=== PATIENT | male | born 1945 | race Caucasian/White ===

== ENCOUNTER → 2021-12-07 | Outpatient (CLI) | payer SELFPAY, OTHER ==
--- NOTE | 2021-12-07 06:41 | MRI_ITS ---
STUDY: MRI LEFT SHOULDER REASON FOR EXAM: Left shoulder pain for 4 months, decreased range of motion, no specific injury. TECHNIQUE: Standardized fat and water weighted pulse sequences were obtained in all 3 orthogonal planes. COMPARISON: None. FINDINGS: There is mild supraspinatus/infraspinatus tendinosis (T2 coronal images 8-14) without discrete tendon tear. Normal subscapularis tendon. Normal teres minor tendon. Normal supraspinatus muscle. Normal infraspinatus muscle. Normal subscapularis muscle. Normal teres minor muscle. Normal glenohumeral articulation. Normal humeral head and visualized proximal humerus. Normal biceps labral complex. Normal intracapsular long biceps tendon. Normal labrum. Normal capsulo- ligamentous complex. There is acromioclavicular arthrosis without substantial undersurface osteophytes (T2 sagittal image 5). There is a Type II morphology (curved), with a neutral orientation. There is a small volume of subacromial-subdeltoid bursal fluid. Normal visualized coracohumeral and coracoacromial ligaments. Normal deltoid muscle. Normal trapezius muscle. MRI/Upper Ext Joint Only(Routine) IMPRESSION: Mild supraspinatus/infraspinatus tendinosis without demonstrated rotator cuff tear. Acromioclavicular arthrosis. Mild subacromial-subdeltoid bursitis. Electronically Signed: Ricardo Hernandez MD at 8:56 EDT ,
--- NOTE | 2021-12-07 06:41 | MRI_ITS ---
STUDY: MRI RIGHT SHOULDER REASON FOR EXAM: Right shoulder pain for 4 months, decreased range of motion, no specific injury. TECHNIQUE: Standardized fat and water weighted pulse sequences were obtained in all 3 orthogonal planes. COMPARISON: None. FINDINGS: There is supraspinatus tendinosis and a small intrasubstance partial-thickness tear of the distal supraspinatus tendon (T2 coronal image 11) measuring 0.7 cm in length. Normal infraspinatus tendon. Normal subscapularis tendon. Normal teres minor tendon. Normal supraspinatus muscle. Normal infraspinatus muscle. Normal subscapularis muscle. Normal teres minor muscle. Normal glenohumeral articulation. Normal humeral head and visualized proximal humerus. There is a suspected SLAP lesion (T2 coronal images 8-10). Normal intracapsular long biceps tendon. Normal capsulo- ligamentous complex. There is acromioclavicular arthrosis without substantial undersurface osteophytes (T2 sagittal image 13). There is a Type II morphology (curved), with a neutral orientation. There is a small volume of subacromial-subdeltoid bursal fluid. Normal visualized coracohumeral and coracoacromial ligaments. Normal deltoid muscle. Normal trapezius muscle. MRI/Upper Ext Joint Only(Routine) IMPRESSION: Small intrasubstance partial-thickness tear and tendinosis of the supraspinatus tendon. Suspected SLAP lesion. Acromioclavicular arthrosis. Mild subacromial-subdeltoid bursitis. Electronically Signed: Ricardo Hernandez MD at 8:55 EDT ,
== END | disposition home or self-care (01) ==
PROVIDERS: PCP Family Medicine
DX: M75.101 Unspecified rotator cuff tear or rupture of right shoulder, not specified as traumatic (principal); M75.102 Unspecified rotator cuff tear or rupture of left shoulder, not specified as traumatic
CPT/HCPCS: 73221

== ENCOUNTER → 2023-10-09 | Outpatient (CLI) | payer OTHER, SELFPAY ==
[2023-10-09 11:30] LABS: Hematocrit 39.2 % (40-54); Mean Corp Hgb Conc 33.2 g/dL (32-36); Mean Corpuscular Hgb 28.3 pg (27.0-32.0); Mean Corpuscular Volume 85.4 fL (80-94); Mean Platelet Vol. 9.7 fl (6.2-12.0); Platelet Count 215 K/mm3 (150-450); RBC Distribution Width CV 14.5 % (11.6-14.6); RBC Distribution Width SD 44.7 fl (35.1-43.9); Red Blood Count 4.59 M/mm3 (4.6-6.2); White Blood Count 8.2 K/mm3 (4.4-11.0)
[2023-10-09 11:55] LABS: ALB/GLOB Ratio 0.9 RATIO (0.9-2.4); AST(SGOT) 9 U/L (15-37); Alanine Aminotransfer ALT/SGPT 19 U/L (16-61); Albumin, Serum 3.5 g/dL (3.2-5.0); Alkaline Phosphatase 105 U/L (45-117); Anion Gap 5 (5-15); BUN 21 mg/dL (7-18); BUN/Creat Ratio 16.7 RATIO (10-20); Calcium,Total 9.6 mg/dL (8.5-10.1); Chloride 106 mmol/L (98-107); Cholesterol 105 mg/dL (200); Creatinine, Serum 1.26 mg/dL (0.70-1.30); EST Glomerular Filtration Rate 59 mL/min (>60); Est Glom Filt Rate - Afr Amer 71 mL/min (>60); Globulin 3.9 g/dL (2.2-4.2); Glucose 128 mg/dL (74-106); High Density Lipoprotein 46 mg/dL; Potassium 4.1 mmol/L (3.5-5.1); Protein, Total 7.4 g/dL (6.4-8.2); Sodium Level 139 mmol/L (136-145); Triglycerides 125 mg/dL; Very Low Density Lipoprotein 25 mg/dL (5-40)
== END | disposition home or self-care (01) ==
LOC: LAB 10:50
PROVIDERS: PCP Nurse Practitioner Family; Referring Provider Internal Medicine Cardiovascular Disease; Visit Provider Internal Medicine Cardiovascular Disease
DX: I11.0 Hypertensive heart disease with heart failure (principal); I48.0 Paroxysmal atrial fibrillation; R55 Syncope and collapse; E78.5 Hyperlipidemia, unspecified; I25.10 Atherosclerotic heart disease of native coronary artery without angina pectoris; R06.02 Shortness of breath
CPT/HCPCS: 36415; 80053; 80061; 85027

== ENCOUNTER → 2023-10-26 | Outpatient (CLI) | payer OTHER, SELFPAY | END | disposition home or self-care (01) | LOC: PSN 08:43 | PROVIDERS: PCP Nurse Practitioner Family; Referring Provider Internal Medicine Cardiovascular Disease; Visit Provider Internal Medicine Cardiovascular Disease | DX: R55 Syncope and collapse (principal); I48.0 Paroxysmal atrial fibrillation; I49.1 Atrial premature depolarization | CPT/HCPCS: 93225; 93226 ==

== ENCOUNTER → 2023-10-29 | Outpatient (CLI) | payer SELFPAY, OTHER ==
--- NOTE | 2023-10-29 08:35 | ECHOCS_ITS ---
Reason For Study: SOB/Dyspnea Procedure This was a 2D Doppler, Color Flow transthoracic echocardiogram. The study was technically difficult. Contrast injection was performed. Exam performed in department. Left Ventricle Normal size and thickness. The left ventricular ejection fraction is 60 %. Stage 1 diastolic dysfunction. Right Ventricle Normal right ventricle. Atria There is mild biatrial dilatation. Bubble contrast study positive for tiny PFO. Mitral Valve Mild mitral annular calcification. Trivial mitral valve insufficiency. Tricuspid Valve Trivial tricuspid valve insufficiency. Normal pulmonary artery pressure. Aortic Valve Aortic sclerosis, no stenosis. Mild (1+) aortic valve insufficiency. Pulmonic Valve The pulmonic valve is not well visualized. Great Vessels Moderately dilated aortic root. Pericardium/Pleural No pericardial effusion. Medication 22 gauge I.V. with prn adaptor inserted into right arm. Diluted definity 2ml given slow IV push to enhance endocardial definition. Performed a rapid injection of agitated mix of 9 cc saline and 1cc air to assess for atrial septal defect. MMode/2D Measurements & Calculations LVIDd: 4.6 cm IVSd: 1.00 cm Ao root diam: 4.2 cm LVIDs: 3.7 cm LVPWd: 0.87 cm LA dimension: 4.3 cm RVDd: 3.6 cm FS: 20.7 % LAV(MOD-bp): 52.3 ml LVAd ap4: 30.8 cm2 SV(MOD-sp4): 55.1 ml LAV(MOD-bp) Indexed: 25.8 ml/m2 LVLd ap4: 8.0 cm LAV(MOD-sp2): 65.7 ml EDV(MOD-sp4): 98.5 ml LAV(MOD-sp4): 41.4 ml EDV(sp4-el): 100.3 ml LVAs ap4: 19.0 cm2 LVLs ap4: 6.9 cm ESV(MOD-sp4): 43.4 ml ESV(sp4-el): 44.1 ml EF(MOD-sp4): 56.0 % EF(sp4-el): 56.0 % SV(sp4-el): 56.2 ml LA A4 area: 17.8 cm2 RA A4 area: 12.5 cm2 TAPSE: 1.6 cm Time Measurements MV dec time: 0.33 sec Doppler Measurements & Calculations MV E max ubaldo: 42.6 cm/sec Lat Peak E' Ubaldo: 9.7 cm/sec Med Peak E' Ubaldo: 6.6 cm/sec MV A max ubaldo: 76.3 cm/sec E/E' lat: 4.4 E/E' med: 6.4 MV E/A: 0.56 MV V2 max: 78.4 cm/sec MV P1/2t max ubaldo: 51.5 cm/sec Ao V2 max: 176.3 cm/sec MV max P.5 mmHg MV P1/2t: 108.0 msec Ao max P.4 mmHg MV V2 mean: 39.0 cm/sec Ao V2 mean: 116.7 cm/sec MV mean P.74 mmHg MV dec slope: 139.6 cm/sec2 Ao mean P.3 mmHg MV V2 VTI: 21.1 cm MVA(P1/2t): 2.0 cm2 Ao V2 VTI: 29.8 cm AV (velocity ratio): 0.60 AI max ubaldo: 431.2 cm/sec LV V1 max: 81.6 cm/sec PA V2 max: 135.6 cm/sec AI max P.4 mmHg LV V1 max P.7 mmHg PA max PG (full): 6.4 mmHg LV V1 mean P.4 mmHg PA V2 mean: 79.2 cm/sec AI dec slope: 208.2 cm/sec2 LV V1 mean: 54.9 cm/sec PA mean PG (full): 2.6 mmHg AI P1/2t: 606.6 msec LV V1 VTI: 17.9 cm TR max ubaldo: 240.3 cm/sec TR max P.1 mmHg ECHO/Echo Complete W/ Contrast Interpretation Summary The left ventricular ejection fraction is 60 %. Stage 1 diastolic dysfunction. Bubble contrast study positive for tiny PFO. Mild mitral annular calcification. Aortic sclerosis, no stenosis. Mild (1+) aortic valve insufficiency. Moderately dilated aortic root. Ordering Physician: Niranjan Vallecillo Referring Physician: Niranjan Vallecillo Performed By: Atul Zavala, DICK
== END | disposition home or self-care (01) ==
LOC: CVS 08:33
PROVIDERS: PCP Nurse Practitioner Family; Referring Provider Internal Medicine Cardiovascular Disease; Visit Provider Internal Medicine Cardiovascular Disease
DX: I25.10 Atherosclerotic heart disease of native coronary artery without angina pectoris (principal)
CPT/HCPCS: 93306; Q9957; A4216; C8929

== ENCOUNTER → 2024-02-27 | Outpatient (CLI) | payer OTHER, SELFPAY ==
[2024-02-27 11:08] LABS: AST(SGOT) 12 U/L (15-37); Alanine Aminotransfer ALT/SGPT 14 U/L (16-61); Albumin, Serum 3.3 g/dL (3.2-5.0); Alkaline Phosphatase 81 U/L (45-117); Anion Gap 5 (5-15); BUN 19 mg/dL (7-18); BUN/Creat Ratio 14.6 RATIO (10-20); Calcium,Total 9.3 mg/dL (8.5-10.1); Chloride 110 mmol/L (98-107); EST Glomerular Filtration Rate 57 mL/min (>60); Est Glom Filt Rate - Afr Amer 69 mL/min (>60); Globulin 3.4 g/dL (2.2-4.2); Glucose 120 mg/dL (74-106); Magnesium 1.9 mg/dL (1.6-2.6); Potassium 3.8 mmol/L (3.5-5.1); Protein, Total 6.7 g/dL (6.4-8.2); Sodium Level 141 mmol/L (136-145)
== END | disposition home or self-care (01) ==
LOC: LAB 09:47
PROVIDERS: PCP Nurse Practitioner Family; Referring Provider Internal Medicine Cardiovascular Disease; Visit Provider Internal Medicine Cardiovascular Disease
DX: I10 Essential (primary) hypertension (principal); I48.0 Paroxysmal atrial fibrillation
CPT/HCPCS: 80053; 83735

== ENCOUNTER → 2024-09-22 | Outpatient (CLI) | payer OTHER, SELFPAY ==
[2024-09-22 11:22] LABS: Absolute Lymphocyte Count 1.29 X10^3/uL (0.83-4.51); Absolute Neutrophil Count 5.3 X10^3/uL (2.0-7.7); Basophil# 0.03 X10^3/uL; Basophil% 0.4 % (0-1); Eosinophil# 0.21 X10^3/uL; Eosinophils% 2.7 % (0-5); Hematocrit 36.4 % (40-54); Hemoglobin 12.1 g/dL (13.0-16.5); Lymphocyte # 1.29 X10^3/ul (0.83-4.51); Lymphocyte % 16.8 % (19-41); Mean Corp Hgb Conc 33.2 g/dL (32-36); Mean Corpuscular Hgb 29.4 pg (27.0-32.0); Mean Corpuscular Volume 88.6 fL (80-94); Mean Platelet Vol. 9.9 fl (6.2-12.0); Monocyte# 0.78 X10^3/uL; Monocyte% 10.2 % (0-10); NRBC Flagged by Analyzer 0 % (0-5); Neutrophil # 5.34 X10^3/uL (2.7-7.7); Neutrophil % 69.5 % (47-70); Platelet Count 188 K/mm3 (150-450); RBC Distribution Width CV 13.5 % (11.6-14.6); RBC Distribution Width SD 43.5 fl (35.1-43.9); Red Blood Count 4.11 M/mm3 (4.6-6.2); White Blood Count 7.7 K/mm3 (4.4-11.0)
[2024-09-22 12:13] LABS: Anion Gap 10 (5-15); BUN 23 mg/dL (4-19); BUN/Creat Ratio 17.1 RATIO (10-20); Calcium,Total 9.5 mg/dL (7.6-11.0); Carbon Dioxide 24.8 mmol/L (21.0-32.0); Chloride 104 mmol/L (98-108); Creatinine, Serum 1.33 mg/dL (0.70-1.20); EST Glomerular Filtration Rate 55 (>60); Glucose 166 mg/dL (70-99); Potassium 4.4 mmol/L (3.3-5.1); Sodium Level 139 mmol/L (133-145)
--- OUTSIDE RECORDS SUMMARY | 2024-09-22 22:19 | XMS RPT_ITS | CCD ---
Author Organization [facility] Care Team Providers Care Software Configuration Engineer Name Role Phone ALPA BOWLES MD Primary Care Physician TY WEEMS MD Attending Unavailable FAUSTINA BENNETT, TY Admitting Unavailable ALPA BOWLES MD Consulting Unavailable ALPA BOWLES MD Primary Care Unavailable DAKSHA CLINTON-CCHARLA Unavailable ISRAEL GR MD Unavailable ALPA BOWLES MD Unavailable SHAHLA BOWLES MD Unavailable Nancy GR MD Unavailable NELDA NESBITT Unavailable Unavailable Devon RN, Mariana Unavailable Unavailable Unavailable Unavailable Kristina LUJAN, Natalie Unavailable Unavaila ble VONDA ADLER MD Attending UnavailVONDA Howell MD Admitting Unavailabl VONDA Butler MD Primary Care Unavailabl e BOWLES, SHAHLA T Consulting Unavailable PROVIDER, UNKNOWN Consulting Unavailable PROVIDER, UNKNOWN Consulting Unavailable PROVIDER, UNKNOWN Consulting Unavailable VONDA ADLER MD Admitting UnavailVONDA Howell MD Primary Care Unavailabl VONDA Butler MD Attending Unavailabl e BOWLES, SHAHLA T Consulting Unavailable PROVIDER, UNKNOWN Consulting Unavailable PROVIDER, UNKNOWN Consulting Unavailable PROVIDER, UNKNOWN Consulting Unavailable BOWLES, SHAHLA T Consulting Unavailable BOWLES, SHAHLA T Attending Unavailable BOWLES, SHAHLA T Admitting Unavailable BOWLES, SHAHLA T Primary Care Unavailable PROVIDER, UNKNOWN Consulting Unavailable PROVIDER, UNKNOWN Consulting Unavailable PROVIDER, UNKNOWN Consulting Unavailable VONDA ADLER MD Attending UnavailVONDA Howell MD Admitting Unavailabl VONDA Butler MD Primary Care Unavailabl e BOWLES, SHAHLA T Consulting Unavailable PROVIDER, UNKNOWN Consulting Unavailable PROVIDER, UNKNOWN Consulting Unavailable PROVIDER, UNKNOWN Consulting Unavailable VONDA ADLER MD Admitting Unavailabl e VONDA ADLER MD Primary Care Unavailabl e BOWLES, SHAHLA T Consulting Unavailable VONDA ADLER MD Attending Unavailabl e PROVIDER, UNKNOWN Consulting Unavailable PROVIDER, UNKNOWN Consulting Unavailable PROVIDER, UNKNOWN Consulting Unavailable VONDA ADLER MD Primary Care Unavailabl e BOWLES, SHAHLA T Consulting Unavailable VONDA ADLER MD Attending Unavailabl e VONDA ADLER MD Admitting Unavailabl e PROVIDER, UNKNOWN Consulting Unavailable PROVIDER, UNKNOWN Consulting Unavailable PROVIDER, UNKNOWN Consulting Unavailable BOWLES, SHAHLA T Primary Care Unavailable BOWLES, SHAHLA T Consulting Unavailable BOWLES, SHAHLA T Attending Unavailable BOWLES, SHAHLA T Admitting Unavailable PROVIDER, UNKNOWN Consulting Unavailable PROVIDER, UNKNOWN Consulting Unavailable PROVIDER, UNKNOWN Consulting Unavailable SARA ROCHE MD Primary Care Unavailable SARA ROCHE MD Attending Unavailable BOWLES, SHAHLA T Consulting Unavailable BOWLES, SHAHLA T Referring Unavailable SARA ROCHE MD Admitting Unavailable PROVIDER, UNKNOWN Consulting Unavailable PROVIDER, UNKNOWN Consulting Unavailable PROVIDER, UNKNOWN Consulting Unavailable Unavailable Unavailable GR DIALYSIS REGISTERED NURSE-BC, GEMA R Unavailable [place] ASSET PROTECTION AGENT, Gema Unavailable Unavailable DAKSHA DIALYSIS REGISTERED NURSE-C, CHARLA Pearl Unavailable Unav ailable TOMMY DIALYSIS REGISTERED NURSE-C, MARICEL Unavailable Oh RMA, Romina Unavailable Unavailable Gr, Gema Primary Care Unavailable Avel, Niranjan Attending Unavailable Gr, Gema Referring Unavailable Gr, Gema Primary Care Unavailable Avel, Niranjan Referring Unavailable Avel, Niranjan Attending Unavailable Marcia Taylor NP Attending Unavailable Gr, Gema Primary Care Unavailable Avel, Niranjan Attending Unavailable Gr, Gema Primary Care Unavailable Avel, Niranjan Attending Unavailable Gr, Gema Primary Care Unavailable Gr, Gema Referring Unavailable Avel, Niranjan Attending Unavailable Gr, Gema Primary Care Unavailable Gr, Gema Referring Unavailable Avel, Niranjan Attending Unavailable Avel, Niranjan Referring Unavailable Gr, Gema Primary Care Unavailable Avel, Niranjan Attending Unavailable Gr, Gema Primary Care Unavailable Avel, Niranjan Referring Unavailable Gr, Gema Primary Care Unavailable Vael, Niranjan Referring Unavailable Niranjan Vallecillo Attending Unavailable Niranjan Vallecillo Attending Unavailable Niranjan Vallecillo Referring Unavailable Gema Gr Primary Care Unavailable EMILEE PATTERSON Attending Unavailable EMILEE PATTERSON Referring Unavailable BRENNEN BOLIVAR Primary Care Unavailable Gema Darby Referring Provider Marcia Baum Attending Provider [phone] Brennen Bolivar MD Primary Care Provider Medications Current Medications Medication Drug Class(es) Dates Sig (Normalized) Sig (Original) apixaban 5 mg oral tablet (16 sources) Factor Xa Inhibitor Start: 08-03-2023 End: 06-16-2024 take 1 tablet by mouth twice daily Apixaban (Eliquis) 5 mg tablet Active 5 mg PO TWICE A DAY 180 June 16, 2024 1:18pm atorvastatin 20 mg oral tablet (20 sources) HMG-CoA Reductase Inhibitor Start: 02-27-2024 take 1 tablet by mouth once daily Atorvastatin 20 mg tablet Active 20 mg PO daily February 27, 2024 1:00am Start: 03-07-2023 End: 02-27-2024 take 1 tablet by mouth at bedtime Atorvastatin 40 mg tablet Discontinued 40 mg PO AT BEDTIME August 08, 2023 12:14pm February 27, 2024 2:27pm Comment on above: Cardio furosemide 20 mg oral tablet (20 sources) Loop Diuretic Start: 02-27-2024 take 1 tablet by mouth once daily Furosemide 20 mg tablet Active 20 mg PO daily February 27, 2024 1:00am On Hold: dizziness Start: 08-08-2023 End: 02-27-2024 take 1 tablet by mouth once daily Furosemide 40 mg tablet Discontinued 40 mg PO DAILY August 08, 2023 12:14pm February 27, 2024 2:26pm Start: 08-03-2023 End: 08-08-2023 Furosemide 40 mg tablet Disc ontinued 20 mg PO DAILY August 03, 2023 11:17am August 08, 2023 11:08am Start: 03-07-2023 End: 08-03-2023 take 1 tablet by mouth once daily Furosemide 40 mg tablet Discontinued 40 mg PO DAILY August 03, 2023 12:00am August 03, 2023 11:21am Comment on above: Cardio spironolactone 25 mg oral tablet (20 sources) Aldosterone Antagonist Start: 03-07-20 End: 08-02-19 take 1 tablet by mouth once daily Spironolactone 25 mg tablet Active 25 mg PO DAILY August 01, 2024 8:22am Comment on above: Cardio tamsulosin hydrochloride 0.4 mg oral capsule (20 sources) alpha-Adrenergic Leonid Start: 03-16-20 tamsulosin 0.4 mg capsule ; 1 capsule daily for 30 days Quantity: 30 {Capsule} Refills: 5 Ordered: 01-Apr-2024 MD SHAHLA BOWLES Start: 01-Apr-2024 Start: 03-06-2023 tamsulosin 0.4 mg oral capsule Dose : 0.4 mg = 1 cap(s), Oral, qDay, # 90 cap(s), 0 Refill(s) Start Date: 03/06/23 Status: Ordered Completed/Discontinued Medications Medication Drug Class(es) Dates Sig (Normalized) Sig (Original) dextromethorphan hydrobromide 2 mg/ml / guaiFENesin 20 mg/ml oral solution (20 sources) Uncompetitive T-yqilxo-B-aspartat e Receptor Antagonist, Sigma-1 Agonist Start: 04-20-2023 End: 10-02-2023 take 5 mL by mouth every four to six hours as needed dextromethorphan- guaifenesin 10 mg-100 mg/5 mL oral syrup ; 5 Milliliter every 4-6 hours as needed for cough for 0 days Quantity: 120 {Milliliter} Refills: 0 Ordered: 02-Oct-2023 MIGEL Shrestha Start: 20-Apr-2023 End: 02-Oct-2023 Status: Inactive Comments: Medication taken as needed. medication to be dispensed in office Comment on above: Medication taken as needed. medication to be dispensed in office losartan potassium 50 mg oral tablet (20 sources) Angiotensin 2 Receptor Leonid Start: 08-08-2023 End: 10-09-2023 take 1 tablet by mouth once daily Losartan 50 mg tablet Discontinued 50 mg PO DAILY August 08, 2023 12:00am October 09, 2023 9:18am Start: 08-03-2023 End: 08-03-2023 Losartan 25 mg tablet Discon tinued 12.5 mg PO DAILY August 03, 2023 12:00am August 03, 2023 11:18am Start: 03-07-2023 losartan 25 mg oral tablet Dose : 25 mg = 1 tab(s), Oral, qDay, # 30 tab(s), 3 Refill(s), Pharmacy: [facility], 170.2, cm, 03/06/23 14:03:00 EST, Height, kg, 03/06/23 14:03:00 EST, Dosing Weight Start Date: 03/07/23 Status: Ordered losartan 25 mg t ablet ; 1/2 daily (25 mg) Comments: Cardio Comment on above: Cardio 24 hr metoprolol succinate 25 mg extended release oral tablet (20 sources) beta-Adrenergic Leonid Start: 03-07-20 End: 11-05-19 take 1 tablet by mouth once daily Metoprolol Succinate 25 mg tablet extended release 24 hr Discontinued 25 mg PO DAILY August 03, 2023 12:00am November 05, 2023 4:42pm mexiletine hydrochloride 200 mg oral capsule (14 sources) Antiarrhythmic Start: 08-03-19 End: 02-27-20 take 1 capsule by mouth every twelve hours Mexiletine 200 mg capsule Discontinued 200 mg PO Q12H 60 August 08, 2023 12:14pm February 27, 2024 2:27pm mexiletine 200 m g capsule ; 1 two times daily (200 mg) Status: Inactive Comments: Cardio Comment on above: Cardio predniSONE 10 mg oral tablet (20 sources) Start: 04-20-2023 End: 04-25-2023 predniSONE 10 mg tablet ; 4 Tablet daily for 5 days Quantity: 30 {Tablet} Refills: 0 Ordered: 30-Apr-2023 MD SHAHLA BOWLES Start: 20-Apr-2023 End: 25-Apr-2023 Status: Inactive Comments: medication to be dispensed in office Comment on above: medication to be dis pensed in office sacubitril 24 mg / valsartan 26 mg oral tablet (1 source) Angiotensin 2 Receptor Leonid Start: 08-03-2023 End: 08-08-2023 Sacubitril-Valsartan (Entresto) 24-26 mg tablet Discontinued 1 {tbl} PO TWICE A DAY August 03, 2023 12:00am August 08, 2023 12:04pm Problems Active Problems Problem Classification Problem Date Documented Da te Episodic/Chronic Abdominal pain (20 sources) Left lower quadrant pain; Translations: [Left lower quadrant pain] 02-24-2021 Episodic Cardiac dysrhythmias (10 sources) Atrial premature complex ; Translations: [Atrial premature depolarization] Onset: 01-23-2024 Chronic Conditions associated with dizziness or vertigo (2 sources) Dizziness; Translations: [Dizziness and giddiness] 09-22-2024 Episodic Congestive heart failure; nonhypertensive (20 sources) Heart failure; Translations: [Heart failure, unspecified] Onset: 03-07-2023 Chronic Comment on above: 40-45% Coronary atherosclerosis and other heart disease (3 sources) Atherosclerotic heart disease of [place] coronary artery without angina pectoris; Translations: [Coronary arteriosclerosis] Onset: 02-27-2024 10-02-2023 Chronic Disorders of lipid metabolism (4 sources) Hyperlipidemia; Translations: [Hyperlipidemia, unspecified] Onset: 03-07-2023 Chronic Essential hypertension (20 sources) Essential hypertension; Translations: [Essential (primary) hypertension] Onset: 03-07-2023 Chronic Comment on above: Soft pressures with fatigue since starting quadruple therapy. Possible heart block in office. Recommend discontinuing metoprolol and follow up cardiology. Will get EKG at their office tomorrow morning. Soft pressures with fatigue since starting quadruple therapy. Possible heart block in office. Recommend discontinuing metoprolol and follow up cardiology. Will get EKG at their office tomorrow morning.Syncopal episode likely due to orthostatic hypotension. Saw his single stroke preformer for this already and being managed. Fluid and electrolyte disorders (2 sources) Hypokalemia; Translations: [Hypokalemia] Onset: 03-07-2023 Episodic Gout and other crystal arthropathies (1 source) Other chondrocalcinosis, right knee; Translations: [Other chondrocalcinosis, right knee] Onset: 04-11-2023 Chronic Heart valve disorders (12 sources) Aortic valve regurgitation; Translations: [Nonrheumatic aortic (valve) insufficiency] 10-30-2023 Chronic Comment on above: Per echo 10/2023 Hyperplasia of prostate (20 sources) Nocturia due to benign prostatic hypertrophy; Translations: [Benign prostatic hyperplasia with lower urinary tract symptoms] 03-16-2023 Chronic Hypertension with complications and secondary hypertension (2 sources) Hypertensive heart failure; Translations: [Hypertensive heart disease with heart failure] Onset: 10-17-2023 Chronic Immunizations and screening for infectious disease (20 sources) Requires diphtheria, tetanus and pertussis vaccination; Translations: [Encounter for immunization] 02-11-2020 Episodic Malaise and fatigue (3 sources) Other fatigue; Translations: [Fatigue] Onset: 02-27-2024 08-03-2023 Episodic Other aftercare (20 sources) Post-discharge follow-up; Translations: [Encounter for follow-up examination after completed treatment for conditions other than malignant neoplasm] 03-15-2023 Episodic Other gastrointestinal disorders (20 sources) Fecal incontinence with fecal urgency; Translations: [Full incontinence of feces] 10-02-2023 Episodic Other lower respiratory disease (2 sources) Dyspnea; Translations: [Shortness of breath] Onset: 03-07-2023 Episodic Other non-traumatic joint disorders (20 sources) Pain in right knee; Translations: [Pain in joint, lower leg] Onset: 04-11-2023 04-05-2023 Episodic Other non-traumatic joint disorders (20 sources) Ankle pain; Translations: [Pain in right ankle and joints of right foot] 04-05-2023 Episodic Other non-traumatic joint disorders (2 sources) Pain in right ankle and joints of right foot; Translations: [Pain in right ankle and joints of right foot] Onset: 04-11-2023 Episodic Other non-traumatic joint disorders (1 source) Effusion, right ankle; Translations: [Effusion, right ankle] Onset: 04-11-2023 Episodic Other non-traumatic joint disorders (1 source) Pain in left knee; Translations: [Pain in left knee] Onset: 04-11-2023 Episodic Other non-traumatic joint disorders (1 source) Effusion, left knee; Translations: [Effusion, left knee] Onset: 04-11-2023 Episodic Other non-traumatic joint disorders (20 sources) Multiple stiff joints; Translations: [Stiffness of unspecified joint, not elsewhere classified] 10-02-2023 Episodic Other nutritional; endocrine; and metabolic disorders (2 sources) Hypomagnesemia; Translations: [Hypomagnesemia] Onset: 03-07-2023 Chronic Other screening for suspected conditions (not mental disorders or infectious disease) (20 sources) Screening status; Translations: [Encounter for screening for malignant neoplasm of colon] 02-11-2020 Episodic Other upper respiratory disease (20 sources) Breath smells unpleasant; Translations: [Halitosis] 02-11-2020 Episodic Jennifer-; endo-; and myocarditis; cardiomyopathy (except that caused by tuberculosis or sexually transmitted disease) (4 sources) Other cardiomyopathies; Translations: [Cardiomyopathy] Onset: 02-27-2024 10-02-2023 Chronic Residual codes; unclassified (1 source) Localized edema; Translations: [Localized edema] Onset: 03-07-2023 Episodic Residual codes; unclassified (20 sources) Bilateral lower limb edema; Translations: [Localized edema] 04-20-2023 Episodic Syncope (20 sources) Syncope and collapse; Translations: [Syncope and collapse] Onset: 02-27-2024 10-02-2023 Episodic Unclassified (20 sources) Knee pain - The onset of the knee pain has been acute and has been occurring in a persistent pattern for weeks. The knee pain involves both knees. The knee pain is described as being located in the anterior knee. Note for Knee pain: also pain in right ankle. Pt was seen 03-15-23 with ankle swelling. Edema improved. Saw Dr Adler yesterday and she restarted Toprol and decreased losartan to 1/2 tab. Ordered pt to wear heart event monitor for 1 week and got labs done yesterday. Follow up with cardio in 1 mo. 04-05-2023 Unclassified (20 sources) LAB DRAW - The labs drawn today include: other: Lyme. The lab was drawn from the left antecubital vein. The lab was ordered by Dr. Ju Bowles. 04-13-2023 Unclassified (15 sources) Fatigue - Symptoms include fatigue, weakness and poor sleep, while symptoms do not include impaired memory, impaired concentration, irritability or anxiety. Onset was 4 week(s) ago (getting worse). 04-20-2023 Unclassified (15 sources) [ADDITIONAL REASON] Edema - Symptoms include edema, while symptoms do not include weight gain. The edema involves both lower extremities. Onset was 2 month(s) ago (Getting worse since heart cath in February. Heart rate fluctuates). Note for Edema: NO chest pain or SOB. Coughing for week or so now. Heart skips a beat 04-20-2023 Unclassified (9 sources) Edema - Symptoms include edema, while symptoms do not include weight gain. The edema involves both lower extremities. Onset was 2 month(s) ago (Getting worse since heart cath in February. Heart rate fluctuates). Note for Edema: NO chest pain or SOB. Coughing for week or so now. Heart skips a beat 04-20-2023 Unclassified (9 sources) [ADDITIONAL REASON] Fatigue - Symptoms include fatigue, weakness and poor sleep, while symptoms do not include impaired memory, impaired concentration, irritability or anxiety. Onset was 4 week(s) ago (getting worse). 04-20-2023 Unclassified (12 sources) HYPERTENSION - The symptoms have been associated with syncope (Patient was out weedeating for about 20 minutes and wanted to go to bathroom. Pretty much passed out. Patient states he was just not clear, dizzy Patients son is concerned about this.), while the symptoms have not been associated with chest pain, diaphoresis, dyspnea, edema, headache, palpitations, visual disturbances or weakness. Note for HYPERTENSION: Patient was at [facility] 08/08/23. Patient does get dizzy upon standing up too quick. 10-02-2023 Unclassified (1 source) Other ventricular tachycardia; Translations: [Other ventricular tachycardia] Onset: 02-27-2024 Past or Other Problems Problem Classification Problem Date Documented Date Episodic/Chronic Other lower respiratory disease (1 source) Shortness of breath; Translations: [Shortness of breath] Onset: 09-11-2023 Episodic Unclassified (16 sources) Follow-up after Hospitalization - The diagnosis of CHF. New medicaitons include: Lipitor, Lasix, Spironolactone, Losartan, Toprol, and Tamsulosin. Note for Follow-up after Hospitalization: Pt was at [facility] on 03/05/23. He went to [facility] 03/06/23 and was discharged 03/07/23. He had a heart cath done. Follow up appt with Dr. Adler in Apr 2023. Pt is very fatigued and still has swelling in his legs that get painful at times. BP at home run low at times (systolic in the 90s). 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 03-15-2023 Unclassified (16 sources) [ADDITIONAL REASON] Transition into care - The patient is transitioning into care from a hospital and a summary of care was reviewed. 03-15-2023 Unclassified (20 sources) Abdominal Pain, Male - Note for Abdominal pain: would like referral for colonoscopy. 02-24-2021 Unclassified (20 sources) [ADDITIONAL REASON] Blood pressure check - Note for Blood pressure check-up: not on any BP meds. 02-24-2021 Unclassified (20 sources) Abdominal Pain, Male - Symptoms include abdominal pain (Left of umbilicus. Has had Hernia surgery in the past and is concerned that he has another hernia. No bulge of abdomen like previuosly. Denies vomiting, diarrhea, urinary burning or nausea.). 02-11-2020 Unclassified (20 sources) !Patient notification of lab results 1 - Gr. Note for !Patient notification of lab results 1: Ricco, your cholesterol and other labs look good. 02-03-2015 Unclassified (20 sources) Complete Physical - Male - Note for Complete physical exam: Last phy 2008. Also think he might have hernia. [place] Gr has done past surgeries. 02-02-2015 Unclassified (1 source) !Patient notification of lab results - Dr. Bowles. The test(s) that you had done were/was x-rays (There is some arthritis present in your knees, but nothing severe. We will wait on the results of your Lyme testing.). You should call our office if you have any questions. 04-13-2023 Unclassified (10 sources) Blood pressure check - Note for Blood pressure check-up: not on any BP meds. 02-24-2021 Unclassified (10 sources) [ADDITIONAL REASON] Abdominal Pain, Male - Note for Abdominal pain: would like referral for colonoscopy. 02-24-2021 Unclassified (20 sources) !Patient notification of lab results - Dr. Bowles. The test(s) that you had done were/was x-rays (There is some arthritis present in your knees, but nothing severe. The Lyme test came back normal.). You should call our office if you have any questions. 04-16-2023 Unclassified (14 sources) Transition into care - The patient is transitioning into care from a hospital and a summary of care was reviewed. 03-15-2023 Unclassified (14 sources) [ADDITIONAL REASON] Follow-up after Hospitalization - The diagnosis of CHF. New medicaitons include: Lipitor, Lasix, Spironolactone, Losartan, Toprol, and Tamsulosin. Note for Follow-up after Hospitalization: Pt was at [facility] ER on 03/05/23. He went to [facility] 03/06/23 and was discharged 03/07/23. He had a heart cath done. Follow up appt with Dr. Adler in Apr 2023. Pt is very fatigued and still has swelling in his legs that get painful at times. BP at home run low at times (systolic in the 90s). 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 03-15-2023 Unclassified (2 sources) Edema - Symptoms do not include edema. 04-28-2024 Unclassified (2 sources) [ADDITIONAL REASON] HYPERTENSION - There has been no associated chest pain, dyspnea or edema. 04-28-2024 Results Test Name Value Interpretation Reference Range Facility [facility] 05-15-2024 [facility] (CARMOB) RICCO ZARATE ([id number]) 1945 M DEF Date Time Provider Department 05/15/24 STIVEN ALICIA During your visit today, we recorded the following information about you: Benoit Cotton 05/15/2024 10:09 AM Signed Erin is calling to reschedule pt apt, apt has been rescheduled Benoit Cotton 05/15/2024 11:03 AM Signed Erin is calling back states pt is also being [facility] they want to cancel apt. Apt has been cancelled Allergies As of Date: 05/15/2024 (No Known Allergies) Date Reviewed: 01/23/2024 Reviewed by: Soo Macias MA - Fully Assessed Reason for Visit: Appointment [[id number]] Prescriptions as of 05/15/2024 - apixaban (ELIQUIS) 5 mg tab(s) Take 5 mg by mouth two times a day. - atorvastatin (LIPITOR) 40 mg tablet Take 40 mg by mouth daily at bedtime. - furosemide (LASIX) 40 mg tablet Take 1 tablet by mouth every afternoon. - metoprolol succinate ER (TOPROL XL) 25 mg 24 hr tablet Take 1 tablet by mouth every afternoon. - mexiletine (MEXITIL) 200 mg capsule Take 1 capsule by mouth every 12 hours. - spironolactone (ALDACTONE) 25 mg tablet Take 1 tablet by mouth every afternoon. - tamsulosin (FLOMAX) 0.4 mg Take 1 capsule by mouth every afternoon. Problem List As Of Date: 05/15/2024 (None) Encounter Status:Closed by BENOIT COTTON on 05/15/24 [facility]FFN Telephone (DIANAMOB) RICCO ZARATE ([id number]) 1945 M DEF Date Time Provider Department 05/15/24 EMILEE PATTERSON During your visit today, we recorded the following information about you: Benoit Cotton 05/15/2024 10:15 AM Signed Erin is calling states pt single stroke preformer Dr Vallecillo at the [facility] wants pt to have an ablation, pt is in afib. Benoit Cotton 05/15/2024 11:04 AM Signed Erin is calling back pt is being seen [facility] Allergies As of Date: 05/15/2024 (No Known Allergies) Date Reviewed: 01/23/2024 Reviewed by: Soo Macias MA - Fully Assessed Reason for Visit: Patient Question [1477] Prescriptions as of 05/15/2024 - apixaban (ELIQUIS) 5 mg tab(s) Take 5 mg by mouth two times a day. - atorvastatin (LIPITOR) 40 mg tablet Take 40 mg by mouth daily at bedtime. - furosemide (LASIX) 40 mg tablet Take 1 tablet by mouth every afternoon. - metoprolol succinate ER (TOPROL XL) 25 mg 24 hr tablet Take 1 tablet by mouth every afternoon. - mexiletine (MEXITIL) 200 mg capsule Take 1 capsule by mouth every 12 hours. - spironolactone (ALDACTONE) 25 mg tablet Take 1 tablet by mouth every afternoon. - tamsulosin (FLOMAX) 0.4 mg Take 1 capsule by mouth every afternoon. Problem List As Of Date: 05/15/2024 (None) Encounter Status:Closed by BENOIT COTTON on 05/15/24 [facility] 12 Lead EKG performed by [facility] on 02-27-2024 12 Lead EKG performed by [address] [id number] 12 Lead E[facility] performed by [facility] [place] 02/27/24 0910 MR#: [id number] Acct: [id number] Name: RICCO ZARATE Rep #: [id number] : 1945 79 From: Niranjan Vallecillo MD Attending Dr: Dr. Niranjan Vallecillo MD Status: DEP AMB Ordering Dr: Niranjan Vallecillo MD Date: 02/27/24 [place] [facility] [place] M C Admitted: [facility] [place]/12 Lead EKG performed by [facility] ECG Report Interpretation -----Sinus Rhythm - occasional ectopic ventricular beat - Nonspecific T-abnormality. ABNORMAL Electronically signed on 05/05/2024 at 11:[address] Niranajn Vallecillo [employer] Version [id number] 05/05/24 112 Date Niranjan Vallecillo MD CC: Gema Gr Date Dictated: 02/27/24909 Date Transcribed: 02/27/24909 Manager Fine Dining: IGNACIA Signed Normal [facility] Cardiology Visit Reporton Cardiology Visit Report [facility] [address] [place] [address] OFFICE VISIT Date of Service: 02/27/24 MR#: [id number] Acct: [id number] Name: RICCO ZARATE Rep #: [id number] : 1945 Provider: Dr. Niranjan Vallecillo MD Age/Sex: 79/M Location: [facility] [place] Status: Signed HPI HPI History of Present Illness Details: This gentleman with history of nonischemic cardiomyopathy, mild CAD diagnosed on coronary angiography, PVCs, paroxysmal atrial fibrillation and NSVT is here for follow-up visit. Denies any chest pains. No shortness of breath. No orthopnea PND. No ankle edema. Denies any palpitations. Occasionally feels lightheaded. No syncope or presyncope. Patient saw electrophysiology at [facility]. According to the patient's , it was advised that he stop taking his mexiletine. However he has not done that yet. He wanted to see us here before. Intake Vital Signs 10/09/23 09:12 02/27/24 08:23 Height 5 ft 7 in 5 ft 7 in Weight: 207 lb BMI 32.4 BP 100/68 Blood Pressure Location Lt brachial Position Sitting Respiration 18 Pulse 70 Pulse Source NIBP Intake Visit Reasons: 3 M French Tutor Required: No Accompanied by: Is patient in pain?: Yes Allergies No Known Allergies Allergy (Verified 02/27/24 09:02) Medications ???Medication ???Instructions ???Recorded ???Confirmed ???Type apixaban 5 mg tablet (Eliquis) 5 mg PO BID 08/03/23 02/27/24 History tamsulosin 0.4 mg capsule 0.4 mg PO QHS 08/03/23 02/27/24 History atorvastatin 40 mg tablet 40 mg PO QHS #30 tabs 08/08/23 02/27/24 Rx furosemide 40 mg tablet 40 mg PO DAILY #60 tabs 08/08/23 02/27/24 Rx mexiletine 200 mg capsule 200 mg PO Q12H #60 caps 08/08/23 02/27/24 Rx spironolactone 25 mg tablet 25 mg PO DAILY #30 tabs 08/08/23 02/27/24 Rx metoprolol succinate 25 mg 25 mg PO DAILY #90 tabs 11/05/23 02/27/24 Rx tablet,extended release 24 hr Ejection fraction %: 60 Have you fallen in the past year?: Yes (singular; dizzy episode; no major injuries) PFSH Medical History Bilateral edema of lower extremity Cardiomyopathy CHF (congestive heart failure) Chronic systolic (congestive) heart failure Coronary artery disease Dyslipidemia Fatigue Hypertension Insomnia Nonischemic cardiomyopathy NSVT (nonsustained ventricular tachycardia) PAC (premature atrial contraction) Pain in both knees Paroxysmal atrial fibrillation PVC (premature ventricular contraction) SOB (shortness of breath) Weakness Surgical History Hx of arthroscopy of right knee Hx of cardiac catheterization ( 03/07/23) Hx of inguinal hernia repair Hx of lithotripsy Family History Father , 82 No problems noted. Mother Cancer Brother CHF (congestive heart failure) Social History Smoking Status: Never smoker alcohol intake: never substance use type: does not use caffeine: Yes Type: carbonated beverages and coffee ROS Const Const: Negative for fatigue, weakness, headache(s) or weight gain ENT ENT: Positive for dizziness (episodic); Negative for headache(s), Nosebleed/epistaxis or balance problems Cardio Chest Pain: No Palpitations: No Edema: None Muscle aches with walking: None Resp Respiratory: Negative for SOB with activity, SOB at rest or SOB orthopnea SOB lying down GI GI: Negative nausea, vomiting or heartburn Musc Musc: Negative for muscle aches/ myalgia, muscle weakness, joint pain or balance problems Neuro Neuro: Positive for dizziness (episodic), lightheadedness (singular episode. resulted in fall with no injury) and near syncope; Negative for syncope, headache(s) or weakness Endo Endo: Negative for fatigue Cardiology Exam Const Appearance: comfortable and no acute distress Nutritional Appearance: well nourished Neck Neck: no JVD Carotids: Negative bruit Chest Auscultation: Bilateral: Clear to Auscultation Cardio Rate: regular rate Rhythm: regular rhythm Heart sounds: S1 normal and S2 normal 2/6 systolic murmur at base. Neuro General: patient alert, patient awake and patient oriented x3 Extremities Lower Extremity Edema: None: Bilateral Supplemental Info Supplemental Information Echocardiogram 10/29/2023: Interpretation Summary The left ventricular ejection fraction is 60 %. Stage 1 diastolic dysfunction. Bubble contrast study positive for tiny PFO. Mild mitral annular calcification. Aortic sclerosis, no stenosis. Mild (1+) aortic valve insufficiency. Moderately dilated aortic root. ECHOCARDIOGRAM 03/05/23: CONCLUSION 1. There is mild concentric left ventr (more content not included)... Normal [facility] Comprehensive Metabolic Prof ilon 02-27-2024 Albumin [Mass/Vol] 3.3 g/dL Normal 3.2-5.0 [facility] Comment on above: Performed By: #### L 501.5200, L500.4050 ####[facility] [address] [place], [address] Albumin/Globulin [Mass ratio] 1.0 {ratio} Normal 0.9-2.4 [facility] Comment on above: Performed By: #### L 501.5200, L500.4050 ####[facility] [address] [place], [address] ALK P 81 U/L Normal 45-117 [facility] Comment on above: Performed By: #### L 501.5200, L500.4050 ####[facility] [address] [place], [address] ALT [Catalytic activity/Vol] 14 U/L Low 16-61 [facility] Comment on above: Performed By: #### L 501.5200, L500.4050 ####[facility] [address] [place], [address] AST [Catalytic activity/Vol] 12 U/L Low 15-37 [facility] Comment on above: Performed By: #### L 501.5200, L500.4050 ####[facility] [address] [place], [address] Bilirubin [Mass/Vol] 0.40 mg/dL Normal 0.20-1.[address] [facility] Comment on above: Result Comment: For patients on eltrombopag therapy, use of Dimension [place] TBIL is not recommended. Performed By: #### L 501.5200, L500.4050 ####[facility] [address] [place], [address] BUN/CRE 14.6 RATIO Normal 10-20 [facility] Comment on above: Performed By: #### L 501.5200, L500.4050 ####[facility] [address] [place], [address] CA,Total 9.3 mg/dL Normal 8.5-10.1 [facility] Comment on above: Performed By: #### L 501.5200, L500.4050 ####[facility] [address] [place], [address] Chloride [Moles/Vol] 110 mmol/L High 98-[address] [facility] Comment on above: Performed By: #### L 501.5200, L500.4050 ####[facility] [address] [place], [address] CO2 [Moles/Vol] 27.0 mmol/L Normal 21.0-32.0 [facility] Comment on above: Performed By: #### L 501.5200, L500.4050 ####[facility] [address] [place], [address] Creatinine [Mass/Vol] 1.30 mg/dL Normal 0.70-1.30 [facility] Comment on above: Result Comment: The validity of the calculated GFR GFRAA in patients over 70 years has not been determined. Clinical correlation is essential. Performed By: #### L 501.5200, L500.4050 ####[facility] [address] [place], [address] EST GFR - AA 69 mL/min Normal >60 [facility] Comment on above: Result Comment: Afri can Swazi GFR Calc Performed By: #### L 501.5200, L500.4050 ####[facility] [address] [place], [address] GAP 5 Normal 5-15 [facility] Comment on above: Performed By: #### L 501.5200, L500.4050 ####[facility] [address] [place], [address] GFR/1.73 sq M.predicted among non-blacks MDRD (S/P/Bld) [Vol rate/Area] 57 mL/min/{1.73_m2} Low >60 [facility] Comment on above: Result Comment: Non- GFR Calc Performed By: #### L 501.5200, L500.4050 ####[facility] [address] [place], [address] Globulin (S) [Mass/Vol] 3.4 g/dL Normal 2.2-4.2 [facility] Comment on above: Performed By: #### L 501.5200, L500.4050 ####[facility] [address] [place], [address] Glucose [Mass/Vol] 120 mg/dL High 74-106 [facility] Comment on above: Result Comment: Fast ing Glucose result from 100 to 125 mg/dL suggests IMPAIRED HOMEOSTASIS per A.D.A. criteria. Performed By: #### L 501.5200, L500.4050 ####[facility] [address] [place], [address] Potassium [Moles/Vol] 3.8 mmol/L Normal 3.5-5.1 [facility] Comment on above: Performed By: #### L 501.5200, L500.4050 ####[facility] [address] [place], [address] Sodium [Moles/Vol] 141 mmol/L Normal 136-145 [facility] Comment on above: Performed By: #### L 501.5200, L500.4050 ####[facility] [address] [place], [address] T PROT 6.7 g/dL Normal 6.4-8.2 [facility] Comment on above: Performed By: #### L 501.5200, L500.4050 ####[facility] [address] [place], [address] Urea nitrogen [Mass/Vol] 19 mg/dL High 7-18 [facility] Comment on above: Performed By: #### L 501.5200, L500.4050 ####[facility] [address] [place], [address] Magnesiumon 02-27-2024 Magnesium [Mass/Vol] 1.9 mg/dL Normal 1.6-2.[address] [facility] Comment on above: Performed By: #### L 501.5200, L500.4050 ####[facility] [address] [place], [address] CNOVon 01-23-2024 CNOV Office Visit (DIANAMOB ) RICCO ZARATE ([id number]) 1945 M DEF Date Time Provider Department 01/23/24 1:00 PM EMILEE PATTERSON During your visit today, we recorded the following information about you: Pulse Blood pressure Weight Height 104/minute 103/71 92.1 kg 1.702 m Emilee Patterson MD 02/21/2024 4:26 PM Signed [facility] Department of Cardiovascular Medicine SECTION OF CARDIAC PACING and ELECTROPHYSIOLOGY OUTPATIENT VISIT DATE January 23, 2024 OUTPATIENT VISIT TYPE NEW PRIMARY CARE PHYSICIAN: Gema Gr [address] [place] [address] REFERRING PHYSICIAN: Niranjan Vallecillo MD [facility] [address] [place] [address] CHIEF COMPLAINT: Consultation requested by Emilee Patterson for an opinion regarding Ricco Zarate. My final recommendations will be communicated back to the requesting physician by way of shared Medical record or letter to requesting physician via US mail. HISTORY OF PRESENT ILLNESS: Mr. Zarate is a 79 year old male referred by Dr Vallecillo with past medical history of chronic systolic CHF, fatigue, HLD, HN, insomnia, NICM, NSVT, PAC/PVCs, paroxysmal atrial fibrillation, and SOB. He is on Toprol XL therapy however is not anticoagulated due to cost of Eliquis. He is referred for atrial ablation or watchman evaluation. Ricco presents for his office visit appointment this afternoon accompanied by his and son. He understands that he has been referred for consideration of treatment options for his AF. He admits that he cannot feel his AF. He denies any episodes of chest pain. His family reports that he has chronic dizziness since starting medication. Ricco admits to feeling a little bit dizzy at this time. Reviewed a BP/HR log. They report his Losartan was discontinued. He denies any cardiac-related physical restriction. They report that he has had more fatigue. He denies any palpitations. He was diagnosed with AF in February,. He has worn three monitors in the past. He was admitted to the hospital at the time of his diagnosis. He reports his dizziness is the same all the time. He was not dizzy prior to starting medication. Reviewed the nature, anatomy and physiology of AF with diagram. PAST CARDIAC HISTORY: PAST MEDICAL HISTORY Diagnosis Date Bilateral edema of lower extremity Chronic systolic CHF (congestive heart failure) (HCC) Fatigue HLD (hyperlipidemia) HTN (untreated) Insomnia NICM (nonischemic cardiomyopathy) (HCC) NSVT (nonsustained ventricular tachycardia) (HCC) Other ventricular tachycardia (HCC) PAC (premature atrial contraction) Pain in knee Paroxysmal atrial fibrillation (HCC) PVC (premature ventricular contraction) SOB (shortness of breath) Weakness PAST SURGICAL HISTORY Procedure Laterality Date CYSTOSCOPY,URETEROSCO PY,LITHOTRIPSY 12/08/2011 HEART CATHETERIZATION 03/07/2023 no signifiacant CAD identified KNEE ARTHROSCOPY/SURGERY Right REPAIR INGUINAL HERNIA SOCIAL HISTORY FAMILY HISTORY Problem Relation Age of Onset Cancer Mother No Known Problems Father Heart Failure Brother ALLERGIES: ALLERGIES No Known Allergies MEDICATIONS: atorvastatin (LIPITOR) 40 mg tablet Take 40 mg by mouth daily at bedtime. furosemide (LASIX) 40 mg tablet Take 1 tablet by mouth every afternoon. metoprolol succinate ER (TOPROL XL) 25 mg 24 hr tablet Take 1 tablet by mouth every afternoon. mexiletine (MEXITIL) 200 mg capsule Take 1 capsule by mouth every 12 hours. spironolactone (ALDACTONE) 25 mg tablet Take 1 tablet by mouth every afternoon. tamsulosin (FLOMAX) 0.4 mg Take 1 capsule by mouth every afternoon. REVIEW OF SYSTEMS: 10 system ROS was performed and is negative except except that which is listed in the HPI PHYSICAL EXAMINATION: BP 103/71 (BP Site: Left Arm, BP Position: Sitting, BP Cuff Size: Regular Adult) Pulse 104 Ht 170.2 cm (5' 7) Wt 92.1 kg (203 lb) SpO2 94% BMI 31.79 kg/m? General: Well appearing, in no acute distress. Skin: No clubbing, no cyanosis. Eyes: Extra ocular movements intact Oropharynx: Teeth in good repair. Neck: No jugular venous distention, no carotid bruits, carotids have a normal upstroke, no palpable thyromegaly. Lungs: Clear to auscultation bilaterally, no wheezing or rhonchi. Heart: Regular rhythm, PMI not displaced, S1, S2 normal, no S3, no S4, no heaves, no rub and no murmur. Abdomen: Soft, nontender, bowel sounds normal, no palpable organomegaly, no bruits. Extremities: No peripheral edema . Grade 2/4 distal pulses bilaterally. Neuro: Oriented to person, place and time, alert, cooperative, gait coordinated. CARDIOVASCULAR MEDICINE TESTING: Echocardiogram Report [facility] DOS: (more content not included)... Normal [facility] Echo Complete W/ Contraston 10-29-2023 Echo Complete W/ Contrast [facility] [address] [place] [address] Echo Complete W/ Contrast 10/29/23 0852 MR#: [id number] Acct: [id number] Name: RICCO ZARATE Rep #: [id number] : 1945 78 From: Niranjan Vallecillo MD Attending Dr: Dr. Niranjan Vallecillo MD Status: REG CLI Ordering Dr: Niranjan Vallecillo MD Date: 10/29/23 Location: [facility] Sex: M C Admitted: Reason For Study: SOB/Dyspnea Procedure This was a 2D Doppler, Color Flow transthoracic echocardiogram. The study was technically difficult. Contrast injection was performed. Exam performed in department. Left Ventricle Normal size and thickness. The left ventricular ejection fraction is 60 %. Stage 1 diastolic dysfunction. Right Ventricle Normal right ventricle. Atria There is mild biatrial dilatation. Bubble contrast study positive for tiny PFO. Mitral Valve Mild mitral annular calcification. Trivial mitral valve insufficiency. Tricuspid Valve Trivial tricuspid valve insufficiency. Normal pulmonary artery pressure. Aortic Valve Aortic sclerosis, no stenosis. Mild (1+) aortic valve insufficiency. Pulmonic Valve The pulmonic valve is not well visualized. Great Vessels Moderately dilated aortic root. Pericardium/Pleural No pericardial effusion. Medication 22 gauge I.V. with prn adaptor inserted into right arm. Diluted definity 2ml given slow IV push to enhance endocardial definition. Performed a rapid injection of agitated mix of 9 cc saline and 1cc air to assess for atrial septal defect. MMode/2D Measurements Calculations LVIDd: 4.6 cm IVSd: 1.00 cm Ao root diam: 4.2 cm LVIDs: 3.7 cm LVPWd: 0.87 cm LA dimension: 4.3 cm RVDd: 3.6 cm FS: 20.7 % LAV(MOD-bp): 52.3 ml LVAd ap4: 30.8 cm2 SV(MOD-sp4): 55.1 ml LAV(MOD-bp) Indexed: 25.8 ml/m2 LVLd ap4: 8.0 cm LAV(MOD-sp2): 65.7 ml EDV(MOD-sp4): 98.5 ml LAV(MOD-sp4): 41.4 ml EDV(sp4-el): 100.3 ml LVAs ap4: 19.0 cm2 LVLs ap4: 6.9 cm ESV(MOD-sp4): 43.4 ml ESV(sp4-el): 44.1 ml EF(MOD-sp4): 56.0 % EF(sp4-el): 56.0 % SV(sp4-el): 56.2 ml LA A4 area: 17.8 cm2 RA A4 area: 12.5 cm2 TAPSE: 1.6 cm Time Measurements MV dec time: 0.33 sec Doppler Measurements Calculations MV E max gricelda: 42.6 cm/sec Lat Peak E' Gricelda: 9.7 cm/sec Med Peak E' Gricelda: 6.6 cm/sec MV A max gricelda: 76.3 cm/sec E/E' lat: 4.4 E/E' med: 6.4 MV E/A: 0.56 MV V2 max: 78.4 cm/sec MV P1/2t max gricelda: 51.5 cm/sec Ao V2 max: 176.3 cm/sec MV max P.5 mmHg MV P1/2t: 108.0 msec Ao max P.4 mmHg MV V2 mean: 39.0 cm/sec Ao V2 mean: 116.7 cm/sec MV mean P.74 mmHg MV dec slope: 139.6 cm/sec2 Ao mean P.3 mmHg MV V2 VTI: 21.1 cm MVA(P1/2t): 2.0 cm2 Ao V2 VTI: 29.8 cm AV (velocity ratio): 0.60 AI max gricelda: 431.2 cm/sec LV V1 max: 81.6 cm/sec PA V2 max: 135.6 cm/sec AI max P.4 mmHg LV V1 max P.7 mmHg PA max PG (full): 6.4 mmHg LV V1 mean P.4 mmHg PA V2 mean: 79.2 cm/sec AI dec slope: 208.2 cm/sec2 LV V1 mean: 54.9 cm/sec PA mean PG (full): 2.6 mmHg AI P1/2t: 606.6 msec LV V1 VTI: 17.9 cm TR max gricelda: 240.3 cm/sec TR max P.1 mmHg ECHO/Echo Complete W/ Contrast Interpretation Summary The left ventricular ejection fraction is 60 %. Stage 1 diastolic dysfunction. Bubble contrast study positive for tiny PFO. Mild mitral annular calcification. Aortic sclerosis, no stenosis. Mild (1+) aortic valve insufficiency. Moderately dilated aortic root. Ordering Physician: Niranjan Vallecillo Referring Physician: Niranjan Vallecillo Performed By: Atul Zavala [facility] 10/30/23904 Date Niranjan Vallecillo MD CC: Gema Gr; Dr. Niranjan Vallecillo MD Date Dictated: 10/29/23851 Date Transcribed: 10/30/23904 Manager Fine Dining: Signed Normal [facility] 12 Lead EKG performed by [facility] on 10-09-2023 12 Lead EKG performed by [facility] [address] [place] [address] 12 Lead EKG performed by [facility] [place] 10/09/23 0937 MR#: [id number] Acct: [id number] Name: RICCO ZARATE Rep #: [id number] : 1945 78 From: Niranjan Vallecillo MD Attending Dr: Dr. Niranjan Vallecillo MD Status: DEP AMB Ordering Dr: Niranjan Vallecillo MD Date: 10/09/23 [place] [facility] Sex: M C Admitted: [facility] [place]/12 Lead EKG performed by [facility] [place] ECG Report Interpretation -----Sinus Rhythm -consider old anterior infarct. - Nonspecific T-abnormality. ABNORMAL Electronically signed on 05/05/2024 at 10:[address] Niranjan Fitzpatrick Software Version [id number] 05/05/24 1019 Date Niranjan Vallecillo MD CC: Gema Gr Date Dictated: 10/09/23936 Date Transcribed: 10/09/23936 Manager Fine Dining: IGNACIA Signed Normal [facility] CBC-Complete Blood Cnt No Di ffon 10-09-2023 Erythrocyte distribution width (RBC) [Ratio] 14.5 % Normal 11.6-14.6 [facility] Comment on above: Performed By: #### L 500.4100, L100.0500, L500.4050 #### [facility] [address] [place], [address] Hematocrit (Bld) [Volume fraction] 39.2 % Low 40-54 [facility] Comment on above: Performed By: #### L 500.4100, L100.0500, L500.4050 #### [facility] [address] [place], [address] Hemoglobin (Bld) [Mass/Vol] 13.0 g/dL Normal 13.0-16.5 [facility] Comment on above: Performed By: #### L 500.4100, L100.0500, L500.4050 #### [facility] [address] [place], [address] MCH (RBC) [Entitic mass] 28.3 pg Normal 27.0-32.0 [facility] Comment on above: Performed By: #### L 500.4100, L100.0500, L500.4050 #### [facility] [address] [place], [address] MCHC (RBC) [Mass/Vol] 33.2 g/dL Normal 32-36 [facility] Comment on above: Performed By: #### L 500.4100, L100.0500, L500.4050 #### [facility] [address] [place], [address] MCV (RBC) [Entitic vol] 85.4 fL Normal 80-94 [facility] Comment on above: Performed By: #### L 500.4100, L100.0500, L500.4050 #### [facility] [address] [place], [address] Platelet mean volume (Bld) [Entitic vol] 9.7 fL Normal 6.2-12.0 [facility] Comment on above: Performed By: #### L 500.4100, L100.0500, L500.4050 #### [facility] [address] [place], [address] Platelets (Bld) [#/Vol] 215 10*3/uL Normal 150-450 [facility] Comment on above: Performed By: #### L 500.4100, L100.0500, L500.4050 #### [facility] [address] [place], [address] RBC (Bld) [#/Vol] 4.59 10*6/uL Low 4.6-6.2 [facility] Comment on above: Performed By: #### L 500.4100, L100.0500, L500.4050 #### [facility] [address] [place], [address] RDW SD 44.7 fl High 35.1-43.9 [facility] Comment on above: Performed By: #### L 500.4100, L100.0500, L500.4050 #### [facility] [address] [place], [address] WBC (Bld) [#/Vol] 8.2 10*3/uL Normal 4.4-11.0 [facility] Comment on above: Performed By: #### L 500.4100, L100.0500, L500.4050 #### [facility] [address] [place], [address] Cardiology Visit Reporton Cardiology Visit Report [facility] [address] [place] [address] OFFICE VISIT Date of Service: 10/09/23 MR#: [id number] Acct: [id number] Name: RICCO ZARATE Rep #: [id number] : 1945 Provider: Dr. Niranjan Vallecillo MD Age/Sex: 78/M Location: [facility] Status: Signed HPI HPI History of Present Illness Details: This very pleasant gentleman with past medical history significant for nonischemic cardiomyopathy, paroxysmal atrial fibrillation, hypertension, dyslipidemia and frequent PVCs is here for follow-up visit. Per patient, about a week ago he has had an episode where and he felt very lightheaded. Per him, he was out in his yard. After that, he sat down after standing up again, he felt very lightheaded and dizzy. No syncope but he eased himself to the ground. No recurrence since then. He has had no palpitations or shortness of breath or diaphoresis at the time. Denies any chest pains. No palpitations. No orthopnea. No PND. No ankle edema. Intake Vital Signs 08/08/23 11:19 10/09/23 09:12 Height 5 ft 7 in 5 ft 7 in Weight: 203 lb 202 lb BMI 31.8 31.6 BP 132/79 H 120/80 Blood Pressure Location Lt brachial Lt brachial Position Sitting Sitting Respiration 16 16 Pulse 73 82 Pulse Source Auscultation Monitor Intake Visit Reasons: Syncope and Collapse (PCP Gema Gr) French Tutor Required: No Accompanied by: Is patient in pain?: No Allergies No Known Allergies Allergy (Verified 10/09/23 09:17) Medications ???Medication ???Instructions ???Recorded ???Confirmed ???Type apixaban 5 mg tablet (Eliquis) 5 mg PO BID 08/03/23 10/09/23 History metoprolol succinate 25 mg 25 mg PO DAILY 08/03/23 10/09/23 History tablet,extended release 24 hr tamsulosin 0.4 mg capsule 0.4 mg PO QHS 08/03/23 10/09/23 History atorvastatin 40 mg tablet 40 mg PO QHS #30 tabs 08/08/23 10/09/23 Rx furosemide 40 mg tablet 40 mg PO DAILY #60 tabs 08/08/23 10/09/23 Rx mexiletine 200 mg capsule 200 mg PO Q12H #60 caps 08/08/23 10/09/23 Rx spironolactone 25 mg tablet 25 mg PO DAILY #30 tabs 08/08/23 10/09/23 Rx Ejection fraction %: 40 Have you fallen in the past year?: Yes PFSH Medical History Nonischemic cardiomyopathy Chronic systolic (congestive) heart failure Hypertension Dyslipidemia Coronary artery disease PAC (premature atrial contraction) Paroxysmal atrial fibrillation SOB (shortness of breath) PVC (premature ventricular contraction) NSVT (nonsustained ventricular tachycardia) Cardiomyopathy CHF (congestive heart failure) Insomnia Weakness Fatigue Pain in both knees Bilateral edema of lower extremity Surgical History Hx of cardiac catheterization ( 03/07/23) Hx of lithotripsy Hx of inguinal hernia repair Hx of arthroscopy of right knee Family History Father , 82 No problems noted. Mother Cancer Brother CHF (congestive heart failure) Social History Smoking Status: Never smoker alcohol intake: never substance use type: does not use caffeine: Yes Type: carbonated beverages and coffee ROS Const Const: Positive for weakness and daytime sleepiness (sometimes); Negative for fatigue, headache(s), frequent falls, difficulty sleeping or excessive sweating Eyes Eyes: Positive for change in vision; Negative for loss of peripheral vision, transient loss of vision, blurry vision, double vision or tunnel vision ENT ENT: Positive for dizziness and balance problems; Negative for headache(s) or Nosebleed/epistaxis Cardio Chest Pain: No Palpitations: No Edema: None Muscle aches with walking: None Resp Respiratory: Negative for SOB with activity, SOB at rest, SOB orthopnea SOB lying down, Cough or paroxysmal nocturnal dyspnea GI GI: Negative nausea, vomiting, heartburn or black,tarry stools : Negative for hematuria Musc Musc: Positive for muscle weakness, joint pain (right leg) and balance problems; Negative for muscle aches/ myalgia Skin Skin: Negative non-healing lesions, rash or unusual bruising Neuro Neuro: Positive for dizziness, lightheadedness, near syncope and weakness; Negative for syncope, frequent falls, headache(s), blurry vision, double vision or lack of coordination Carlyle Hematologic/Lymphatic : Negative for easy bleeding or easy bruising Endo Endo: Negative for fatigue, excessive sweating or increased thirst/drinking Psych Psych: Negative for anxiety or depression Allergy Allergy/Immunology: Negative for hives and Negative for rash Cardiology Exam Const Appearance: comfortable and no acute distress Nutritional Appearance: well nour (more content not included)... Normal [facility] Comprehensive Metabolic Prof ilon 10-09-2023 Albumin [Mass/Vol] 3.5 g/dL Normal 3.2-5.0 [facility] Comment on above: Performed By: #### L 500.4100, L100.0500, L500.4050 #### [facility] [address] [place], [address] Albumin/Globulin [Mass ratio] 0.9 {ratio} Normal 0.9-2.4 [facility] Comment on above: Performed By: #### L 500.4100, L100.0500, L500.4050 #### [facility] [address] [place], [address] ALK P 105 U/L Normal 45-117 [facility] Comment on above: Performed By: #### L 500.4100, L100.0500, L500.4050 #### [facility] [address] [place], [address] ALT [Catalytic activity/Vol] 19 U/L Normal 16-61 [facility] Comment on above: Performed By: #### L 500.4100, L100.0500, L500.4050 #### [facility] [address] [place], [address] AST [Catalytic activity/Vol] 9 U/L Low 15-37 [facility] Comment on above: Performed By: #### L 500.4100, L100.0500, L500.4050 #### [facility] [address] [place], [address] Bilirubin [Mass/Vol] 0.50 mg/dL Normal 0.20-1.[address] [facility] Comment on above: Result Comment: For patients on eltrombopag therapy, use of Dimension [place] TBIL is not recommended. Performed By: #### L 500.4100, L100.0500, L500.4050 #### [facility] [address] [place], [address] BUN/CRE 16.7 RATIO Normal 10-20 [facility] Comment on above: Performed By: #### L 500.4100, L100.0500, L500.4050 #### [facility] [address] [place], [address] CA,Total 9.6 mg/dL Normal 8.5-10.1 [facility] Comment on above: Performed By: #### L 500.4100, L100.0500, L500.4050 #### [facility] [address] [place], [address] Chloride [Moles/Vol] 106 mmol/L Normal 98-[address] [facility] Comment on above: Performed By: #### L 500.4100, L100.0500, L500.4050 #### [facility] [address] [place], [address] CO2 [Moles/Vol] 28.0 mmol/L Normal 21.0-32.0 [facility] Comment on above: Performed By: #### L 500.4100, L100.0500, L500.4050 #### [facility] [address] [place], [address] Creatinine [Mass/Vol] 1.26 mg/dL Normal 0.70-1.30 [facility] Comment on above: Result Comment: The validity of the calculated GFR GFRAA in patients over 70 years has not been determined. Clinical correlation is essential. Performed By: #### L 500.4100, L100.0500, L500.4050 #### [facility] [address] [place], [address] EST GFR - AA 71 mL/min Normal >60 [facility] Comment on above: Result Comment: Afri can Swazi GFR Calc Performed By: #### L 500.4100, L100.0500, L500.4050 #### [facility] [address] [place], [address] GAP 5 Normal 5-15 [facility] Comment on above: Performed By: #### L 500.4100, L100.0500, L500.4050 #### [facility] [address] [place], [address] GFR/1.73 sq M.predicted among non-blacks MDRD (S/P/Bld) [Vol rate/Area] 59 mL/min/{1.73_m2} Low >60 [facility] Comment on above: Result Comment: Non- GFR Calc Performed By: #### L 500.4100, L100.0500, L500.4050 #### [facility] [address] [place], [address] Globulin (S) [Mass/Vol] 3.9 g/dL Normal 2.2-4.2 [facility] Comment on above: Performed By: #### L 500.4100, L100.0500, L500.4050 #### [facility] [address] [place], [address] Glucose [Mass/Vol] 128 mg/dL High 74-106 [facility] Comment on above: Result Comment: Fast ing Glucose result greater than or equal to 126 mg/dL suggests DIABETES MELLITUS per A.D.A. criteria. Performed By: #### L 500.4100, L100.0500, L500.4050 #### [facility] [address] [place], [address] Potassium [Moles/Vol] 4.1 mmol/L Normal 3.5-5.1 [facility] Comment on above: Performed By: #### L 500.4100, L100.0500, L500.4050 #### [facility] [address] [place], [address] Sodium [Moles/Vol] 139 mmol/L Normal 136-145 [facility] Comment on above: Performed By: #### L 500.4100, L100.0500, L500.4050 #### [facility] [address] [place], [address] T PROT 7.4 g/dL Normal 6.4-8.2 [facility] Comment on above: Performed By: #### L 500.4100, L100.0500, L500.4050 #### [facility] [address] [place], [address] Urea nitrogen [Mass/Vol] 21 mg/dL High 7-18 [facility] Comment on above: Performed By: #### L 500.4100, L100.0500, L500.4050 #### [facility] [address] [place], [address] Lipid Profileon 10-09-2023 Cholesterol [Mass/Vol] 105 mg/dL Normal 200 [facility] Comment on above: Result Comment: <200 mg/dL Desirable 200-240 mg/dL Borderline >240 mg/dL High Risk Performed By: #### L 500.4100, L100.0500, L500.4050 #### [facility] [address] [place], [address] Cholesterol in HDL [Mass/Vol] 46 mg/dL Normal [facility] Comment on above: Result Comment: The drugs N-Acetylcysteine and Metamizole may falsely depress this assay. Reference Range HDL <40 mg/dL Low HDL Cholesterol HDL >or= 60 mg/dL High HDL Cholesterol Performed By: #### L 500.4100, L100.0500, L500.4050 #### [facility] [address] [place], [address] Cholesterol in LDL [Mass/Vol] 34 mg/dL Normal 0-130 [facility] Comment on above: Performed By: #### L 500.4100, L100.0500, L500.4050 #### [facility] [address] [place], [address] Cholesterol in VLDL [Mass/Vol] 25 mg/dL Normal 5-40 [facility] Comment on above: Performed By: #### L 500.4100, L100.0500, L500.4050 #### [facility] [address] [place], [address] Triglyceride [Mass/Vol] 125 mg/dL Normal [facility] Comment on above: Result Comment: The drugs N-Acetylcysteine and Metamizole may falsely depress this assay. Serum Triglycerides Reference Interval Normal <150 mg/dL Borderline high 150 - 199 mg/dL High 200 - 499 mg/dL Very High > or = 500 mg/dL Performed By: #### L 500.4100, L100.0500, L500.4050 #### [facility] [address] [place], [address] CNPKathy 10-03-2023 CNPN Telephone (CARMOB) RICCO ZARATE ([id number]) 1945 M DEF Date Time Provider Department 10/03/23 EMILEE PATTERSON During your visit today, we recorded the following information about you: Akosua Barnett 10/03/2023 10:03 AM Signed Received a referral from [facility] the office of Dr. Vallecillo. Patient is referred for Paroxysmal Afib, other ventricular tachycardia, and SOB. Akosua Barnett 10/08/2023 1:16 PM Signed New Patient Referral Requesting- Dr. Criselda zarate : 1945 Reason- Afib ablation d/t unable to afford medications Records Scanned In Servando Melton RN 10/08/2023 2:57 PM Signed Reviewed with provider. Would you please offer Mr. Zarate an appointment with Dr. Patterson on Sunday01/23/2024 at 1:30 pm? Thank you! Servando Melton RN October 08, 2023 2:57 PM Myra Abarca 10/08/2023 4:03 PM Signed Waiting on referral. Myra Moseley 10/17/2023 9:56 AM Signed Scheduled and confirmed with patients Myra Abarca Allergies As of Date: 10/03/2023 (Not on File) Date Reviewed: Never Reviewed Reason for Visit: Appointment [186] Problem List As Of Date: 10/03/2023 (None) Encounter Status:Closed by MYRA ABARCA on 10/08/23 [facility] Katerin 09-05-2023 FangxinmeiN Telephone (CARMOB) RICCO ZARATE ([id number]) 1945 Date Time Provider Department 09/05/23 MARCIA QUINTERO During your visit today, we recorded the following information about you: Allergies As of Date: 09/05/2023 (Not on File) Date Reviewed: Never Reviewed Problem List As Of Date: 09/05/2023 (None) Encounter Status:Closed by MARCIA QUINTERO on 09/05/23 [facility] 12 Lead EKG performed by [facility] on 08-08-2023 12 Lead EKG performed by [address] [address] 12 Lead EKG performed by [facility] 08/08/23 1128 MR#: [id number] Acct: [id number] Name: RICCO ZARATE Rep #: [id number] : 1945 From: Niranjan Vallecillo MD Attending Dr: Dr. Niranjan Vallecillo MD Status: DEP AMB Ordering Dr: Niranjan Vallecillo MD Date: 08/08/23 [place] [facility] Sex: M C Admitted: BMS/12 Lead EKG performed by [facility] ECG Report Interpretation -----Sinus Rhythm - Diffuse nonspecific T-abnormality. ABNORMAL Electronically signed on 08/09/2023 at 12:[address] Niranjan Vallecillo [employer] Version 8610 08/09/23 1237 Date Niranjan Vallecillo MD CC: Gema Gr Date Dictated: 08/08/231127 Date Transcribed: 08/08/231127 Manager [employer]: IGNACIA Signed Normal [facility] Cardiology Visit Reporton Cardiology Visit Report [facility] [address] [place] [address] OFFICE VISIT Date of Service: 08/08/23 MR#: [id number] Acct: [id number] Name: RICCO ZARATE Rep #: [id number] : 1945 Provider: Dr. Niranjan Vallecillo MD Age/Sex: 78/M Location: [facility] Status: Signed HPI HPI History of Present Illness Details: This gentleman with past medical history significant for untreated hypertension was diagnosed with nonischemic cardiomyopathy last February. He was subsequently started on medications. They do not have any prescription coverage and have been having a problem paying for his medications. They are here to establish cardiac care. The predominant concern is possibly switching him to medications that they could afford. Patient denies any chest pains or shortness of breath either at rest or with exertion. Denies any palpitations. No lightheadedness or dizziness. No syncope or presyncope. Denies any ankle edema. He has been on apixaban and tolerating it well without any abnormal bleeding issues. Intake Vital Signs 08/08/23 11:19 Height 5 ft 7 in Weight: 203 lb BMI 31.8 BP 132/79 H Blood Pressure Location Lt brachial Position Sitting Respiration 16 Pulse 73 Pulse Source Auscultation Intake Visit Reasons: EST/2ND OPINION (SELF) French Tutor Required: No Accompanied by: and son Is patient in pain?: No Allergies No Known Allergies Allergy (Unverified 08/08/23 11:05) Medications apixaban 5 mg tablet (Eliquis) 5 mg PO BID 08/03/23 [History Confirmed 08/08/23] atorvastatin 40 mg tablet 40 mg PO QHS 08/03/23 [History Confirmed 08/08/23] metoprolol succinate 25 mg tablet,extended release 24 hr 25 mg PO DAILY 08/03/23 [History Confirmed 08/08/23] mexiletine 200 mg capsule 200 mg PO Q12H 08/03/23 [History Confirmed 08/08/23] sacubitril 24 mg-valsartan 26 mg tablet (Entresto) 1 tab PO BID 08/03/23 [History Confirmed 08/08/23] spironolactone 25 mg tablet 25 mg PO DAILY 08/03/23 [History Confirmed 08/08/23] tamsulosin 0.4 mg capsule 0.4 mg PO QHS 08/03/23 [History Confirmed 08/08/23] furosemide 40 mg tablet 40 mg PO DAILY 08/08/23 [History Confirmed 08/08/23] Ejection fraction %: 40 [facility] Medical History (Updated 08/08/23 @ 12:[address] Niranjan Vallecillo MD) Bilateral edema of lower extremity Cardiomyopathy CHF (congestive heart failure) Fatigue Insomnia NSVT (nonsustained ventricular tachycardia) PAC (premature atrial contraction) Pain in both knees Paroxysmal atrial fibrillation PVC (premature ventricular contraction) SOB (shortness of breath) Weakness Surgical History Hx of arthroscopy of right knee Hx of cardiac catheterization ( 03/07/23) Hx of inguinal hernia repair Hx of lithotripsy Family History (Updated 08/08/23 @ 11:09 by Marcia Greene) Father , 82 No problems noted. Mother Cancer Brother CHF (congestive heart failure) Social History (Updated 08/08/23 @ 11:08 by Marcia Greene) Smoking Status: Never smoker alcohol intake: never substance use type: does not use caffeine: Yes Type: carbonated beverages and coffee ROS Const Const: Positive for daytime sleepiness; Negative for fatigue, weakness, headache(s), frequent falls, difficulty sleeping or excessive sweating Eyes Eyes: Negative for loss of peripheral vision, transient loss of vision, blurry vision, double vision or tunnel vision ENT ENT: Negative for headache(s), dizziness, Nosebleed/epistaxis or balance problems Cardio Chest Pain: No Palpitations: No Edema: Bilateral Muscle aches with walking: None Resp Respiratory: Positive for SOB with activity; Negative for SOB at rest, SOB orthopnea SOB lying down, Cough or paroxysmal nocturnal dyspnea GI GI: Positive for heartburn (occ); Negative nausea, vomiting or black,tarry stools : Negative for hematuria Musc Musc: Positive for joint pain; Negative for muscle aches/ myalgia, muscle weakness or balance problems Skin Skin: Negative non-healing lesions, rash or unusual bruising Neuro Neuro: Positive for lightheadedness; Negative for dizziness, near syncope, syncope, frequent falls, headache(s), weakness, blurry vision, double vision or lack of coordination Carlyle Hematologic/Lymphatic : Negative for easy bleeding or easy bruising Endo Endo: Negative for fatigue, excessive sweating or increased thirst/drinking Psych Psych: Negative for anxiety or depression Allergy Allergy/Immunology: Negative for hives and Negative for rash Cardiology Exam Const Appearance: comfortable and no acute distress Nutritional Appearance: well nourished Neck Neck: no JVD Carotids: Negative bruit Chest Auscultation: Bilateral: Clear to Auscultation Cardio Rate: regular rate Rhythm: re (more content not included)... Normal [facility] BMP with eGFRon 05-07-2023 AGE 78 years Normal [facility] Comment on above: Performed By: #### 2 [id number] #### [facility],[address] [place] [address] Anion gap [Moles/Vol] 9 mmol/L Abnormal 10 - 2 0 mmol/L [facility] Comment on above: Performed By: #### 2 64897 #### [facility],[address] [place] [address] BMP with eGFR Normal [facility] Comment on above: Result Comment: BASI C METABOLIC PANEL Performed By: #### 2 53559 #### [facility],[address] [place] [address] Calcium [Mass/Vol] 9.3 mg/dL Normal 8.5 - 10. 1 mg/dL [facility] Comment on above: Performed By: #### 2 51524 #### [facility],[address] [place] [address] Chloride [Moles/Vol] 102 mmol/L Normal 98 - 10 7 mmol/L [facility] Comment on above: Performed By: #### 2 12350 #### [facility],[address] [place] [address] CO2 [Moles/Vol] 33.2 mmol/L Abnormal 21.0 - 32.0 mmol/L [facility] Comment on above: Performed By: #### 2 19096 #### [facility],[address] [place], [place] [address] Creatinine [Mass/Vol] 1.08 mg/dL Normal 0.70 - 1.30 mg/dL [facility] Comment on above: Performed By: #### 2 69364 #### [facility],[address] [place] [address] GFR/1.73 sq M.predicted among non-blacks MDRD (S/P/Bld) [Vol rate/Area] mL/min/{1.73_m2} Normal 60 - 999 [facility] Comment on above: Performed By: #### 2 61481 #### [facility],[address] [place] [address] Result Comment: ACCO RDING TO THE NATIONAL KIDNEY DISEASE EDUCATION PROGRAM(NKDE), A NORMAL eGFR IS A VALUE GREATER THAN OR EQUAL TO 60 ML/MIN/1.73 SQ METERS. CHRONIC KIDNEY DISEASE: <60mL/MIN/1.73 SQ METERS KIDNEY FAILURE: <15mL/MIN/1.73 SQ METERS THIS TEST SHOULD ONLY BE USED FOR PATIENTS 18 YEARS OF AGE AND OLDER. Glucose [Mass/Vol] 139 mg/dL Abnormal 74 - 106 mg/dL [facility] Comment on above: Performed By: #### 2 66107 #### [facility],[address] [place], [place] [id number] Potassium [Moles/Vol] 4.1 mmol/L Normal 3.5 - 5.1 mmol/L [facility] Comment on above: Performed By: #### 2 44438 #### [facility],[address] [place] [address] Sodium [Moles/Vol] 140 mmol/L Normal 136 - 145 mmol/L [facility] Comment on above: Performed By: #### 2 15332 #### [facility],[address] [place] [address] Urea nitrogen [Mass/Vol] 13 mg/dL Normal 7 - 18 mg/dL [facility] Comment on above: Performed By: #### 2 73965 #### [facility],[address] [place], [place] [id number] Laboratory - Chemistry and C hemistry - challengeon 05-07-2023 GFR/1.73 sq M.predicted among blacks MDRD (S/P/Bld) [Vol rate/Area] mL/min/{1.73_m2} Normal 60 - 999 {ML/MINUTE} [employer]. Work Phone: GFR/1.73 sq M.predicted MDRD (S/P/Bld) [Vol rate/Area] mL/min/{1.73_m2} Normal 60 - 999 {ML/MINUTE} [employer]. Work Phone: No Panel Informationon 05-07 AGE 78 {years} Normal [employer] [facility] [address] [employer]. Work Phone: BMP with eGFR Normal [employer]. Work Phone: LYME EARLY (SIGNS/SYMP <=30 DAYS) [CCL]on 04-16-2023 RESULT CRITICAL? NO Normal [facility] Comment on above: Performed By: #### 2 99259 #### [place] [id number] Lyme IgG IgM Ab Negative Normal Negative [facility] Comment on above: Result Comment: Rece nt infection with B. burgdorferi sensu lato cannot be excluded if the specimen collected within four weeks after the onset of signs and symptoms or within six weeks after a known tick exposure. Clinical and epidemiological correlation is required. [facility] [employer] [address] [place] [address] Luke Khoury III, M.D. [id number] Performed By: #### 2 91586 #### [place] [id number] No Panel Informationon 04-13 Lyme IgG IgM Ab Negative Normal [facility], [facility], [facility] RESULT CRITICAL? NO Normal [facility], [facility]. ANKLE COMPLETE RTon 04-11-19 24 ANKLE COMPLETE RT [address] [address] Patient: RICCO ZARATE Phone#: : 1945 Age: 78 Gender: M Pt. Type: Out Account: [id number] Location: 010 Ordering: SHAHLA BOWLES Exam Date: 04/11/2023/10:48 Family Phys: Charge Code: [id number] Physician: Christian Order #: [id number] Dose#: PROCEDURE: X-RAY ANKLE COMPLETE RT MIN 3 VIEWS COMPARISON: None. INDICATIONS: Chronic pain FINDINGS: BONES: Small calcaneal spur measuring 0.6 cm. Enthesopathy at the Achilles attachment. Degenerative spurring of the distal talus. Talar dome is intact. Joint space is maintained. No acute fracture or dislocation. SOFT TISSUES: Soft tissue swelling at the level of the ankle. EFFUSION: None visible. OTHER: Negative. CONCLUSION: 1. Soft tissue swelling 2. No acute osseous abnormality Dictated by: Urmila Mazariegos MD on 04/11/2023 at 12:47 Approved by: Urmila Mazariegos MD on 04/11/2023 at 12:51 Normal [facility] KNEE COMPLETE LT MIN 4 VIEWS on 04-11-2023 KNEE COMPLETE LT MIN [address] [address] Patient: RICCO ZARATE Phone#: : 1945 Age: 78 Gender: M Pt. Type: Out Account: [id number] Location: 010 Ordering: SHAHLA BOWLES Exam Date: 04/11/2023/10:37 Family Phys: Charge Code: [id number] Physician: Christian Order #: [id number] Dose#: PROCEDURE: X-RAY KNEE LT COMPLETE 4 VIEWS COMPARISON: None. INDICATIONS: Bilateral knee pain FINDINGS: BONES: Mild medial compartment joint space loss. Mild spurring of the undersurface of the patella. SOFT TISSUES: Negative. No visible soft tissue swelling. EFFUSION: Small suprapatellar joint effusion. OTHER: Negative. CONCLUSION: 1. Mild medial compartment joint space loss 2. Small suprapatellar joint effusion Dictated by: Urmila Mazariegos MD on 04/11/2023 at 12:59 Approved by: Urmila Mazariegos MD on 04/11/2023 at 13:00 Normal [facility] KNEE COMPLETE RT MIN 4 VIEWS on 04-11-2023 KNEE COMPLETE RT MIN [address] [address] Patient: RICCO ZARATE Phone#: : 1945 Age: 78 Gender: M Pt. Type: Out Account: [id number] Location: [facility] Ordering: SHAHLA BOWLES Exam Date: 04/11/2023/10:28 Family Phys: Charge Code: [id number] Physician: Christian Order #: [id number] Dose#: PROCEDURE: X-RAY KNEE RT COMPLETE 4 VIEWS COMPARISON: None. INDICATIONS: Bilateral knee pain FINDINGS: BONES: There is moderate medial compartment joint space loss. Mild spurring of the tibial plateau and undersurface of the patella. SOFT TISSUES: Calcifications in the lateral compartment, most consistent with chondrocalcinosis. Serpiginous opacities in the medial soft tissues most consistent varicosities. EFFUSION: None visible. OTHER: Negative. CONCLUSION: 1. Medial compartment joint space loss 2. Chondrocalcinosis Dictated by: Urmila Mazariegos MD on 04/11/2023 at 12:51 Approved by: Urmila Mazariegos MD on 04/11/2023 at 12:59 Normal [facility] BMP with eGFRon 04-04-2023 AGE 78 years Normal [facility] Comment on above: Performed By: #### 2 [id number] #### [facility],[address] [place] [address] Anion gap [Moles/Vol] 14 mmol/L Normal 10 - 2 0 mmol/L [facility] Comment on above: Performed By: #### 2 53742 #### [facility],[address] [place] [address]9620 BMP with eGFR Normal [facility] Comment on above: Result Comment: BASI C METABOLIC PANEL Performed By: #### 2 74911 #### [facility],[address] [place] [address]99 Calcium [Mass/Vol] 9.8 mg/dL Normal 8.5 - 10. 1 mg/dL [facility] Comment on above: Performed By: #### 2 07838 #### [facility],[address] [place] [address] 62159 Chloride [Moles/Vol] 103 mmol/L Normal 98 - 10 7 mmol/L [facility] Comment on above: Performed By: #### 2 32850 #### [facility],[address] [place] [address]694 CO2 [Moles/Vol] 28.7 mmol/L Normal 21.0 - 32.0 mmol/L [facility] Comment on above: Performed By: #### 2 17497 #### [facility],[address] [place] [address] 97778 Creatinine [Mass/Vol] 1.29 mg/dL Normal 0.70 - 1.30 mg/dL [facility] Comment on above: Performed By: #### 2 27173 #### [facility],[address] [place] [address] 23948 eGFR 54 ML/MINUTE Low 60 - 999 [facility] Comment on above: Performed By: #### 2 51426 #### [facility],[address] [place] [address] 09076 GFR/1.73 sq M.predicted among non-blacks MDRD (S/P/Bld) [Vol rate/Area] mL/min/{1.73_m2} Normal 60 - 999 [facility] Comment on above: Result Comment: ACCO RDING TO THE NATIONAL KIDNEY DISEASE EDUCATION PROGRAM(NKDE), A NORMAL eGFR IS A VALUE GREATER THAN OR EQUAL TO 60 ML/MIN/1.73 SQ METERS. CHRONIC KIDNEY DISEASE: <60mL/MIN/1.73 SQ METERS KIDNEY FAILURE: <15mL/MIN/1.73 SQ METERS THIS TEST SHOULD ONLY BE USED FOR PATIENTS 18 YEARS OF AGE AND OLDER. Performed By: #### 2 [id number] #### [facility],[address] [place] [address] 34470 Glucose [Mass/Vol] 125 mg/dL Abnormal 74 - 106 mg/dL [facility] Comment on above: Performed By: #### 2 87196 #### [facility],[address] [place] [address] 29700 Potassium [Moles/Vol] 4.3 mmol/L Normal 3.5 - 5.1 mmol/L [facility] Comment on above: Performed By: #### 2 40906 #### [facility],[address] [place] [address] 54402 Sodium [Moles/Vol] 141 mmol/L Normal 136 - 145 mmol/L [facility] Comment on above: Performed By: #### 2 75317 #### [facility],[address] [place] [address] 98797 Urea nitrogen [Mass/Vol] 20 mg/dL Abnormal 7 - 18 mg/dL [facility] Comment on above: Performed By: #### 2 45707 #### [facility],[address] [place] [address]952 Laboratory - Chemistry and C hemistry - challengeon 04-04-2023 GFR/1.73 sq M.predicted among blacks MDRD (S/P/Bld) [Vol rate/Area] mL/min/{1.73_m2} Normal 60 - 999 {ML/MINUTE} [facility] Center[facility]. Work Phone: GFR/1.73 sq M.predicted MDRD (S/P/Bld) [Vol rate/Area] 54 {ML/MINUTE} Abnormal 60 - 999 {ML/MINUTE} [facility]; [place] [employer] [facility] [employer] [facility]. Work Phone: No Panel Informationon 04-04 AGE 78 {years} Normal [facility] [employer] [facility]. Work Phone: BMP with eGFR Normal [facility]; [facility] [employer] [facility] Work Phone: BMP with eGFRon 03-16-2023 AGE 78 years Normal [facility] Comment on above: Performed By: #### 2 04490 #### [facility],[address] [place] [address] Anion gap [Moles/Vol] 12 mmol/L Normal 10 - 2 0 mmol/L [facility] Comment on above: Performed By: #### 2 99250 #### [facility],[address] [place] [address] BMP with eGFR Normal [facility] Comment on above: Result Comment: BASI C METABOLIC PANEL Performed By: #### 2 64444 #### [facility],[address] [place] [address] 05816 Calcium [Mass/Vol] 9.4 mg/dL Normal 8.5 - 10. 1 mg/dL [facility] Comment on above: Performed By: #### 2 64367 #### [facility],[address] [place] [address] 80259 Chloride [Moles/Vol] 101 mmol/L Normal 98 - 10 7 mmol/L [facility] Comment on above: Performed By: #### 2 34947 #### [facility],[address] [place] [address] CO2 [Moles/Vol] 28.7 mmol/L Normal 21.0 - 32.0 mmol/L [facility] Comment on above: Performed By: #### 2 73735 #### [facility],[address] [place] [address] Creatinine [Mass/Vol] 1.39 mg/dL Abnormal 0.70 - 1.30 mg/dL [facility] Comment on above: Performed By: #### 2 05317 #### [facility],[address] [place] [address] eGFR 50 ML/MINUTE Low 60 - 999 [facility] Comment on above: Performed By: #### 2 49580 #### [facility],[address] [place] [address] eGFR(AA) 60 ML/MINUTE Normal 60 - 999 [facility] Comment on above: Result Comment: ACCO RDING TO THE NATIONAL KIDNEY DISEASE EDUCATION PROGRAM(NKDE), A NORMAL eGFR IS A VALUE GREATER THAN OR EQUAL TO 60 ML/MIN/1.73 SQ METERS. CHRONIC KIDNEY DISEASE: <60mL/MIN/1.73 SQ METERS KIDNEY FAILURE: <15mL/MIN/1.73 SQ METERS THIS TEST SHOULD ONLY BE USED FOR PATIENTS 18 YEARS OF AGE AND OLDER. Performed By: #### 2 83593 #### [facility],[address] [place] [address] Glucose [Mass/Vol] 126 mg/dL Abnormal 74 - 106 mg/dL [facility] Comment on above: Performed By: #### 2 25510 #### [facility],[address] [place] [address] Potassium [Moles/Vol] 3.9 mmol/L Normal 3.5 - 5.1 mmol/L [facility] Comment on above: Performed By: #### 2 45525 #### [facility],[address] [place] [address] Sodium [Moles/Vol] 138 mmol/L Normal 136 - 145 mmol/L [facility] Comment on above: Performed By: #### 2 09359 #### [facility],[address] [place] [address] 17681 Urea nitrogen [Mass/Vol] 21 mg/dL Abnormal 7 - 18 mg/dL [facility] Comment on above: Performed By: #### 2 24324 #### [facility],[address] [place] [address] 77130 Laboratory - Chemistry and C hemistry - challengeon 03-16-2023 GFR/1.73 sq M.predicted among blacks MDRD (S/P/Bld) [Vol rate/Area] 60 {ML/MINUTE} Normal 60 - 999 {ML/MINUTE} [employer] [facility]; [employer] [facility] [employer] [facility]. Work Phone: GFR/1.73 sq M.predicted MDRD (S/P/Bld) [Vol rate/Area] 50 {ML/MINUTE} Abnormal 60 - 999 {ML/MINUTE} [employer] Work Phone: No Panel Informationon 03-16 AGE 78 {years} Normal [employer]; [employer]. Work Phone: BMP with eGFR Normal [employer] [facility]; [employer] Work Phone: .Auto Diffon 03-07-2023 Basophil, Absolute 0.0 10 3/mcL Normal 0.0-0.3 [facility] ([place]) Comment on above: Performed By: #### G FR, ANEU, MG, ADIFF, CBC, BMP #### [address] [address] Basophils/100 WBC (Bld) 0.4 % Normal 0.0-2.5 [facility] ([place]) Comment on above: Performed By: #### G FR, ANEU, MG, ADIFF, CBC, BMP #### [address] [address] Eosinophil, Absolute 0.3 10 3/mcL Normal 0.0-0.7 [facility] ([place] Comment on above: Performed By: #### G FR, ANEU, MG, ADIFF, CBC, BMP #### [address] [address] Eosinophils/100 WBC (Bld) 4.1 % Normal 0.0-6.0 [facility] ([place] Comment on above: Performed By: #### G FR, ANEU, MG, ADIFF, CBC, BMP #### [address] [address] Lymphocyte, Absolute 1.1 10 3/mcL Normal 0.9-4.3 [facility] ([place] Comment on above: Performed By: #### G FR, ANEU, MG, ADIFF, CBC, BMP #### [address] [address] Lymphocytes/100 WBC (Bld) 15.3 % Low 20.0-40.0 [facility] ([place] Comment on above: Performed By: #### G FR, ANEU, MG, ADIFF, CBC, BMP #### [address] [address] Monocyte, Absolute 0.9 10 3/mcL Normal 0.1-1.4 [facility] ([place] Comment on above: Performed By: #### G FR, ANEU, MG, ADIFF, CBC, BMP #### [address] [address] Monocytes/100 WBC (Bld) 12.6 % Normal 2.0-13.0 [facility] ([place] Comment on above: Performed By: #### G FR, ANEU, MG, ADIFF, CBC, BMP #### [address] [address] Neutrophils/100 WBC (Bld) 67.6 % Normal 50.0-75.0 [facility] ([place] Comment on above: Performed By: #### G FR, ANEU, MG, ADIFF, CBC, BMP #### [address] [address] .GFRon 03-07-2023 GFR >60 Normal [facility] ([place]) Comment on above: Result Comment: GFR Population mean for , Non- Americans Ages 20-29 = 116 mL/min/1.73 sq.m. Ages 30-39 = 107 mL/min/1.73 sq.m. Ages 40-49 = 99 mL/min/1.73 sq.m. Ages 50-59 = 93 mL/min/1.73 sq.m. Ages 60-69 = 85 mL/min/1.73 sq.m. Ages 70+ = 75 mL/min/1.73 sq.m. Chronic Kidney Disease: Less than 60 mL/min/1.73 square meters End Stage Renal Disease: Less than 15 mL/min/1.73 square meters Performed By: #### G FR, ANEU, MG, ADIFF, CBC, BMP #### [address] [address] GFR Non- >60 Normal [facility] ([place] Comment on above: Result Comment: GFR Population mean for , Non- Americans Ages 20-29 = 116 mL/min/1.73 sq.m. Ages 30-39 = 107 mL/min/1.73 sq.m. Ages 40-49 = 99 mL/min/1.73 sq.m. Ages 50-59 = 93 mL/min/1.73 sq.m. Ages 60-69 = 85 mL/min/1.73 sq.m. Ages 70+ = 75 mL/min/1.73 sq.m. Chronic Kidney Disease: Less than 60 mL/min/1.73 square meters End Stage Renal Disease: Less than 15 mL/min/1.73 square meters Performed By: #### G FR, ANEU, MG, ADIFF, CBC, BMP #### [address] [address] .NEUABSon 03-07-2023 Neutrophil, Absolute 4.8 10 3/mcL Normal 2.3-8.1 [facility] ([place] Comment on above: Performed By: #### G FR, ANEU, MG, ADIFF, CBC, BMP #### [address] [address] [facility] 03-07-2023 BUN/Creatinine Ratio 23.7 ratio High 10.0-22.0 [facility] ([place] Comment on above: Performed By: #### G FR, ANEU, MG, ADIFF, CBC, BMP #### [address] [address] Calcium [Mass/Vol] 9.2 mg/dL Normal 8.7-10.4 [facility], [facility] ([place] Comment on above: Performed By: #### G FR, ANEU, MG, ADIFF, CBC, BMP #### [address] [address] Chloride [Moles/Vol] 104 mmol/L Normal 98-110 [facility] ([place] Comment on above: Performed By: #### G FR, ANEU, MG, ADIFF, CBC, BMP #### [address] [address] CO2 [Moles/Vol] 32 mmol/L Normal 22-32 [facility] ([place] Comment on above: Performed By: #### G FR, ANEU, MG, ADIFF, CBC, BMP #### [address] [address] Creatinine [Mass/Vol] 0.93 mg/dL Normal 0.60-1.40 [facility] ([place]) Comment on above: Performed By: #### G FR, ANEU, MG, ADIFF, CBC, BMP #### [address] [address] Electrolyte Balance 6.0 mEq/L Normal 4.0-15.0 [facility] ([place]) Comment on above: Performed By: #### G FR, ANEU, MG, ADIFF, CBC, BMP #### [address] [address] Glucose [Mass/Vol] 126 mg/dL High 82-115 [facility], [facility] ([place] Comment on above: Performed By: #### G FR, ANEU, MG, ADIFF, CBC, BMP #### [address] [address] Potassium [Moles/Vol] 4.0 mmol/L Normal 3.5-5.0 [facility] ([place]) Comment on above: Performed By: #### G FR, ANEU, MG, ADIFF, CBC, BMP #### [place] [address] Sodium [Moles/Vol] 142 mmol/L Normal 136-145 [facility], [facility] ([place] Comment on above: Performed By: #### G FR, ANEU, MG, ADIFF, CBC, BMP #### [place] [address] Urea nitrogen [Mass/Vol] 22.0 mg/dL Normal 8.0-22.0 [facility] ([place] Comment on above: Performed By: #### G FR, ANEU, MG, ADIFF, CBC, BMP #### [place] [address] CBCon 03-07-2023 Erythrocyte distribution width (RBC) [Ratio] 14.8 % Normal 11.5-15.5 [facility] ([place] Comment on above: Performed By: #### G FR, ANEU, MG, ADIFF, CBC, BMP #### [place] [address] Hematocrit (Bld) [Volume fraction] 40.2 % Normal 40.0-52.0 [facility] ([place] Comment on above: Performed By: #### G FR, ANEU, MG, ADIFF, CBC, BMP #### [place] [address] Hgb 13.3 G/dL Normal 13.0-17.5 [facility] ([place] Comment on above: Performed By: #### G FR, ANEU, MG, ADIFF, CBC, BMP #### [place] [address] MCH (RBC) [Entitic mass] 28.9 pg Normal 27.0-33.0 [facility] ([place] Comment on above: Performed By: #### G FR, ANEU, MG, ADIFF, CBC, BMP #### [place] [address] MCHC 33.1 G/dL Normal 32.0-36.0 [facility] ([place] Comment on above: Performed By: #### G FR, ANEU, MG, ADIFF, CBC, BMP #### [place] [address] MCV (RBC) [Entitic vol] 87.4 fL Normal 81.0-100.0 [facility] ([place] Comment on above: Performed By: #### G FR, ANEU, MG, ADIFF, CBC, BMP #### [place] [address] Platelet 226 10 3/mcL Normal 150-450 [facility] ([place] Comment on above: Performed By: #### G FR, ANEU, MG, ADIFF, CBC, BMP #### [place] [address] Platelet mean volume (Bld) [Entitic vol] 7.4 fL Normal 6.4-10.5 [facility] ([place] Comment on above: Performed By: #### G FR, ANEU, MG, ADIFF, CBC, BMP #### [place] [address] RBC 4.61 10 6/mcL Normal 4.50-6.00 [facility] ([place] Comment on above: Performed By: #### G FR, ANEU, MG, ADIFF, CBC, BMP #### [place] [address] WBC 7.1 10 3/mcL Normal 4.5-10.8 [facility] ([place] Comment on above: Performed By: #### G FR, ANEU, MG, ADIFF, CBC, BMP #### [place] [address] LABORATORYOrdered By: SYSTEM SYSTEM on 03-07-2023 Basophils (Bld) [#/Vol] 0.0 103/mcL Normal 0.0 - 0.3 10^3/mcL AH Workflow SS Basophils/100 WBC (Bld) 0.4 % Normal 0.0 - 2.5 % AH Workflow SS Calcium [Mass/Vol] 9.2 mg/dL Normal 8.7 - 10. 4 mg/dL AH ADM SS Chloride [Moles/Vol] 104 mmol/L Normal 98 - 11 0 mEq/L ADM SS CO2 [Moles/Vol] 32 mmol/L Normal 22 - 32 mEq/L ADM SS Creatinine [Mass/Vol] 0.93 mg/dL Normal 0.60 - 1.40 mg/dL ADM SS Electrolyte Balance 6.0 mEq/L Normal 4.0 - 15 .0 mEq/L ADM SS Eosinophils (Bld) [#/Vol] 0.3 103/mcL Normal 0.0 - 0.7 10^3/mcL Workflow SS Eosinophils/100 WBC (Bld) 4.1 % Normal 0.0 - 6.0 % Workflow SS Erythrocyte distribution width (RBC) [Ratio] 14.8 % Normal 11.5 - 15.5 % Workflow SS GFR/1.73 sq M.predicted among blacks MDRD (S/P/Bld) [Vol rate/Area] ml/min/1.73sqm Invalid Interpretation Code ADM SS Comment on above: Interpretive Data: GFR Population mean for , Non- Americans Ages 20-29 = 116 mL/min/1.73 sq.m. Ages 30-39 = 107 mL/min/1.73 sq.m. Ages 40-49 = 99 mL/min/1.73 sq.m. Ages 50-59 = 93 mL/min/1.73 sq.m. Ages 60-69 = 85 mL/min/1.73 sq.m. Ages 70+ = 75 mL/min/1.73 sq.m. Chronic Kidney Disease: Less than 60 mL/min/1.73 square meters End Stage Renal Disease: Less than 15 mL/min/1.73 square meters GFR/1.73 sq M.predicted among non-blacks MDRD (S/P/Bld) [Vol rate/Area] ml/min/1.73sqm Invalid Interpretation Code ADM SS Comment on above: Interpretive Data: GFR Population mean for , Non- Americans Ages 20-29 = 116 mL/min/1.73 sq.m. Ages 30-39 = 107 mL/min/1.73 sq.m. Ages 40-49 = 99 mL/min/1.73 sq.m. Ages 50-59 = 93 mL/min/1.73 sq.m. Ages 60-69 = 85 mL/min/1.73 sq.m. Ages 70+ = 75 mL/min/1.73 sq.m. Chronic Kidney Disease: Less than 60 mL/min/1.73 square meters End Stage Renal Disease: Less than 15 mL/min/1.73 square meters Glucose [Mass/Vol] 126 mg/dL High 82 - 115 mg/dL ADM SS Hematocrit (Bld) [Volume fraction] 40.2 % Normal 40.0 - 52.0 % AH Workflow SS Hemoglobin (Bld) [Mass/Vol] 13.3 G/dL Normal 13.0 - 17.5 G/dL AH Workflow SS Lymphocytes (Bld) [#/Vol] 1.1 103/mcL Normal 0.9 - 4.3 10^3/mcL AH Workflow SS Lymphocytes/100 WBC (Bld) 15.3 % Low 20.0 - 40.0 % AH Workflow SS Magnesium [Mass/Vol] 2.0 mg/dL Normal 1.6 - 2 .4 mg/dL ADM SS MCH (RBC) [Entitic mass] 28.9 pg Normal 27.0 - 33.0 pg AH Workflow SS MCHC 33.1 G/dL Normal 32.0 - 36.0 G/dL AH Workflow SS MCV (RBC) [Entitic vol] 87.4 fL Normal 81.0 - 100.0 fL AH Workflow SS Monocytes (Bld) [#/Vol] 0.9 103/mcL Normal 0.1 - 1.4 10^3/mcL AH Workflow SS Monocytes/100 WBC (Bld) 12.6 % Normal 2.0 - 13.0 % AH Workflow SS Neutrophils (Bld) [#/Vol] 4.8 103/mcL Normal 2.3 - 8.1 10^3/mcL AH Workflow SS Neutrophils/100 WBC (Bld) 67.6 % Normal 50.0 - 75.0 % AH Workflow SS Platelet mean volume (Bld) [Entitic vol] 7.4 fL Normal 6.4 - 10.5 fL AH Workflow SS Platelets (Bld) [#/Vol] 226 103/mcL Normal 150 - 450 10^3/mcL AH Workflow SS Potassium [Moles/Vol] 4.0 mmol/L Normal 3.5 - 5.0 mEq/L ADM SS RBC (Bld) [#/Vol] 4.61 106/mcL Normal 4.50 - 6.0 0 10^6/mcL AH Workflow SS Sodium [Moles/Vol] 142 mmol/L Normal 136 - 145 mEq/L AH ADM SS Urea nitrogen [Mass/Vol] 22.0 mg/dL Normal 8.0 - 22.0 mg/dL AH ADM SS Urea nitrogen/Creatinine [Mass ratio] 23.7 ratio High 10.0 - 22.0 ratio AH ADM SS WBC (Bld) [#/Vol] 7.1 103/mcL Normal 4.5 - 10.8 10^3/mcL AH Workflow SS MGon 03-07-2023 Magnesium [Mass/Vol] 2.0 mg/dL Normal 1.6-2.4 [facility] ([place]) Comment on above: Performed By: #### G FR, ANEU, MG, ADIFF, CBC, BMP #### [address] [address] .Auto Diffon 03-06-2023 Basophil, Absolute 0.0 10 3/mcL Normal 0.0-0.3 [facility] ([place]) Comment on above: Performed By: #### G FR, ADIFF, TSH, ANEU, CMP, LIPID, PRO, T4, CBC, A1C #### [address] [address] Basophils/100 WBC (Bld) 0.4 % Normal 0.0-2.5 [facility] ([place]) Comment on above: Performed By: #### G FR, ADIFF, TSH, ANEU, CMP, LIPID, PRO, T4, CBC, A1C #### [address] [address] Eosinophil, Absolute 0.2 10 3/mcL Normal 0.0-0.7 [facility] ([place]) Comment on above: Performed By: #### G FR, ADIFF, TSH, ANEU, CMP, LIPID, PRO, T4, CBC, A1C #### [address] [address] Eosinophils/100 WBC (Bld) 3.0 % Normal 0.0-6.0 [facility] ([place] Comment on above: Performed By: #### G FR, ADIFF, TSH, ANEU, CMP, LIPID, PRO, T4, CBC, A1C #### [address] [address] Lymphocyte, Absolute 1.1 10 3/mcL Normal 0.9-4.3 [facility] ([place] Comment on above: Performed By: #### G FR, ADIFF, TSH, ANEU, CMP, LIPID, PRO, T4, CBC, A1C #### [address] [address] Lymphocytes/100 WBC (Bld) 16.1 % Low 20.0-40.0 [facility] ([place] Comment on above: Performed By: #### G FR, ADIFF, TSH, ANEU, CMP, LIPID, PRO, T4, CBC, A1C #### [address] [address] Monocyte, Absolute 0.6 10 3/mcL Normal 0.1-1.4 [facility] ([place]) Comment on above: Performed By: #### G FR, ADIFF, TSH, ANEU, CMP, LIPID, PRO, T4, CBC, A1C #### [address] [address] Monocytes/100 WBC (Bld) 9.3 % Normal 2.0-13.0 [facility] ([place] Comment on above: Performed By: #### G FR, ADIFF, TSH, ANEU, CMP, LIPID, PRO, T4, CBC, A1C #### [address] [address] Neutrophils/100 WBC (Bld) 71.2 % Normal 50.0-75.0 [facility] ([place] Comment on above: Performed By: #### G FR, ADIFF, TSH, ANEU, CMP, LIPID, PRO, T4, CBC, A1C #### [address] [address] .GFRon 03-06-2023 GFR Non- >60 Normal [facility] ([place] Comment on above: Result Comment: GFR Population mean for , Non- Americans Ages 20-29 = 116 mL/min/1.73 sq.m. Ages 30-39 = 107 mL/min/1.73 sq.m. Ages 40-49 = 99 mL/min/1.73 sq.m. Ages 50-59 = 93 mL/min/1.73 sq.m. Ages 60-69 = 85 mL/min/1.73 sq.m. Ages 70+ = 75 mL/min/1.73 sq.m. Chronic Kidney Disease: Less than 60 mL/min/1.73 square meters End Stage Renal Disease: Less than 15 mL/min/1.73 square meters Performed By: #### G FR, ANEU, MG, ADIFF, CBC, BMP #### [address] [address] GFR >60 Normal [facility] ([place]) Comment on above: Result Comment: GFR Population mean for , Non- Americans Ages 20-29 = 116 mL/min/1.73 sq.m. Ages 30-39 = 107 mL/min/1.73 sq.m. Ages 40-49 = 99 mL/min/1.73 sq.m. Ages 50-59 = 93 mL/min/1.73 sq.m. Ages 60-69 = 85 mL/min/1.73 sq.m. Ages 70+ = 75 mL/min/1.73 sq.m. Chronic Kidney Disease: Less than 60 mL/min/1.73 square meters End Stage Renal Disease: Less than 15 mL/min/1.73 square meters Performed By: #### G FR, ANEU, MG, ADIFF, CBC, BMP #### [address] [address] .NEUABSon 03-06-2023 Neutrophil, Absolute 4.8 10 3/mcL Normal 2.3-8.1 [facility] ([place] Comment on above: Performed By: #### G FR, ANEU, MG, ADIFF, CBC, BMP #### [address] [address] A1Con 03-06-2023 HbA1c (Bld) [Mass fraction] 6.3 % High 4.0-6.0 [facility] ([place]) Comment on above: Performed By: #### G FR, ANEU, MG, ADIFF, CBC, BMP #### [address] [address] BMP with eGFRon 03-06-2023 AGE 78 years Normal [facility] Comment on above: Performed By: #### 2 94160 #### [facility],[address] [place] [address] Anion gap [Moles/Vol] 12 mmol/L Normal 10 - 2 0 mmol/L [facility] Comment on above: Performed By: #### 2 20320 #### [facility],[address] [place] [address] BMP with eGFR Normal [facility] Comment on above: Result Comment: BASI C METABOLIC PANEL Performed By: #### 2 54584 #### [facility],[address] [place] [address] Calcium [Mass/Vol] 9.1 mg/dL Normal 8.5 - 10. 1 mg/dL [facility] Comment on above: Performed By: #### 2 68914 #### [facility],[address] [place] [address] Chloride [Moles/Vol] 104 mmol/L Normal 98 - 10 7 mmol/L [facility] Comment on above: Performed By: #### 2 69934 #### [facility],[address] [place] [address] CO2 [Moles/Vol] 28.9 mmol/L Normal 21.0 - 32.0 mmol/L [facility] Comment on above: Performed By: #### 2 56653 #### [facility],[address] [place] [address] Creatinine [Mass/Vol] 1.01 mg/dL Normal 0.70 - 1.30 mg/dL [facility] Comment on above: Performed By: #### 2 85791 #### [facility],[address] [place] [address] GFR/1.73 sq M.predicted among non-blacks MDRD (S/P/Bld) [Vol rate/Area] mL/min/{1.73_m2} Normal 60 - 999 [facility] Comment on above: Performed By: #### 2 51046 #### [facility],[address] [place] [address] Result Comment: ACCO RDING TO THE NATIONAL KIDNEY DISEASE EDUCATION PROGRAM(NKDE), A NORMAL eGFR IS A VALUE GREATER THAN OR EQUAL TO 60 ML/MIN/1.73 SQ METERS. CHRONIC KIDNEY DISEASE: <60mL/MIN/1.73 SQ METERS KIDNEY FAILURE: <15mL/MIN/1.73 SQ METERS THIS TEST SHOULD ONLY BE USED FOR PATIENTS 18 YEARS OF AGE AND OLDER. Glucose [Mass/Vol] 120 mg/dL Abnormal 74 - 106 mg/dL [facility] Comment on above: Performed By: #### 2 [address]1203 #### [place] [address] Potassium [Moles/Vol] 3.7 mmol/L Normal 3.5 - 5.1 mmol/L [facility] Comment on above: Performed By: #### 2 80348 #### [facility],[address] [place], [place] [address] Sodium [Moles/Vol] 141 mmol/L Normal 136 - 145 mmol/L [facility] Comment on above: Performed By: #### 2 29139 #### [facility],[address] [place], [place] [address] Urea nitrogen [Mass/Vol] 17 mg/dL Normal 7 - 18 mg/dL [facility] Comment on above: Performed By: #### 2 [id number] #### [facility],[address] [place] [address] CBCon 03-06-2023 Erythrocyte distribution width (RBC) [Ratio] 14.8 % Normal 11.5-15.5 [facility] ([place]) Comment on above: Performed By: #### G FR, ADIFF, TSH, ANEU, CMP, LIPID, PRO, T4, CBC, A1C #### [address] [address] Hematocrit (Bld) [Volume fraction] 40.0 % Normal 40.0-52.0 [facility] ([place] Comment on above: Performed By: #### G FR, ADIFF, TSH, ANEU, CMP, LIPID, PRO, T4, CBC, A1C #### [place] [address] Hgb 13.3 G/dL Normal 13.0-17.5 [facility] ([place] Comment on above: Performed By: #### G FR, ADIFF, TSH, ANEU, CMP, LIPID, PRO, T4, CBC, A1C #### [place] [address] MCH (RBC) [Entitic mass] 29.1 pg Normal 27.0-33.0 [facility] ([place] Comment on above: Performed By: #### G FR, ADIFF, TSH, ANEU, CMP, LIPID, PRO, T4, CBC, A1C #### [place] [address] MCHC 33.2 G/dL Normal 32.0-36.0 [facility] ([place] Comment on above: Performed By: #### G FR, ADIFF, TSH, ANEU, CMP, LIPID, PRO, T4, CBC, A1C #### [place] [address] MCV (RBC) [Entitic vol] 87.5 fL Normal 81.0-100.0 [facility] ([place] Comment on above: Performed By: #### G FR, ADIFF, TSH, ANEU, CMP, LIPID, PRO, T4, CBC, A1C #### [place] [address] Platelet 232 10 3/mcL Normal 150-450 [facility] ([place] Comment on above: Performed By: #### G FR, ADIFF, TSH, ANEU, CMP, LIPID, PRO, T4, CBC, A1C #### [place] [address] Platelet mean volume (Bld) [Entitic vol] 7.6 fL Normal 6.4-10.5 [facility] ([place] Comment on above: Performed By: #### G FR, ADIFF, TSH, ANEU, CMP, LIPID, PRO, T4, CBC, A1C #### [address] [address] RBC 4.57 10 6/mcL Normal 4.50-6.00 [facility] ([place] Comment on above: Performed By: #### G FR, ADIFF, TSH, ANEU, CMP, LIPID, PRO, T4, CBC, A1C #### [address] [address] WBC 6.8 10 3/mcL Normal 4.5-10.8 [facility] ([place] Comment on above: Performed By: #### G FR, ADIFF, TSH, ANEU, CMP, LIPID, PRO, T4, CBC, A1C #### [address] [address] CBC + DIFFon 03-06-2023 Baso # 0.00 x10EE3/UL Normal 0.00 - 0.10 [facility] Comment on above: Performed By: #### 2 06050 #### [facility],[address] [place] [address] Basophils/100 WBC (Bld) 0.3 % Normal 0.0 - 2.0 % [facility] Comment on above: Performed By: #### 2 90997 #### [facility],[address] [place] [address] CBC + DIFF Normal [facility] Comment on above: Result Comment: CBC- COMPLETE BLOOD COUNT Performed By: #### 2 22944 #### [facility],[address] [place] [address] EO # 0.30 x10EE3/UL Normal 0.00 - 0.50 [facility] Comment on above: Performed By: #### 2 16857 #### [facility],[address] [place] [address] Eosinophils/100 WBC (Bld) 3.7 % Normal 0.0 - 7.0 % [facility] Comment on above: Performed By: #### 2 34449 #### [facility],[address] [place] [address] Erythrocyte distribution width (RBC) [Ratio] 14.9 % Normal 12.0 - 15.6 % [facility] Comment on above: Performed By: #### 2 05664 #### [facility],[address] [place] [address] Hematocrit (Bld) [Volume fraction] 38.1 % Abnormal 40.0 - 52.0 % [facility] Comment on above: Performed By: #### 2 76131 #### [facility],[address] [place] [address] Hemoglobin (Bld) [Mass/Vol] 12.7 g/dL Abnormal 13.0 - 17.5 g/dL [facility] Comment on above: Performed By: #### 2 50290 #### [facility],[address] [place] [address] Lymph # 1.10 x10EE3/UL Normal 0.80 - 2.80 [facility] Comment on above: Performed By: #### 2 44061 #### [facility],[address] [place] [address] Lymphocytes/100 WBC (Bld) 15.5 % Abnormal 20.0 - 45.0 % [facility] Comment on above: Performed By: #### 2 47838 #### [facility],[address] [place] [address] MANUAL DIFF N/A Normal [facility] Comment on above: Performed By: #### 2 24978 #### [facility],[address] [place] [address] MCH (RBC) [Entitic mass] 29 pg Normal 27 - 33 pg [facility] Comment on above: Performed By: #### 2 40761 #### [facility],[address] [place] [address] MCHC 33 X10 3 Normal 32 - 36 [facility] Comment on above: Performed By: #### 2 09038 #### [facility],[address] [place], [place] [address] MCV (RBC) [Entitic vol] 87 fL Normal 81 - 98 fL [facility] Comment on above: Performed By: #### 2 19632 #### [facility],[address] [place] [address] [place] # 0.70 x10EE3/UL Normal 0.20 - 1.00 [facility] Comment on above: Performed By: #### 2 12253 #### [facility],[address] [place] [address] MONOS % 10.1 % High 0.0 - 10.0 [facility] Comment on above: Performed By: #### 2 38115 #### [facility],[address] [place] [address] Morphology Luis Carlos (Bld) [Interp] N/A Normal [facility] Comment on above: Result Comment: {CD] Performed By: #### 2 08932 #### [facility],[address] [place] [address] Neut # 5.10 x10EE3/UL Normal 1.50 - 7.10 [facility] Comment on above: Performed By: #### 2 33686 #### [facility],[address] [place] [address] Neutrophils/100 WBC (Bld) 70.4 % Normal 46.0 - 76.0 % [facility] Comment on above: Performed By: #### 2 24676 #### [facility],[address] [place] [address] PLATELET 229 x10EE3/UL Normal 150 - 450 [facility] Comment on above: Performed By: #### 2 34228 #### [facility],[address] [place] [address] Platelet mean volume (Bld) [Entitic vol] 7.6 fL Normal 6.4 - 10.5 fL [facility] Comment on above: Result Comment: AUTO MATED DIFFERENTIAL Performed By: #### 2 24462 #### [facility],[address] [place] [address] RBC 4.38 x 10EE6/UL Low 4.50 - 6.00 [facility] Comment on above: Performed By: #### 2 30092 #### [facility],[address] [place] [address] WBC 7.3 x 10EE3/UL Normal 4.5 - 10.8 [facility] Comment on above: Performed By: #### 2 35918 #### [facility],[address] [place] [address] CMPon 03-06-2023 Albumin Level 3.5 G/dL Normal 3.2-4.8 [facility] ([place]) Comment on above: Performed By: #### G FR, ANEU, MG, ADIFF, CBC, BMP #### [address] [address] Albumin/Globulin [Mass ratio] 1.1 {ratio} Normal 0.9-1.6 [facility] ([place] Comment on above: Performed By: #### G FR, ANEU, MG, ADIFF, CBC, BMP #### [address] [address] ALP [Catalytic activity/Vol] 66 U/L Normal 38-126 [facility] ([place] Comment on above: Performed By: #### G FR, ANEU, MG, ADIFF, CBC, BMP #### [address] [address] ALT/SGPT <7 Low 12-55 [facility] ([place] Comment on above: Performed By: #### G FR, ANEU, MG, ADIFF, CBC, BMP #### [address] [address] AST [Catalytic activity/Vol] 11 U/L Normal 8-34 [facility] ([place] Comment on above: Performed By: #### G FR, ANEU, MG, ADIFF, CBC, BMP #### [address] [address] Bili Total 0.40 mg/dL Normal 0.20-1.20 [facility] ([place] Comment on above: Result Comment: Use of this assay is not recommended for patients undergoing treatment with eltrombopag due to the potential for falsely elevated results. Performed By: #### G FR, ANEU, MG, ADIFF, CBC, BMP #### [place] [address] BUN/Creatinine Ratio 19.1 ratio Normal 10.0-22.0 [facility] ([place]) Comment on above: Performed By: #### G FR, ANEU, MG, ADIFF, CBC, BMP #### [place] [address] Calcium [Mass/Vol] 9.7 mg/dL Normal 8.7-10.4 [facility] ([place] Comment on above: Performed By: #### G FR, ANEU, MG, ADIFF, CBC, BMP #### [place] [address] Chloride [Moles/Vol] 105 mmol/L Normal 98-110 [facility] ([place]) Comment on above: Performed By: #### G FR, ANEU, MG, ADIFF, CBC, BMP #### [place] [address] CO2 [Moles/Vol] 24 mmol/L Normal 22-32 [facility] ([place] Comment on above: Performed By: #### G FR, ANEU, MG, ADIFF, CBC, BMP #### [place] [id number] Creatinine [Mass/Vol] 0.89 mg/dL Normal 0.60-1.40 [facility] ([place]) Comment on above: Performed By: #### G FR, ANEU, MG, ADIFF, CBC, BMP #### [place] [address] Electrolyte Balance 11.0 mEq/L Normal 4.0-15.0 [facility] ([place] Comment on above: Performed By: #### G FR, ANEU, MG, ADIFF, CBC, BMP #### [address] [address] Globulin 3.3 G/dL Normal 1.5-3.8 [facility] ([place] Comment on above: Performed By: #### G FR, ANEU, MG, ADIFF, CBC, BMP #### [address] [address] Glucose [Mass/Vol] 169 mg/dL High 82-115 [facility], [facility] ([place] Comment on above: Performed By: #### G FR, ANEU, MG, ADIFF, CBC, BMP #### [address] [address] Potassium [Moles/Vol] 3.9 mmol/L Normal 3.5-5.0 [facility] ([place] Comment on above: Performed By: #### G FR, ANEU, MG, ADIFF, CBC, BMP #### [address] [address] Sodium [Moles/Vol] 140 mmol/L Normal 136-145 [facility], [facility] ([place] Comment on above: Performed By: #### G FR, ANEU, MG, ADIFF, CBC, BMP #### [address] [address] Total Protein 6.8 G/dL Normal 5.7-8.2 [facility] ([place] Comment on above: Result Comment: No te - New Reference Range in effect 19 Performed By: #### G FR, ANEU, MG, ADIFF, CBC, BMP #### [place] [id number] Urea nitrogen [Mass/Vol] 17.0 mg/dL Normal 8.0-22.0 [facility] ([place] Comment on above: Performed By: #### G FR, ANEU, MG, ADIFF, CBC, BMP #### [address] [address] LABORATORYOrdered By: Margarette Ann on 03-06-2023 Blood Glucose Testing Reason Routine (03/06/23 9:19 PM) [facility] Glucose [Mass/Vol] 135 mg/dL High 82 - 115 mg/dL [facility] LABORATORYOrdered By: SYSTEM SYSTEM on 03-06-2023 Magnesium [Mass/Vol] 2.1 mg/dL Normal 1.6 - 2 .4 mg/dL ADM SS Albumin BCP dye [Mass/Vol] 3.5 G/dL Normal 3.2 - 4.8 G/dL ADM SS Albumin/Globulin [Mass ratio] 1.1 {ratio} Normal 0.9 - 1.6 ratio AH ADM SS ALP [Catalytic activity/Vol] 66 U/L Normal 38 - 126 U/L ADM SS ALT No additional P-5'-P [Catalytic activity/Vol] U/L 1 Low 12 - 55 U/L AH ADM SS AST [Catalytic activity/Vol] 11 U/L Normal 8 - 34 U/L ADM SS Basophils (Bld) [#/Vol] 0.0 103/mcL Normal 0.0 - 0.3 10^3/mcL Workflow SS Basophils/100 WBC (Bld) 0.4 % Normal 0.0 - 2.5 % Workflow SS Bilirubin [Mass/Vol] 0.40 mg/dL Normal 0.20 - 1.20 mg/dL ADM SS Comment on above: Interpretive Data: U se of this assay is not recommended for patients undergoing treatment with eltrombopag due to the potential for falsely elevated results. Calcium [Mass/Vol] 9.7 mg/dL Normal 8.7 - 10. 4 mg/dL ADM SS Chloride [Moles/Vol] 105 mmol/L Normal 98 - 11 0 mEq/L ADM SS CO2 [Moles/Vol] 24 mmol/L Normal 22 - 32 mEq/L ADM SS Creatinine [Mass/Vol] 0.89 mg/dL Normal 0.60 - 1.40 mg/dL ADM SS Electrolyte Balance 11.0 mEq/L Normal 4.0 - 15 .0 mEq/L AH ADM SS Eosinophils (Bld) [#/Vol] 0.2 103/mcL Normal 0.0 - 0.7 10^3/mcL Workflow SS Eosinophils/100 WBC (Bld) 3.0 % Normal 0.0 - 6.0 % Workflow SS Erythrocyte distribution width (RBC) [Ratio] 14.8 % Normal 11.5 - 15.5 % AH Workflow SS GFR/1.73 sq M.predicted among blacks MDRD (S/P/Bld) [Vol rate/Area] ml/min/1.73sqm Invalid Interpretation Code [facility] Comment on above: Interpretive Data: GFR Population mean for , Non- Americans Ages 20-29 = 116 mL/min/1.73 sq.m. Ages 30-39 = 107 mL/min/1.73 sq.m. Ages 40-49 = 99 mL/min/1.73 sq.m. Ages 50-59 = 93 mL/min/1.73 sq.m. Ages 60-69 = 85 mL/min/1.73 sq.m. Ages 70+ = 75 mL/min/1.73 sq.m. Chronic Kidney Disease: Less than 60 mL/min/1.73 square meters End Stage Renal Disease: Less than 15 mL/min/1.73 square meters GFR/1.73 sq M.predicted among non-blacks MDRD (S/P/Bld) [Vol rate/Area] ml/min/1.73sqm Invalid Interpretation Code [facility] Comment on above: Interpretive Data: GFR Population mean for , Non- Americans Ages 20-29 = 116 mL/min/1.73 sq.m. Ages 30-39 = 107 mL/min/1.73 sq.m. Ages 40-49 = 99 mL/min/1.73 sq.m. Ages 50-59 = 93 mL/min/1.73 sq.m. Ages 60-69 = 85 mL/min/1.73 sq.m. Ages 70+ = 75 mL/min/1.73 sq.m. Chronic Kidney Disease: Less than 60 mL/min/1.73 square meters End Stage Renal Disease: Less than 15 mL/min/1.73 square meters Globulin 3.3 G/dL Normal 1.5 - 3.8 G/dL ADM SS Glucose [Mass/Vol] 169 mg/dL High 82 - 115 mg/dL ADM SS HbA1c (Bld) [Mass fraction] 6.3 % High 4.0 - 6.0 % Auto Chem SS Hematocrit (Bld) [Volume fraction] 40.0 % Normal 40.0 - 52.0 % Workflow SS Hemoglobin (Bld) [Mass/Vol] 13.3 G/dL Normal 13.0 - 17.5 G/dL AH Workflow SS Lymphocytes (Bld) [#/Vol] 1.1 103/mcL Normal 0.9 - 4.3 10^3/mcL AH Workflow SS Lymphocytes/100 WBC (Bld) 16.1 % Low 20.0 - 40.0 % AH Workflow SS MCH (RBC) [Entitic mass] 29.1 pg Normal 27.0 - 33.0 pg AH Workflow SS MCHC 33.2 G/dL Normal 32.0 - 36.0 G/dL AH Workflow SS MCV (RBC) [Entitic vol] 87.5 fL Normal 81.0 - 100.0 fL AH Workflow SS Monocytes (Bld) [#/Vol] 0.6 103/mcL Normal 0.1 - 1.4 10^3/mcL AH Workflow SS Monocytes/100 WBC (Bld) 9.3 % Normal 2.0 - 13.0 % AH Workflow SS Neutrophils (Bld) [#/Vol] 4.8 103/mcL Normal 2.3 - 8.1 10^3/mcL AH Workflow SS Neutrophils/100 WBC (Bld) 71.2 % Normal 50.0 - 75.0 % AH Workflow SS Platelet mean volume (Bld) [Entitic vol] 7.6 fL Normal 6.4 - 10.5 fL AH Workflow SS Platelets (Bld) [#/Vol] 232 103/mcL Normal 150 - 450 10^3/mcL AH Workflow SS Potassium [Moles/Vol] 3.9 mmol/L Normal 3.5 - 5.0 mEq/L ADM SS Protein [Mass/Vol] 6.8 G/dL Normal 5.7 - 8.2 G/dL ADM SS Comment on above: Interpretive Data: * *Note - New Reference Range in effect 19 RBC (Bld) [#/Vol] 4.57 106/mcL Normal 4.50 - 6.0 0 10^6/mcL AH Workflow SS Sodium [Moles/Vol] 140 mmol/L Normal 136 - 145 mEq/L ADM SS T4 [Mass/Vol] 6.2 ug/dL Normal 4.5 - 10.9 mcg/dL AH ADM SS Comment on above: Interpretive Data: * *Note - New Reference Range in effect 19 TSH Qn 3.877 mIU/mL Normal 0.550 - 4.780 mIU/mL ADM SS Comment on above: Interpretive Data: * *Note - New Reference Range in effect 19 Urea nitrogen [Mass/Vol] 17.0 mg/dL Normal 8.0 - 22.0 mg/dL ADM SS Urea nitrogen/Creatinine [Mass ratio] 19.1 ratio Normal 10.0 - 22.0 ratio ADM SS WBC (Bld) [#/Vol] 6.8 103/mcL Normal 4.5 - 10.8 10^3/mcL Workflow SS LABORATORYOrdered By: Azar Carvajal on 03-06-2023 Cholesterol [Mass/Vol] 175 mg/dL Normal 50 - 199 mg/dL ADM SS Comment on above: Interpretive Data: C holesterol Reference Interval: Less than 200 Desirable 200-239 Borderline high risk 240 and above High risk Cholesterol in HDL [Mass/Vol] 46 mg/dL Normal 40 - 59 mg/dL ADM SS Cholesterol in LDL [Mass/Vol] 111 mg/dL Normal 0 - 129 mg/dL ADM SS Triglyceride [Mass/Vol] 90 mg/dL Normal 3 - 149 mg/dL ADM SS LABORATORYOrdered By: Nicole Gutierrez on 03-06-2023 Natriuretic peptide.B prohormone N-Terminal [Mass/Vol] 798 pg/mL Normal 0 - 1800 pg/mL Auto Chem SS Comment on above: Interpretive Data: N T-proBNP results of less than 300 pg/mL effectively rules out acute congestive heart failure with 99% negative predictive value. LABORATORYOrdered By: Ena Olea on 03-06-2023 PT Coag (PPP) [Time] 12.6 s Normal 9.0 - 1 4.2 seconds [facility] SS Comment on above: Interpretive Data: E ffective 10/22/07, Protime results may be affected by some antibiotics (i.e. Ciprofloxacin, Azithromycin, Bactrim) which may potentiate the action of oral anticoagulants, with further increases in Protime/INR. PT International Ratio 1.1 ratio Invalid Interpretation Code [facility] SS Comment on above: Interpretive Data: T lashaun [employer] [employer] (CHEST, 1992, 102:312S-25S) recommended therapeutic range for oral anticoagulant therapy is: LOW RISK: Prophylaxis of venous thrombosis INR: 2.0-3.0 Treatment of pulmonary embolism 2.0-3.0 Prevention of systemic embolism 2.0-3.0 HIGH RISK: Mechanical prosthetic valves 2.5-3.5 LIPIDon 03-06-2023 Cholesterol [Mass/Vol] 175 mg/dL Normal 50-199 [facility] ([place]) Comment on above: Result Comment: Chol esterol Reference Interval: Less than 200 Desirable 200-239 Borderline high risk 240 and above High risk Performed By: #### G FR, ANEU, MG, ADIFF, CBC, BMP #### [address] [address] Cholesterol in HDL [Mass/Vol] 46 mg/dL Normal 40-59 [facility] ([place]) Comment on above: Performed By: #### G FR, ANEU, MG, ADIFF, CBC, BMP #### [address] [address] Cholesterol in LDL [Mass/Vol] 111 mg/dL Normal 0-129 [facility] ([place]) Comment on above: Performed By: #### G FR, ANEU, MG, ADIFF, CBC, BMP #### [address] [address] Triglyceride [Mass/Vol] 90 mg/dL Normal 3-149 [facility] ([place]) Comment on above: Performed By: #### G FR, ANEU, MG, ADIFF, CBC, BMP #### [address] [address] Laboratory - Chemistry and C hemistry - challengeon 03-06-2023 GFR/1.73 sq M.predicted among blacks MDRD (S/P/Bld) [Vol rate/Area] mL/min/{1.73_m2} Normal 60 - 999 {ML/MINUTE} [employer] [facility] [employer] [facility] [employer] [facility] Work Phone: GFR/1.73 sq M.predicted MDRD (S/P/Bld) [Vol rate/Area] mL/min/{1.73_m2} Normal 60 - 999 {ML/MINUTE} [employer] [facility] [employer] [facility] [employer] [facility] Work Phone: [phone] Laboratory - Hematology and Cell countson 03-06-2023 Basophils (Bld) [#/Vol] 0.00 {x10EE3/UL} Normal 0.00 - 0.10 {x10EE3/UL} [facility]; [facility] Work Phone: Eosinophils (Bld) [#/Vol] 0.30 {x10EE3/UL} Normal 0.00 - 0.50 {x10EE3/UL} [facility]; [facility] Work Phone: Lymphocytes (Bld) [#/Vol] 1.10 {x10EE3/UL} Normal 0.80 - 2.80 {x10EE3/UL} [facility]; [facility] Work Phone: MCHC (RBC) [Mass/Vol] 33 {X10_3} Normal 32 - 3 6 {X10_3} [facility]; [facility] Work Phone: Monocytes (Bld) [#/Vol] 0.70 {x10EE3/UL} Normal 0.20 - 1.00 {x10EE3/UL} [facility]; [facility] Work Phone: Monocytes/100 WBC (Bld) 10.1 % Abnormal 0.0 - 10.0 % [facility]; [facility] Work Phone: Neutrophils (Bld) [#/Vol] 5.10 {x10EE3/UL} Normal 1.50 - 7.10 {x10EE3/UL} [facility]; [facility] Work Phone: Platelets (Bld) [#/Vol] 229 {x10EE3/UL} Normal 150 - 450 {x10EE3/UL} [employer] [facility] [employer] [facility] [employer] [facility], [employer]. Work Phone: RBC (Bld) [#/Vol] 4.38 {x_10EE6/UL} Abnormal 4.50 - 6.00 {x_10EE6/UL} [employer] [facility] Inc[employer] [facility] [employer], [employer]. Work Phone: WBC (Bld) [#/Vol] 7.3 {x_10EE3/UL} Normal 4.5 - 10.8 {x_10EE3/UL} [employer] [facility] [employer] [facility] [employer] [facility], [employer]. Work Phone: MAGNESIUMon 03-06-2023 Magnesium [Mass/Vol] 1.6 mg/dL Abnormal 1.8 - 2 .4 mg/dL [facility] Comment on above: Performed By: #### 2 [id number] #### [facility],[address] [place] [address] MGon 03-06-2023 Magnesium [Mass/Vol] 2.1 mg/dL Normal 1.6-2.4 [facility] ([place]) Comment on above: Performed By: #### M G #### [place] [address] No Panel Informationon 03-06 AGE 78 {years} Normal [employer] Work Phone: BMP with eGFR Normal [employer] [facility] [employer]. Work Phone: CBC + DIFF Normal [employer] [facility] [employer], [employer]. Work Phone: PBNPon 03-06-2023 Natriuretic peptide B (Bld) [Mass/Vol] 798 pg/mL Normal 0-1800 [facility] ([place]) Comment on above: Result Comment: NT-p roBNP results of less than 300 pg/mL effectively rules out acute congestive heart failure with 99% negative predictive value. Performed By: #### P BNP #### [facility] [address] [place] [address] PROon 03-06-2023 INR Coag (PPP) [Relative time] 1.1 {INR} Normal [facility] ([place]) Comment on above: Result Comment: [employer] [employer] (CHEST, 1991, 102:312S-25S) recommended therapeutic range for oral anticoagulant therapy is: LOW RISK: Prophylaxis of venous thrombosis INR: 2.0-3.0 Treatment of pulmonary embolism 2.0-3.0 Prevention of systemic embolism 2.0-3.0 HIGH RISK: Mechanical prosthetic valves 2.5-3.5 Performed By: #### G FR, ANEU, MG, ADIFF, CBC, BMP #### [place] [id number] [address] [place] [address] PT Coag (PPP) [Time] 12.6 s Normal 9.0-14.2 [facility] ([place]) Comment on above: Result Comment: Effe ctive 10/22/07, Protime results may be affected by some antibiotics (i.e. Ciprofloxacin, Azithromycin, Bactrim) which may potentiate the action of oral anticoagulants, with further increases in Protime/INR. Performed By: #### G FR, ANEU, MG, ADIFF, CBC, BMP #### [place] [id number] [address] [place] [address] T4on 03-06-2023 T4 [Mass/Vol] 6.2 ug/dL Normal 4.5-10.9 [facility] ([place]) Comment on above: Result Comment: No te - New Reference Range in effect 19 Performed By: #### G FR, ANEU, MG, ADIFF, CBC, BMP #### [facility] [address] [place] [address] TROPONIN I, HIGH SENSITIVITY on 03-06-2023 HS TROPONIN 40.3 pg/mL Normal 0.0 - 76.2 [facility] Comment on above: Performed By: #### 2 25905 #### [facility],[address] [place] [address] TSHon 03-06-2023 TSH 3.877 mIU/mL Normal 0.550-4.780 [facility] ([place]) Comment on above: Result Comment: No te - New Reference Range in effect 19 Performed By: #### G FR, ANEU, MG, ADIFF, CBC, BMP #### [place] [address] XR CHEST 1 VIEWon 03-06-2023 XR CHEST 1 VIEW ORIGINAL EXAMINATION: ONE XRAY VIEW OF THE CHEST 03/06/2023 3:12 pm COMPARISON: None. HISTORY: ORDERING SYSTEM PROVIDED HISTORY: Reason for Exam: SOB FINDINGS: The cardiomediastinal silhouette is enlarged. There is central vascular and interstitial prominence. Subtle left basilar airspace opacity. No pneumothorax. No acute osseous abnormality. IMPRESSION: Findings suggestive of CHF with mild congestion and edema. Left basilar opacity could represent more focal edema, layering pleural effusion versus a superimposed infectious or inflammatory process. I have personally reviewed the images of this examination and agree with the resident's findings and interpretation. Interpreted by: Chaz Leyva Preliminary Report By: Vanessa Whalen Electronically signed By Chaz Leyva Dictated Date: 03/06/2023 4:23:13 PM Prelim Date: 03/06/2023 4:24:48 PM Sign Date: 03/06/2023 4:31:38 PM Ordering Provider: AGUS Don [facility] ([place]) CBC + DIFFon 03-05-2023 Baso # 0.00 x10EE3/UL Normal 0.00 - 0.10 [facility] Comment on above: Performed By: #### 2 [id number] #### [facility],[address] [place] [address] Basophils/100 WBC (Bld) 0.2 % Normal 0.0 - 2.0 % [facility] Comment on above: Performed By: #### 2 51952 #### [facility] [facility],[address] [place] [address] CBC + DIFF Normal [facility] Comment on above: Result Comment: CBC- COMPLETE BLOOD COUNT Performed By: #### 2 10451 #### [place] [address] EO # 0.10 x10EE3/UL Normal 0.00 - 0.50 [facility] Comment on above: Performed By: #### 2 21853 #### [place] [address] Eosinophils/100 WBC (Bld) 1.5 % Normal 0.0 - 7.0 % [facility] Comment on above: Performed By: #### 2 03264 #### [facility],[address] [place] [address] Erythrocyte distribution width (RBC) [Ratio] 14.8 % Normal 12.0 - 15.6 % [facility] Comment on above: Performed By: #### 2 54157 #### [facility],[address] [place] [address] Hematocrit (Bld) [Volume fraction] 39.7 % Abnormal 40.0 - 52.0 % [facility] Comment on above: Performed By: #### 2 17965 #### [place] [address] Hemoglobin (Bld) [Mass/Vol] 13.3 g/dL Normal 13.0 - 17.5 g/dL [facility] Comment on above: Performed By: #### 2 54365 #### [facility],[address] [place] [address] Lymph # 1.10 x10EE3/UL Normal 0.80 - 2.80 [facility] Comment on above: Performed By: #### 2 89938 #### [place] [address] Lymphocytes/100 WBC (Bld) 15.1 % Abnormal 20.0 - 45.0 % [facility] Comment on above: Performed By: #### 2 54429 #### [facility],[address] [place] [address] MANUAL DIFF N/A Normal [facility] Comment on above: Performed By: #### 2 22600 #### [facility],[address] [place] [address] MCH (RBC) [Entitic mass] 29 pg Normal 27 - 33 pg [facility] Comment on above: Performed By: #### 2 36509 #### [facility],[address] [place] [address] MCHC 34 X10 3 Normal 32 - 36 [facility] Comment on above: Performed By: #### 2 71088 #### [facility],[address] [place] [address] MCV (RBC) [Entitic vol] 86 fL Normal 81 - 98 fL [facility] Comment on above: Performed By: #### 2 40691 #### [facility],[address] [place] [address] [place] # 0.70 x10EE3/UL Normal 0.20 - 1.00 [facility] Comment on above: Performed By: #### 2 90165 #### [facility],[address] [place] [address] MONOS % 9.9 % Normal 0.0 - 10.0 [facility] Comment on above: Performed By: #### 2 55168 #### [facility],[address] [place] [address] Morphology Luis Carlos (Bld) [Interp] N/A Normal [facility] Comment on above: Result Comment: {CD] Performed By: #### 2 15078 #### [facility],[address] [place] [address] Neut # 5.40 x10EE3/UL Normal 1.50 - 7.10 [facility] Comment on above: Performed By: #### 2 19211 #### [facility],[address] [place] [address]209 Neutrophils/100 WBC (Bld) 73.3 % Normal 46.0 - 76.0 % [facility] Comment on above: Performed By: #### 2 49814 #### [facility],[address] [place] [address]92 PLATELET 251 x10EE3/UL Normal 150 - 450 [facility] Comment on above: Performed By: #### 2 00388 #### [facility],[address] [place] [address] Platelet mean volume (Bld) [Entitic vol] 7.2 fL Normal 6.4 - 10.5 fL [facility] Comment on above: Result Comment: AUTO MATED DIFFERENTIAL Performed By: #### 2 93855 #### [facility],[address] [place] [address] 65145 RBC 4.60 x 10EE6/UL Normal 4.50 - 6.00 [facility] Comment on above: Performed By: #### 2 88200 #### [facility],[address] [place] [address] WBC 7.3 x 10EE3/UL Normal 4.5 - 10.8 [facility] Comment on above: Performed By: #### 2 25645 #### [facility],[address] [place], [place] [id number] CHEST 1 VIEWon 03-05-2023 CHEST 1 VIEW [place] [address] Patient: RICCO ZARATE Phone#: : 1945 Age: 78 Gender: M Pt. Type: ER Account: [id number] Location: [facility] Ordering: ELIZABETH RODRÍGUEZ Exam Date: 03/05/2023/10:53 Family Phys: SHAHLA BOWLES Charge Code: [id number] Physician: Christian Order #: [id number] Dose#: PROCEDURE: X-RAY CHEST 1 VIEW COMPARISON: None. INDICATIONS: Cough. FINDINGS: LUNGS: Chronic interstitial changes are present. No significant pulmonary parenchymal abnormalities. VASCULATURE: Normal. Unremarkable pulmonary vasculature. CARDIAC: Normal. No cardiac silhouette abnormality or cardiomegaly. MEDIASTINUM: The aorta is ectatic. Mediastinal widening to other etiology cannot be excluded. PLEURA: Normal. No effusion or pleural thickening. BONES: Normal. No fracture or visible bony lesion. OTHER: Negative. CONCLUSION: 1. Aortic ectasia. 2. There is no evidence of acute parenchymal abnormality. Dictated by: Saida Duque MD on 03/05/2023 at 11:22 Approved by: Saida Duque MD on 03/05/2023 at 11:24 Normal [facility] CMP with eGFRon 03-05-2023 AGE 78 years Normal [facility] Comment on above: Performed By: #### 2 44960 #### [place] [address] Albumin [Mass/Vol] 2.8 g/dL Abnormal 3.4 - 5.0 g/dL [facility] Comment on above: Performed By: #### 2 83534 #### [place] [address] Albumin/Globulin [Mass ratio] 0.7 {ratio} Low 0.9 - 1.6 [facility] Comment on above: Performed By: #### 2 90192 #### [place] [address] ALK PHOS 74 U/L Normal 46 - 116 U/L [facility] Comment on above: Performed By: #### 2 84265 #### [place] [address] ALT [Catalytic activity/Vol] 18 U/L Normal 16 - 63 U/L [facility] Comment on above: Performed By: #### 2 69185 #### [place] [address] Anion gap [Moles/Vol] 8 mmol/L Abnormal 10 - 2 0 mmol/L [facility] Comment on above: Performed By: #### 2 80221 #### [facility],[address] [place] [address] 13398 AST [Catalytic activity/Vol] 10 U/L Abnormal 15 - 37 U/L [facility] Comment on above: Performed By: #### 2 02657 #### [facility],[address] [place] [address]2317 B/C RATIO 17 ratio Normal 0 - 30 [facility] Comment on above: Performed By: #### 2 16884 #### [facility],[address] [place] [address] 43204 Bilirubin [Mass/Vol] 0.3 mg/dL Normal 0.2 - 1 .0 mg/dL [facility] Comment on above: Performed By: #### 2 15299 #### [facility],[address] [place] [address]70 Calcium [Mass/Vol] 9.0 mg/dL Normal 8.5 - 10. 1 mg/dL [facility] Comment on above: Performed By: #### 2 21941 #### [facility],[address] [place] [address] 6[address]75 Chloride [Moles/Vol] 105 mmol/L Normal 98 - 10 7 mmol/L [facility] Comment on above: Performed By: #### 2 64759 #### [facility],[address] [place] [address] 19857 CMP with eGFR Normal [facility] Comment on above: Result Comment: COMP REHENSIVE METABOLIC PANEL Performed By: #### 2 94585 #### [facility],[address] [place] [address] 13765 CO2 [Moles/Vol] 30.1 mmol/L Normal 21.0 - 32.0 mmol/L [facility] Comment on above: Performed By: #### 2 02649 #### [facility],[address] [place] [address]12 Creatinine [Mass/Vol] 0.88 mg/dL Normal 0.70 - 1.30 mg/dL [facility] Comment on above: Performed By: #### 2 28928 #### [facility],[address] [place] [address]171 GFR/1.73 sq M.predicted among non-blacks MDRD (S/P/Bld) [Vol rate/Area] mL/min/{1.73_m2} Normal 60 - 999 [facility] Comment on above: Performed By: #### 2 52115 #### [facility],[address] [place] [address] Result Comment: ACCO RDING TO THE NATIONAL KIDNEY DISEASE EDUCATION PROGRAM(NKDE), A NORMAL eGFR IS A VALUE GREATER THAN OR EQUAL TO 60 ML/MIN/1.73 SQ METERS. CHRONIC KIDNEY DISEASE: <60mL/MIN/1.73 SQ METERS KIDNEY FAILURE: <15mL/MIN/1.73 SQ METERS THIS TEST SHOULD ONLY BE USED FOR PATIENTS 18 YEARS OF AGE AND OLDER. Globulin (S) [Mass/Vol] 4.1 g/dL Abnormal 1.5 - 3.8 g/dL [facility] Comment on above: Performed By: #### 2 82876 #### [address] [address] Glucose [Mass/Vol] 127 mg/dL Abnormal 74 - 106 mg/dL [facility] Comment on above: Performed By: #### 2 04075 #### [facility],[address] [place] [address] Potassium [Moles/Vol] 3.2 mmol/L Abnormal 3.5 - 5.1 mmol/L [facility] Comment on above: Performed By: #### 2 85161 #### [facility],[address] [place] [address] 60622 Protein [Mass/Vol] 6.9 g/dL Normal 6.4 - 8.2 g/dL [facility] Comment on above: Performed By: #### 2 06038 #### [facility],[address] [place] [address] Sodium [Moles/Vol] 140 mmol/L Normal 136 - 145 mmol/L [facility] Comment on above: Performed By: #### 2 04118 #### [facility],[address] [place] [address] Urea nitrogen [Mass/Vol] 15 mg/dL Normal 7 - 18 mg/dL [facility] Comment on above: Performed By: #### 2 56842 #### [facility],[address] [place], [place] [address] CORONAVIRUS (SARS) ANTIGEN T ESTon 03-05-2023 EXTERNAL QC DONE? YES Normal [facility] Comment on above: Performed By: #### 2 21620 #### [place] [address] INTERNAL CONTROL PASS Normal [facility] Comment on above: Performed By: #### 2 15159 #### [facility],[address] [place] [address] SARS ANTIGEN Negative Normal NORMAL: NEGATIVE [facility] Comment on above: Performed By: #### 2 45127 #### [place] [address] SEND TO ? YES Normal [facility] Comment on above: Result Comment: SARS -CoV-2 THIS TEST IS BEING USED UNDER THE FDA EUA PROCEDURE. THIS ASSAY HAS BEEN VALIDATED AT [facility] FOR USE WITH NASAL AND NASOPHARYNGEAL SWAB SPECIMENS. INTERPRETIVE DATA TEST RESULTS SHOULD ALWAYS BE CONSIDERED IN THE CONTEXT OF CLINICAL OBSERVATIONS AND EPIDEMIOLOGICAL DATA IN MAKING FINAL DIAGNOSIS AND PATIENT MANAGEMENT DECISIONS. PATIENT MANAGEMENT SHOULD FOLLOW CURRENT CDC GUIDELINES. THE ROSA SARS ANTIGEN ANDRIA DOES NOT DIFFERENTIATE BETWEEN SARS-CoV & SARS-CoV-2. A POSITIVE TEST RESULT INDICATES THE PRESENCE OF SARS-CoV-2 NUCLEOCAPSID PROTEIN ANTIGEN, AND THE PATIENT IS INFECTED WITH THE VIRUS AND PRESUMED TO BE CONTAGIOUS. A NEGATIVE TEST RESULT FOR THIS TEST MEANS THAT SARS-CoV-2 NUCLEOCAPSID PROTEIN ANTIGEN WAS NOT PRESENT IN THE SPECIMEN ABOVE THE LIMIT OF DETECTION. HOWEVER, A NEGATIVE RESULT DOES NOT RULE OUT COVID-19 AND SHOULD NOT BE USED THE SOLE BASIS FOR TREATMENT OR PATIENT MANAGEMENT DECISIONS. A NEGATIVE RESULT DOES NOT EXCLUDE THE POSSIBILITY OF COVID-19. NEGATIVE RESULTS, FROM PATIENTS WITH SYMPTOM ONSET BEYOND FIVE DAYS, SHOULD BE TREATED PRESUMPTIVE AND CONFIRMATION WITH A MOLECULAR ASSAY, IF NECESSARY, FOR PATIENT MANAGEMENT, MAY BE PERFORMED. WHEN DIAGNOSTIC TESTING IS NEGATIVE, THE POSSIBLILTY OF A FALSE NEGATIVE RESULT SHOULD BE CONSIDERED IN THE CONTEXT OF A PATIENT'S RECENT EXPOSURES AND THE PRESENCE OF CLINICAL SIGNS AND SYMPTOMS CONSISTENT WITH COVID-19. THE POSSIBILITY OF A FALSE NEGATIVE RESULT SHOULD ESPECIALLY BE CONSIDERED IF THE PATIENT'S RECENT EXPOSURES OR CLINICAL PRESENTATION INDICATE THAT COVID-19 IS LIKELY, AND DIAGNOSTIC TESTS FOR OTHER CAUSES OF ILLNESS (e.g., OTHER RESPIRATORY ILLNESS) ARE NEGATIVE. IF COVID-19 IS STILL SUSPECTED BASED ON EXPOSURE HISTORY TOGETHER WITH OTHER CLINICAL FINDINGS, RE-TESTING SHOULD BE CONSIDERED BY HEALTHCARE PROVIDERS IN CONSULTATION WITH PUBLIC HEALTH AUTHORITIES. Performed By: #### 2 [id number] #### [place] [address] CT CHEST (PE PROTOCOL)on CT CHEST (PE PROTOCOL) [place] [address] Patient: RICCO ZARATE Phone#: : 1945 Age: 78 Gender: M Pt. Type: ER Account: [id number] Location: [facility] Ordering: ELIZABETH RODRÍGUZE Exam Date: 03/05/2023/12:15 Family Phys: SHAHLA BOWLES Charge Code: [id number] Physician: Christian Order #: [id number] Dose#: 9.1 mGy PROCEDURE: CT CHEST WITH CONTRAST FOR PE COMPARISON: None. INDICATIONS: Dyspnea. TECHNIQUE: After obtaining the patient's consent, CT images were obtained with non-ionic intravenous contrast material. Multi-planar images were created to optimize visualization of vascular anatomy with MPR/MIPS and 3D imaging. All CT scans at this facility use dose modulation, iterative reconstruction, and/or weight based dosing when appropriate to reduce radiation dose to as low as reasonably achievable. IV CONTRAST: Omnipaque 350,100ml TOTAL DOSE: 9.1 CTDIvol(mGy) FINDINGS: VASCULATURE: Normal. No visible pulmonary arterial thrombus or attenuation. AORTA: The ascending aorta is at upper limits of normal in size measuring 3.9 centimeters. No aneurysm or dissection. LUNGS: Chronic interstitial changes are present. There is mild ground-glass density the right upper lobe consistent with a Anastasiya versus pneumonitis. LIBERTY: Normal. No mass or adenopathy. MEDIASTINUM: Normal. No mass or adenopathy. CARDIAC: Normal. No enlargement, pericardial thickening, or significant calcification. PLEURA: Normal. No mass or effusion. CHEST WALL: Normal. No mass or axillary adenopathy. LIMITED ABDOMEN: Normal. Limited images of the upper abdomen are unremarkable. BONES: Degenerative changes of the spine are present. OTHER: Negative. CONCLUSION: 1. There is no evidence of pulmonary embolus. 2. Mild ground-glass density of the right upper lobe lobe consistent with edema versus pneumonitis. Continued Report - Page 2 of 2 Patient: RICCO ZARATE Phone#: : 1945 Age: 78 Gender: M Pt. Type: ER Account: [id number] Location: [facility] Ordering: ELIZABETH RODRÍGUEZ Exam Date: 03/05/2023/12:15 Family Phys: SHAHLA BOWLES Charge Code: [id number] Physician: Christian Order #: [id number] Dose#: 9.1 mGy Dictated by: Saida Duque MD on 03/05/2023 at 12:32 Approved by: Saida Duque MD on 03/05/2023 at 12:38 Normal [facility] CV ECHO [facility] CV ECHO [place] [address] Patient: RICCO ZARATE Phone#: : 1945 Age: 78 Gender: M Pt. Type: ER Account: [id number] Location: 010 Ordering: KELLEEER MELCHOR Exam Date: 03/05/202313:54 Family Phys: SHAHLA BOWLES Charge Code: [id number] Physician: Christian Order #: [id number] Dose#: PROCEDURE: ECHOCARDIOGRAM WITH DOPPLER AND COLOR FLOW HISTORY: Patient is a 78-year-old male with history of CHF INDICATIONS: CHF COMPARISON: None. TECHNIQUE: A 2-D ultrasound, color spectral Doppler and M-mode evaluation of the heart and great vessels. PATIENT MEASUREMENTS: Height (in.): 67 BSA: 2.15 Weight (lbs.): 215 BP: 180/118 Inspector Floor Sub Assembly: TY M MODE 2D MEASUREMENTS AND CALCULATIONS: LVIDd: 5.65 cm LVIDs: 4.44 cm IVSd: 1.1 cm LVPWd: 1.01 cm LVOT diam: 2.23 cm FS: 21.40 % Ao Root diam: 3.9 cm LA diam: 4.6 cm LA Volume Index: 46 ml/m2 LA A4 Area: 29.37 cm2 RA A4 Area: RVDd: 4.2 cm TAPSE: 21.7 mm DOPPLER MEASUREMENTS AND CALCULATIONS MITRAL MV E MAX gricelda: 0.39 m/s MV A MAX gricelda: 1.06 m/s MV E-A ratio: 0.37 MVA VTI 2.99 cm2 MV V2 max: 1.16 m/s MV max P.37 mm[Hg] MV V2 mean: 0.65 m/s Continued Report - Page 2 of 3 Patient: RICCO ZARATE Phone#: : 1945 Age: 78 Gender: M Pt. Type: ER Account: [id number] Location: 010 Ordering: SARA ROCHE Exam Date: 03/05/202313:54 Family Phys: SHAHLA BOWLES Charge Code: [id number] Physician: Christian Order #: [id number] Dose#: MV mean P.04 mm[Hg] MV V2 VTI: 19.38 cm MV PHT: 66.45 ms MVA PHT 3.31 cm2 Lat Peak E' Gricelda 6 cm/sec Septal Peak E' GRICELDA 4 cm/sec E/E' lateral 6.1 E/E' medial 10.7 AORTIC Ao V2 max: 1.75 m/s Ao max P.31 mm[Hg] Ao V2 mean: 1.20 m/s Ao mean P.69 mm[Hg] Ao V2 VTI: 33.31 cm ROSIE (V Max): 1.69 cm2 ROSIE (VTI): 1.74 cm2 AI max gricelda 5.05 m/s AI max PG 101.84 mm[Hg] AI dec Mclennan 3.74 m/s2 AI PHT 391.11 ms LV V1 Max 0.75 m/s LV V1 Max PG 2.28 mm[Hg] LV V1 Mean PG 1.39 mm[Hg] LV V1 mean 0.57 m/s LV V1 VTI 14.79 cm PULMONIC PA V2 Max 1.03 m/s PA Max PG 4.26 mm[Hg] TRICUSPID TR Max Gricelda TR max PG RVSP 2D/M-MODE AND COLOR FLOW LEFT VENTRICLE: There is mild concentric left ventricular hypertrophy. Left ventricle is normal in size. Systolic ejection fraction is 40-45% with mild diffuse hypokinesis of the left ventricle. WALL MOTION: 1 - Basal anterior: Hypokinetic. 7 - Mid anterior: Hypokinetic. 13 - Apical anterior: Hypokinetic. 2 - Basal anteroseptal: Hypokinetic. 8 - Mid anteroseptal: Hypokinetic. 14 - Apical septal: Hypokinetic. 3 - Basal inferoseptal: Hypokinetic. 9 - Mid inferoseptal: Hypokinetic. 15 - Apical inferior: Hypokinetic. 4 - Basal inferior: Hypokinetic. 10-Mid inferior: Hypokinetic. 16 - Apical lateral: Hypokinetic. Continued Report - Page 3 of 3 Patient: RICCO ZARATE Phone#: : 1945 Age: 78 Gender: M Pt. Type: ER Account: [id number] Location: [facility] Ordering: SARA ROCHE Exam Date: 03/05/202313:54 Family Phys: SHAHLA BOWLES Charge Code: [id number] Physician: Christian Order #: [id number] Dose#: 5 - Basal inferolateral: Hypokinetic. 11-Mid inferolateral: Hypokinetic. 6 - Basal anterolateral: Hypokinetic. 12-Mid anterolateral: Hypokinetic. RIGHT VENTRICLE: Right ventricle is normal in size and systolic function. LEFT ATRIUM: Left atrium is moderately enlarged. RIGHT ATRIUM: Right atrium is normal in size ATRIAL SEPTUM: Inadequately visualized MITRAL VALVE: Mitral valve appears normal in structure. There is trivial regurgitation and no stenosis seen. TRICUSPID VALVE: Tricuspid valve appears normal structure. There is trivial regurgitation and no stenosis seen AORTIC VALVE: Aortic valve is probably trileaflet. There is focal calcification seen in the right coronary cusp. There is mild regurgitation and no significant stenosis seen PULMONIC VALVE: Pulmonic valve appears normal in structure. There is no regurgitation or stenosis seen. AORTIC ROOT: Aortic root is enlarged at 3.9 cm AORTIC ARCH: Aortic arch is normal in size. DESC THORACIC AORTA: Descending aorta is inadequately visualized. Doppler shows no significant regurgitation or stenosis. IVC/SVC: Inadequately visualized. PULMONARY VEINS: Normal pulmonic vein flow PERICARDIUM: There is no pericardial effusion seen CONCLUSION: 1. There is mild concentric left ventricular hypertrophy. Left ventricle is normal in size. Systolic ejection fraction is 40-45% with mild diffuse hypokinesis of the left ventricle. 2. Left atrium is moderately enlarged. 3. Aortic valve is probably trileaflet. There is focal calcification seen in the right coronary cusp. There is mild regurgitation and no stenosis seen. 4. Aortic root is enlarged at 3.9 cm 5. Right ventricle is nor (more content not included)... Normal [facility] D-DIMER, QUANTITATIVEon 02-08 D-DIMER QUANT 1850 ng/ml Abnormal 0 - 230 ng/mL [facility] Comment on above: Performed By: #### 2 29926 #### [facility],[address] [place] [address] D-DIMER, QUANTITATIVE Normal [facility] Comment on above: Result Comment: GARRICK T D-DIMER Performed By: #### 2 99575 #### [facility],[address] [place] [address] Laboratory - Chemistry and C hemistry - challengeon 03-05-2023 Albumin [Mass/Vol] 0.7 g/dL Abnormal 0.9 - 1.6 [facility], [facility] Work Phone: GFR/1.73 sq M.predicted among blacks MDRD (S/P/Bld) [Vol rate/Area] mL/min/{1.73_m2} Normal 60 - 999 {ML/MINUTE} [facility] Work Phone: GFR/1.73 sq M.predicted MDRD (S/P/Bld) [Vol rate/Area] mL/min/{1.73_m2} Normal 60 - 999 {ML/MINUTE} [facility].; [facility]. Work Phone: Urea nitrogen (U) [Mass/Vol] 31.1 pg/mL Normal 0.0 - 76.2 pg/mL [facility].; [facility]. Work Phone: Urea nitrogen (U) [Mass/Vol] 1514 pg/mL Abnormal 0 - 450 pg/mL [facility].; [facility]. Work Phone: Urea nitrogen (U) [Mass/Vol] 34.9 pg/mL Normal 0.0 - 76.2 pg/mL [facility].; [facility]. Work Phone: Urea nitrogen (U) [Mass/Vol] 38.8 pg/mL Normal 0.0 - 76.2 pg/mL [facility].; [facility]. Work Phone: Urea nitrogen (U) [Mass/Vol] 40.3 pg/mL Normal 0.0 - 76.2 pg/mL [facility].; [facility]. Work Phone: Urea nitrogen/Creatinine [Mass ratio] 17 {ratio} Normal 0 - 30 {ratio} [facility].; [facility]. Work Phone: Laboratory - Hematology and Cell countson 03-05-2023 Basophils (Bld) [#/Vol] 0.00 {x10EE3/UL} Normal 0.00 - 0.10 {x10EE3/UL} [facility].; [facility] Work Phone: Eosinophils (Bld) [#/Vol] 0.10 {x10EE3/UL} Normal 0.00 - 0.50 {x10EE3/UL} [facility].; [facility] Work Phone: Lymphocytes (Bld) [#/Vol] 1.10 {x10EE3/UL} Normal 0.80 - 2.80 {x10EE3/UL} [facility].; [employer] [facility]. Work Phone: MCHC (RBC) [Mass/Vol] 34 {X10_3} Normal 32 - 3 6 {X10_3} [facility].; [facility] Work Phone: Monocytes (Bld) [#/Vol] 0.70 {x10EE3/UL} Normal 0.20 - 1.00 {x10EE3/UL} [facility].; [employer] [facility] Work Phone: Monocytes/100 WBC (Bld) 9.9 % Normal 0.0 - 10.0 % [facility]; [facility], [facility] Work Phone: Neutrophils (Bld) [#/Vol] 5.40 {x10EE3/UL} Normal 1.50 - 7.10 {x10EE3/UL} [facility]; [facility] Work Phone: Platelets (Bld) [#/Vol] 251 {x10EE3/UL} Normal 150 - 450 {x10EE3/UL} [facility].; [facility]. Work Phone: RBC (Bld) [#/Vol] 4.60 {x_10EE6/UL} Normal 4.50 - 6.00 {x_10EE6/UL} [facility].; [facility]. Work Phone: WBC (Bld) [#/Vol] 7.3 {x_10EE3/UL} Normal 4.5 - 10.8 {x_10EE3/UL} [facility].; [facility]. Work Phone: Laboratory - Microbiology an d Antimicrobial susceptibilityon 03-05-2023 SARS-CoV-2 (COVID-19) Ag IA.rapid Ql (Resp) Negative Normal [facility]; [facility]. Work Phone: NT-proBNPon 03-05-2023 Natriuretic peptide B (Bld) [Mass/Vol] 1514 pg/mL High 0 - 450 [facility] Comment on above: Performed By: #### 2 [id number] #### [facility],[address] [place] [address] No Panel Informationon 03-05 AGE 78 {years} Normal [facility].; [facility]. Work Phone: CBC + DIFF Normal [facility].; [facility]. Work Phone: CMP with eGFR Normal [facility] [facility]; [facility]. Work Phone: D-DIMER, QUANTITATIVE Normal [facility].; [facility], [facility]. Work Phone: Observation duration PASS Normal [facility], [facility]. Work Phone: Observation duration YES Normal [facility] Work Phone: TROPONIN I, HIGH SENSITIVITY on 03-05-2023 HS TROPONIN 38.8 pg/mL Normal 0.0 - 76.2 [facility] Comment on above: Performed By: #### [id number] #### [facility],[address] [place] [address] HS TROPONIN 34.9 pg/mL Normal 0.0 - 76.2 [facility] Comment on above: Performed By: #### [id number] #### [facility],[address] [place] [address] HS TROPONIN 31.1 pg/mL Normal 0.0 - 76.2 [facility] Comment on above: Performed By: #### [id number] #### [facility],[address] [place] [address] Laboratory - Chemistry and C hemistry - challengeon 02-02-2015 Albumin BCP dye [Mass/Vol] 3.8 g/dL Normal 3.2 - 4.8 g/dL [facility]; [facility], [facility]. Albumin/Globulin [Mass ratio] 1.1 {ratio} Normal 0.9 - 1.6 [facility]; [facility], [facility]. ALP [Catalytic activity/Vol] 70 U/L Normal 38 - 126 U/L [facility], [facility]. ALT No additional P-5'-P [Catalytic activity/Vol] 25 U/L Normal 12 - 55 U/L [facility] ALT With P-5'-P [Catalytic activity/Vol] 25 U/L Normal 12 - 55 U/L [facility] AST [Catalytic activity/Vol] 15 U/L Normal 8 - 34 U/L [facility] AST With P-5'-P [Catalytic activity/Vol] 15 U/L Normal 8 - 34 U/L [facility] Bilirubin [Mass/Vol] 0.2 mg/dL Normal 0.2 - 1 .2 mg/dL [facility]; [facility] Calcium [Mass/Vol] 9.3 mg/dL Normal 8.4 - 10. 1 mg/dL [facility]; [facility] Chloride [Moles/Vol] 107 mmol/L Normal 98 - 11 0 meq/L [facility] Cholesterol [Mass/Vol] 189 mg/dL Normal 50 - 199 mg/dL [facility]; [facility] Cholesterol in HDL [Mass/Vol] 40 mg/dL Normal 40 - 59 mg/dL [facility]; [facility] Cholesterol in LDL [Mass/Vol] 90 mg/dL Normal 0 - 129 mg/dL [facility]; [facility] CO2 [Moles/Vol] 29 mmol/L Normal 22 - 32 meq/L [facility] Creatinine [Mass/Vol] 0.81 mg/dL Normal 0.60 - 1.40 mg/dL [facility], [facility]. GFR/1.73 sq M.predicted among blacks MDRD (S/P/Bld) [Vol rate/Area] mL/min/{1.73_m2} Normal [facility]; [facility]CH[facility] Work Phone: GFR/1.73 sq M.predicted among non-blacks MDRD (S/P/Bld) [Vol rate/Area] mL/min/{1.73_m2} Normal [facility] Hospital[facility]; [facility] Work Phone: Globulin (S) [Mass/Vol] 3.4 g/dL Normal 1.5 - 3.8 g/dL [facility] Hospital[facility]; [facility] Glucose [Mass/Vol] 112 mg/dL Normal 82 - 115 mg/dL [facility] Potassium [Moles/Vol] 4.6 mmol/L Normal 3.5 - 5.0 meq/L [facility] Protein [Mass/Vol] 7.2 g/dL Normal 6.0 - 8.5 g/dL [facility] Hospital[facility].; [facility] Sodium [Moles/Vol] 141 mmol/L Normal 136 - 145 meq/L [facility].; [facility] Triglyceride [Mass/Vol] 294 mg/dL Abnormal 3 - 149 mg/dL [facility] Hospital[facility].; [facility] Urea nitrogen [Mass/Vol] 16.0 mg/dL Normal 8.0 - 22.0 mg/dL [facility] Hospital[facility].; [facility] Urea nitrogen/Creatinine [Mass ratio] 19.8 mg/mg Normal 10.0 - 22.0 [facility] HospitalR[facility].; [facility], [facility] No Panel Informationon 02-02 Electrolyte Balance 5.0 meq/L Normal 4.0 - 15 .0 meq/L [facility].; [facility], [facility] Vital Signs Date Time Vital Sign Value Performing Clinician Chino sandoval 09-22-2024 07:32-0400 Body height 170.18 cm Gema TRAYLOR Work Phone: [facility] 09-22-2024 07:32-0400 Body mass index (BMI) [Ratio] 32.7 kg/m2 Gema Gr NUCLEAR MEDICINE SUPERVISOR-C Work Phone: [facility] 09-22-2024 07:32-0400 Body weight 94.8 kg Gema Gr NUCLEAR MEDICINE SUPERVISOR-C Work Phone: [facility] 09-22-2024 07:32-0400 Diastolic blood pressure 79 mm[Hg] Gema Gr NUCLEAR MEDICINE SUPERVISOR-C Work Phone: [facility] 09-22-2024 07:32-0400 Heart rate 74 /min Gema Gr NUCLEAR MEDICINE SUPERVISOR-C Work Phone: [facility] 09-22-2024 07:32-0400 Respiratory rate 18 /min Gema Gr NUCLEAR MEDICINE SUPERVISOR-C Work Phone: [facility] 09-22-2024 07:32-0400 SaO2% (BldA) [Mass fraction] 93 % Gema Gr NUCLEAR MEDICINE SUPERVISOR-C Work Phone: [facility] 09-22-2024 07:32-0400 Systolic blood pressure 106 mm[Hg] Gema Gr NUCLEAR MEDICINE SUPERVISOR-C Work Phone: [facility] 04-28-2024 09:04-0500 Body height 168.91 cm Romina Oh [facility], [facility].; [facility]. 04-28-2024 09:04-0500 Body mass index (BMI) [Ratio] 33.07 kg/m2 Romina Oh [facility] HospitalR[facility].; [facility]. 04-28-2024 09:04-0500 Body surface area Derived from formula 2.05 m2 Romina Oh [facility], [facility].; [facility], [facility]. 04-28-2024 09:04-0500 Body temperature 97.5 [degF] Romina Oh [facility] HospitalR[facility].; [facility]. Comment on above: Method: Oral 04-28-2024 09:04-0500 Body weight 94.35 kg Romina Oh [facility].; [facility], Inc. 04-28-2024 09:04-0500 Diastolic blood pressure 80 mm[Hg] Romina Oh [facility] HospitalReverb Technologies Inc.; [facility] CenterR[facility] Technologies Inc. Comment on above: Patient Position: Sitting; Cuff Location : Left Arm; Cuff Size: Standard 04-28-2024 09:04-0500 Heart rate 90 /min Romina Oh [facility]Med[facility].; [facility] [employer] [facility] Healthcare[facility]. Comment on above: Pattern: Regular 04-28-2024 09:04-0500 Systolic blood pressure 121 mm[Hg] Romina Oh [facility] HospitalR[facility] Technologies Inc.; [facility] [employer] [facility] HealthcareR[facility]b Technologies Inc. Comment on above: Patient Position: Sitting; Cuff Location : Left Arm; Cuff Size: Standard 10-02-2023 08:59-0400 Body height 168.91 cm [facility], [employer].; [facility] CENTERUbiquisys [facility], [facility] 10-02-2023 08:59-0400 Body mass index (BMI) [Ratio] 31.96 kg/m2 [facility], [employer].; [facility] CenterR[facility] Technologies Inc. 10-02-2023 08:59-0400 Body surface area Derived from formula 2.02 m2 [facility] CenterR[facility].; [facility], [facility]. 10-02-2023 08:59-0400 Body weight 91.17 kg Menard OverhPied[facility] EDMedstro.; [facility], Inc[facility] 10-02-2023 08:59-0400 Diastolic blood pressure 60 mm[Hg] Gema Overholt [facility] Pack[employer] Bee[facility] HealthcareReverb Technologies Inc.; [place] [employer] [facility] PackLink Bee[facility] HealthcareReverb Technologies Inc. Comment on above: Patient Position: Sitting; Cuff Location : Left Arm; Cuff Size: Standard 10-02-2023 08:59-0400 Heart rate 84 /min Gema Overholt [facility] [facility], Inc.; [employer] [facility] [employer] [facility], [facility]. Comment on above: Pattern: Regular 10-02-2023 08:59-0400 Systolic blood pressure 94 mm[Hg] Gema Overholt [facility] CenterGeniusMatcher [facility], Inc.; [employer] [facility] [employer] [facility], Inc. Comment on above: Patient Position: Sitting; Cuff Location : Left Arm; Cuff Size: Standard 04-20-2023 14:25-0500 Body height 168.91 cm Gema Overholt [facility], Inc.; [employer] [facility], Inc. 04-20-2023 14:25-0500 Body mass index (BMI) [Ratio] 33.07 kg/m2 Gema Overht [facility] [facility], Inc.; [employer] [facility], Inc. 04-20-2023 14:25-0500 Body surface area Derived from formula 2.05 m2 Menard Overholt [facility] [facility], Inc.; [place] [employer] [facility], Inc. 04-20-2023 14:25-050 Body weight 94.35 kg Menard Overholt [facility], Inc.; [facility] CENTERUbiquisys AFOGNAK [employer] [facility] [employer] [facility], Inc. 04-20-2023 14:25-0500 Diastolic blood pressure 68 mm[Hg] Gema Overholt [facility] [facility], Inc.; [employer] [facility] [employer] [facility], Inc. Comment on above: Patient Position: Sitting; Cuff Location : Left Arm; Cuff Size: Standard 04-20-2023 14:25-0500 Heart rate 89 /min Gema Overholt [facility] [employer] [facility], Inc.; [employer] [facility] [employer] [facility], Inc. Comment on above: Pattern: Regular 04-20-2023 14:25-0500 Inhaled oxygen concentration 21 % [facility] [employer] [facility], Inc.; [employer] [facility] [employer] [facility], Inc. Comment on above: Room air 04-20-2023 14:25-0500 SaO2% (BldA) [Mass fraction] 96 % [facility], [employer].; [facility], [employer]. 04-20-2023 14:25-0500 Systolic blood pressure 102 mm[Hg] [facility], Inc.; [facility], Inc. Comment on above: Patient Position: Sitting; Cuff Location : Left Arm; Cuff Size: Standard 04-05-2023 14:25-0500 Body height 168.91 cm Natalie Acevedo RN [facility], Inc.; [facility], Inc. 04-05-2023 14:25-0500 Body mass index (BMI) [Ratio] 33.39 kg/m2 Natalie Acevedo RN [facility], Inc.; [facility], Inc. 04-05-2023 14:25-0500 Body surface area Derived from formula 2.05 m2 Natalie Acevedo RN [facility], [facility].; [facility], Inc. 04-05-2023 14:25-0500 Body weight 95.26 kg Natalie Acevedo RN [facility], [facility].; [facility], Inc. 04-05-2023 14:25-0500 Diastolic blood pressure 81 mm[Hg] Natalie Acevedo RN [facility], Inc.; [facility], [employer]. Comment on above: Patient Position: Sitting; Cuff Location : Left Arm; Cuff Size: Large 04-05-2023 14:25-0500 Heart rate 50 /min Natalie Acevedo RN [facility], Inc.; [employer] [facility] [facility], [employer]. Comment on above: Pattern: Regular 04-05-2023 14:25-0500 Systolic blood pressure 127 mm[Hg] Natalie Acevedo RN [facility], Inc.; [facility] [facility], [employer]. Comment on above: Patient Position: Sitting; Cuff Location : Left Arm; Cuff Size: Large 03-15-2023 15:25-0500 Body height 168.91 cm Mariana Osorio RN [facility], [facility].; [facility]. 03-15-2023 15:25-0500 Body mass index (BMI) [Ratio] 33.29 kg/m2 Mariana Osorio RN [facility]. 03-15-2023 15:25-0500 Body surface area Derived from formula 2.05 m2 Mariana Osorio RN [facility].; [facility]. 03-15-2023 15:25-0500 Body weight 94.97 kg Mariana Osorio RN [facility].; [facility]. 03-15-2023 15:25-0500 Diastolic blood pressure 74 mm[Hg] Mariana Osorio RN [facility]. Comment on above: Patient Position: Sitting; Cuff Location : Left Arm; Cuff Size: Large 03-15-2023 15:25-0500 Heart rate 81 /min Mariana Osorio RN [facility].; [facility]. Comment on above: Pattern: Regular 03-15-2023 15:25-0500 Systolic blood pressure 119 mm[Hg] Mariana Osorio RN [facility].; [facility]. Comment on above: Patient Position: Sitting; Cuff Location : Left Arm; Cuff Size: Large 03-07-2023 13:13-0500 Diastolic Blood Pressure Non-Invasive 74 mm[Hg] TY WEEMS MD [facility] 03-07-2023 13:13-0500 Heart rate 88 /min TY WEEMS MD [facility] 03-07-2023 13:13-0500 Mean blood pressure 89 mm[Hg] TY WEEMS MD [facility] 03-07-2023 13:13-0500 Reason For Taking VItal Signs TY WEEMS MD [facility] 03-07-2023 13:13-0500 Systolic Blood Pressure Non-Invasive 123 mm[Hg] TY WEEMS MD [address] [place] [address] 03-07-2023 12:12-0500 Diastolic Blood Pressure Non-Invasive 63 mm[Hg] TY WEEMS MD [address] [place] [address] 03-07-2023 12:12-0500 Heart rate 90 /min TY WEEMS MD [address] [place] [address] 03-07-2023 12:12-0500 Mean blood pressure 73 mm[Hg] TY WEEMS MD [address] [place] [address] 03-07-2023 12:12-0500 Reason For Taking VItal Signs TY WEEMS MD [address] [place] [address] 03-07-2023 12:12-0500 Systolic Blood Pressure Non-Invasive 115 mm[Hg] TY WEEMS MD [address] [place] [address] 03-07-2023 11:42-0500 Diastolic Blood Pressure Non-Invasive 59 mm[Hg] TY WEEMS MD [address] [place] [address] 03-07-2023 11:42-0500 Heart rate 98 /min TY WEEMS MD [address] [place] [address] 03-07-2023 11:42-0500 Mean blood pressure 75 mm[Hg] TY WEEMS MD [address] [place] [address] 03-07-2023 11:42-0500 Reason For Taking VItal Signs TY WEEMS MD [address] [place] [address] 03-07-2023 11:42-0500 Systolic Blood Pressure Non-Invasive 122 mm[Hg] TY WEEMS MD [address] [place] [address] 03-07-2023 10:40-0500 Blood Pressure Cuff Size TY WEEMS MD [address] 03-07-2023 10:40-0500 Blood Pressure Location TY WEEMS MD [address] [place] [address] 03-07-2023 10:40-0500 Blood Pressure Method TY WEEMS MD [address] [place] [address] 03-07-2023 10:40-0500 Body temperature 98.24 [degF] TY WEEMS MD [address] [place] [address] 03-07-2023 10:40-0500 Respiratory rate 17 /min TY WEEMS MD [address] [place] [address] 03-07-2023 07:08-0500 Blood Pressure Cuff Size TY WEEMS MD [address] [place] [address] 03-07-2023 07:08-0500 Blood Pressure Location TY WEEMS MD [address] [place] [address] 03-07-2023 07:08-0500 Blood Pressure Method TY WEEMS MD [address] [place] [address] 03-07-2023 07:08-0500 Body temperature 98.78 [degF] TY WEEMS MD [address] [place] [address] 03-07-2023 07:08-0500 Respiratory rate 16 /min TY WEEMS MD [address] [place] [address] 03-07-2023 04:45-0500 Blood Pressure Cuff Size TY WEEMS MD [address] [place] [address] 03-07-2023 04:45-0500 Blood Pressure Location TY WEEMS MD [address] [place] [address] 03-07-2023 04:45-0500 Blood Pressure Method TY WEEMS MD [address] [place] [address] 03-07-2023 04:45-0500 Body temperature 98.6 [degF] TY WEEMS MD [address] [place] [address] 03-07-2023 04:45-0500 Respiratory rate 17 /min TY WEEMS MD [address] [place] [address] 03-06-2023 14:03-0500 Body height 170.2 cm TY WEEMS MD [facility] 03-06-2023 14:030500 Body weight 97.5 kg TY WEEMS MD [facility] 03-06-2023 14:030500 Body weight 33.66 kg/m2 TY WEEMS MD [facility] 02-24-2021 13:30-0500 Body height 168.91 cm Natalie Acevedo RN [facility], Inc.; [facility] Inc. 02-24-2021 13:30-0500 Body mass index (BMI) [Ratio] 32.59 kg/m2 Natalie Acevedo RN [facility], [employer].; [facility], Inc. 02-24-2021 13:30-0500 Body surface area Derived from formula 2.03 m2 Natalie Acevedo RN [facility], Inc.; [facility], Inc. 02-24-2021 13:30-0500 Body weight 92.99 kg Natalie Acevedo RN [facility], [employer].; [facility], Inc. 02-24-2021 13:30-0500 Diastolic blood pressure 93 mm[Hg] Natalie Acevedo RN [facility], [facility].; [facility], [employer]. Comment on above: Patient Position: Sitting; Cuff Location : Left Arm; Cuff Size: Large 02-24-2021 13:30-0500 Heart rate 81 /min Ntaalie Acevedo RN [facility], Inc.; [employer] [facility] [employer] [facility] Healthcare[facility]. Comment on above: Pattern: Regular 02-24-2021 13:30-0500 Systolic blood pressure 172 mm[Hg] Natalie Acevedo RN [facility], [facility].; [facility] [facility], [employer] Comment on above: Patient Position: Sitting; Cuff Location : Left Arm; Cuff Size: Large 02-11-2020 13:25-0500 Body height 168.91 cm CHARLA CHATMAN Work Phone: [facility] HospitalLife[facility]; [facility]. 02-11-2020 13:25-0500 Body mass index (BMI) [Ratio] 31.32 kg/m2 CHARLA QUIJANOER DIALYSIS REGISTERED NURSE-C Work Phone: [facility].; [facility]. 02-11-2020 13:25-0500 Body surface area Derived from formula 2 m2 CHARLA MUNSONTTER DIALYSIS REGISTERED NURSE-C Work Phone: [facility] [facility] HealthcareLifeNexus; [facility]. 02-11-2020 13:25-0500 Body temperature 98.1 [degF] CHARLA MUNSONTTER DIALYSIS REGISTERED NURSE-C Work Phone: [facility] [facility] HealthcareLifeNexus; [facility]. Comment on above: Method: Oral 02-11-2020 13:25-0500 Body weight 89.36 kg CHARLA MUNSONTTER DIALYSIS REGISTERED NURSE-C Work Phone: [facility] Bee[facility] HealthcareLifeNexus; [facility]. 02-11-2020 13:25-0500 Diastolic blood pressure 71 mm[Hg] CHARLA MUNSONTTER DIALYSIS REGISTERED NURSE-C Work Phone: [facility] Bee[facility] HealthcareLifeNexus; [facility]. Comment on above: Patient Position: Sitting; Cuff Location : Left Arm; Cuff Size: Standard 02-11-2020 13:25-0500 Heart rate 96 /min CHARLA QUIJANOER DIALYSIS REGISTERED NURSE-C Work Phone: [facility] Bee[facility] HealthcareLifeNexus; [employer] [facility] HealthcareMedstro. Comment on above: Pattern: Regular 02-11-2020 13:25-0500 Inhaled oxygen concentration 21 % CHARLA MONTAGUETETTER DIALYSIS REGISTERED NURSE-C Work Phone: [facility] Bee[facility] HealthcareLifeNexus; [place] [employer] [facility]. Comment on above: Room air 02-11-2020 13:25-0500 SaO2% (BldA) [Mass fraction] 93 % CHARLA CROOKS DIALYSIS REGISTERED NURSE-C Work Phone: [facility] [employer] [facility] HealthcareMedstro.; [employer] [facility] [employer] [facility] HealthcareMedstro. 02-11-2020 13:25-0500 Systolic blood pressure 101 mm[Hg] CHARLA CROOKS DIALYSIS REGISTERED NURSE-C Work Phone: [facility] [employer] [facility] HealthcareMedstro.; [employer] [facility] [employer] [facility] HealthcareMedstro. Comment on above: Patient Position: Sitting; Cuff Location : Left Arm; Cuff Size: Standard 02-02-2015 14:43-0400 Body height 168.[address] [facility] [employer] [facility] HealthcareMedstro.; [employer] [facility] [employer] [facility] HealthcareMed[facility]. 02-02-2015 14:43-0400 Body mass index (BMI) [Ratio] 32.91 kg/m2 NELDA [facility] [employer] [facility] HealthcareMedstro.; [employer] [facility]. 02-02-2015 14:43-0400 Body surface area Derived from formula 2.[address] [facility] [employer] [facility] HealthcareMedstro.; [employer] [facility] [employer] [facility] HealthcareMed[facility]. 02-02-2015 14:43-0400 Body weight 93.9 kg NELDA [facility] NHRMCMedstro.; [employer] [facility] [employer] [facility] HealthcareMed[facility]. 02-02-2015 14:43-0400 Diastolic blood pressure 87 mm[Hg] NELDA [facility] [employer] [facility] HealthcareMedstro.; [employer] [facility] [facility] HealthcareMedstro. Comment on above: Patient Position: Sitting; Cuff Location : Left Arm; Cuff Size: Standard 02-02-2015 14:43-0400 Heart rate 85 /min NELDA [facility] [employer] [place]. Comment on above: Pattern: Regular 02-02-2015 14:43-0400 Systolic blood pressure 124 mm[Hg] NELDAMobiVitaOhioHealth [facility] [place] [address] [employer] [facility] [employer] Comment on above: Patient Position: Sitting; Cuff Location : Left Arm; Cuff Size: Standard Encounters Encounter Date Encounter Type Care Provider Facility Start: 09-22-2024 End: 09-22-2024 ambulatory Gema Gr NUCLEAR MEDICINE SUPERVISOR-C Work Phone: [facility] Work Phone: Start: 09-22-2024 End: 09-22-2024 Patient encounter procedure Marcia Taylor NUCLEAR MEDICINE SUPERVISORCherriC -[facility] Work Phone: Start: 04-28-2024 End: 04-28-2024 Office outpatient visit 10 minutes MARICEL SANDERS DIALYSIS REGISTERED NURSE-C Work Phone: Modify Start: 04-28-2024 Review MARICEL CONCEPCION CH DIALYSIS REGISTERED NURSE-C Work Phone: [facility] Start: 02-27-2024 End: 02-27-2024 ambulatory Gema Gr Facility:[facility] Start: 02-27-2024 End: 02-27-2024 ambulatory Gema Gr Facility:[facility] Start: 01-23-2024 End: 01-23-2024 ambulatory EMILEE KANGS Facility:[id number] Start: 10-30-2023 End: 10-30-2023 Historical Summary GEMA GR DIALYSIS REGISTERED NURSE-BC Work Phone: [facility] Start: 10-30-2023 ambulatory Marcia Otti ty:[facility] Start: 10-29-2023 ambulatory Niranjan Avel Facility:[facility] Start: 10-29-2023 End: 10-29-2023 ambulatory Niranjan Avel Facility:[facility] Start: 10-26-2023 ambulatory Gema Gr Facility:[facility] Start: 10-26-2023 End: 10-26-2023 ambulatory Niranjan Avel Facility:[facility] Start: 10-09-2023 End: 10-09-2023 ambulatory Niranjan Avel Facility:[facility] Start: 10-09-2023 End: 10-09-2023 ambulatory Niranjan Avel Facility:[facility] Start: 10-02-2023 End: 10-02-2023 Office outpatient visit 10 minutes GEMA GR DIALYSIS REGISTERED NURSE-BC [facility] Start: 10-02-2023 Review GEMA GR FN P-BC [facility] Start: 09-18-2023 Review CHARLA HARTLEY DIALYSIS REGISTERED NURSE-C [facility] Phone: [facility] Start: 08-08-2023 End: 08-08-2023 ambulatory Niranjan Avel Facility:[facility] Start: 06-15-2023 End: 06-15-2023 ambulatory VONDA BENNETT [facility] Start: 05-07-2023 End: 05-07-2023 ambulatory VONDA BENNETT [facility] Start: 05-04-2023 End: 05-04-2023 ambulatory VONDA BENNETT [facility] Start: 04-20-2023 End: 04-20-2023 Office outpatient visit 10 minutes CHARLA CROOKS DIALYSIS REGISTERED NURSE-C Work Phone: [facility] [employer]. Start: 04-13-2023 End: 04-13-2023 ambulatory SHAHLA Jf [facility] Start: 04-13-2023 End: 04-13-2023 Lab Only CHARLA CROOKS DIALYSIS REGISTERED NURSE-C Work Phone: [facility] [employer] [facility] Start: 04-12-2023 End: 04-16-2023 Results Review CHARLA CROOKS DIALYSIS REGISTERED NURSE-C Work Phone: [facility] [employer] [facility] Start: 04-12-2023 Review CHARLA MUNSON TTJAYLIN DIALYSIS REGISTERED NURSE-C Work Phone: [facility] [employer] [facility] Start: 04-12-2023 End: 04-12-2023 Lab Only CHARLA CROOKS DIALYSIS REGISTERED NURSE-C Work Phone: [facility] Start: 04-11-2023 End: 04-11-2023 ambulatory SHAHLA Rhoades [facility] Start: 04-05-2023 End: 04-05-2023 Office outpatient visit 10 minutes CHARLA CROOKS DIALYSIS REGISTERED NURSE-C Work Phone: [facility] Start: 04-04-2023 End: 04-04-2023 ambulatory VONDA BENNETT [facility] Start: 03-16-2023 End: 03-16-2023 ambulatory VONDA BENNETT [facility] Start: 03-16-2023 End: 03-16-2023 Medication Refill/Order CHARLA CROOKS DIALYSIS REGISTERED NURSE-C Work Phone: [facility] Start: 03-15-2023 End: 03-15-2023 Office outpatient visit 10 minutes CHARLA CROOKS DIALYSIS REGISTERED NURSE-C Work Phone: [facility] Start: 03-06-2023 End: 03-07-2023 Evaluation and management of inpatient TY WEEMS MD Facility:A Start: 03-06-2023 End: 03-07-2023 Evaluation and management of inpatient TY WEEMS MD [facility] Start: 03-05-2023 End: 03-06-2023 Evaluation and management of inpatient SARA BENNETT [facility] Start: 12-07-2021 End: 12-07-2021 ambulatory [facility] Work Phone: Start: 12-07-2021 End: 12-07-2021 Patient encounter procedure [facility] Start: 02-24-2021 End: 02-24-2021 Office outpatient visit 10 minutes CHARLA CROOKS DIALYSIS REGISTERED NURSE-C Work Phone: [facility] Start: 02-11-2020 End: 02-11-2020 Office outpatient visit 10 minutes CHARLA CROOKS DIALYSIS REGISTERED NURSE-C Work Phone: [facility] Start: 02-03-2015 End: 02-03-2015 Results Review CHARLA CROOKS DIALYSIS REGISTERED NURSE-C [facility] Start: 02-02-2015 End: 02-02-2015 Office outpatient visit 25 minutes CHARLA CROOKS DIALYSIS REGISTERED NURSE-C Work Phone: [facility] Start: 02-02-2015 End: 02-02-2015 Patient encounter status CHARLA CROOKS DIALYSIS REGISTERED NURSE-C [facility] Phone: [facility] Patient encounter status CHARLA CROOKS DIALYSIS REGISTERED NURSE-C Work Phone: [facility]; [facility] Procedures Date Procedure Procedure Detail Performing Clinician Start: 04-28-2024 End: 04-28-2024 Dischrg meds reconciled w/current med list MARICEL SANDERS DIALYSIS REGISTERED NURSE-C Work Phone: Start: 10-30-2023 End: 10-30-2023 Cardiac Echo GEMA GR DIALYSIS REGISTERED NURSE-BC Work Phone: Comment on above: EF 60%; Tiny PFO; Mo derately dilated aortic root Start: 10-02-2023 End: 10-02-2023 Dischrg meds reconciled w/current med list GEMA GR DIALYSIS REGISTERED NURSE-BC Work Phone: Start: 04-05-2023 End: 04-05-2023 Dischrg meds reconciled w/current med list SHAHLA BOWLES MD Work Phone: Start: 03-15-2023 End: 03-15-2023 Dischrg meds reconciled w/current med list SHAHLA BOWLES MD Work Phone: Start: 12-07-2021 MRI of joint of lowe r extremity Start: 02-11-2020 End: 02-11-2020 Dischrg meds reconciled w/current med list CHARLA MUNSONNAEEM DIALYSIS REGISTERED NURSE-C Work Phone: Start: 02-11-2020 End: 02-11-2020 Urinary Incontinence Gema Shrestha CMA Comment on above: Negative. Start: 02-02-2015 End: 02-02-2015 Adacel Gema Shrestha CMA Start: 04-09-2002 Bilateral inguinal h ernia repair TY WEEMS MD Start: 04-09-1992 Tear meniscus (finding) TY WEEMS MD Arthroscopic knee operation CHARLA Pearl TYRELGHADANAEEM DIALYSIS REGISTERED NURSE-C Work Phone: Comment on above: Paula Arthroscopic knee operation CHARLA CROOKS DIALYSIS REGISTERED NURSE-C Work Phone: Comment on above: Paula Arthroscopic knee operation Gema Shrestha CMA Comment on above: Paula Arthroscopic knee operation Romina COLLIER Comment on above: Paula Lithotripsy CHARLA Pearl MOUNIKA SAINZ DIALYSIS REGISTERED NURSE-C Work Phone: Comment on above: in . Lithotripsy CHARLA DAVIS RIYA DIALYSIS REGISTERED NURSE-C Work Phone: Comment on above: in . Lithotripsy Gema Chavira MA Comment on above: in . Lithotripsy Romina COLLIER Comment on above: in . Repair of inguinal hernia WH KARON Pearl TYRELGHADANAEEM DIALYSIS REGISTERED NURSE-C Work Phone: Comment on above: Bilateral. Israel Reddy er, x2. Repair of inguinal hernia MARY KARON MONTAGUEZAINABER DIALYSIS REGISTERED NURSE-C Work Phone: Comment on above: Bilateral. Israel Mill er, x2. Repair of inguinal hernia Da alex Shrestha CMA Comment on above: Bilateral. Israel Mill er, x2. Repair of inguinal hernia Jessa COLLIER Comment on above: Bilateral. Israel Reddy er, x2. Plan of Treatment Date Care Activity Detail Author Start: 04-28-2024 FQ visit, estab pt Medical; ESTABLISHED PATIENT ROUTINE VISIT - former gema [employer]. Start: 28-Apr-2024 09:00-05:00 COMPA SANDERS Appointment Request [facility] [employer]. Start: 10-02-2023 Medical; ESTABLISHED PATIENT ROUTINE VISIT - med refill Medical; ESTABLISHED PATIENT ROUTINE VISIT - [facility] Start: 02-Oct-2023 13:45-04:00 TISHA GR GEMA R [facility] [employer] [facility] [address] [employer]. Start: 10-02-2023 Medical; ESTABLISHED PATIENT ROUTINE VISIT - med refill pt said they had switched to Gema as primary doctor Medical; ESTABLISHED PATIENT ROUTINE VISIT - med refill pt said they had switched to Gema as primary doctor [employer]. Start: 02-Oct-2023 13:45-04:00 TISHA GR GEMA R Appointment Request [employer] Start: 04-13-2023 Antibody borrelia burgdorferi lyme disease [facility]; [employer]. Start: 04-05-2023 Radex ankle complete minimum 3 views X-RAY ANKLE, 3 VIEWS ([id number]) Start: 05-Apr-2023 Intent Comments: right [employer]. Comment on above: right Start: 04-05-2023 Radiologic exam knee complete 4/more views X-RAY KNEE BILATERAL ([id number]) Start: 05-Apr-2023 Intent [employer]. Basic metabolic 2008 panel with ionized calcium - Serum or Plasma [facility] CBC W Auto Different ial panel - Blood [facility] Immunizations Immunization Date Immunization Notes Care Provider Maxi tran 02-02-2015 tetanus toxoid, redu dipak diphtheria toxoid, and acellular pertussis vaccine, adsorbed CHARLA CHATMAN Work Phone: [facility] Comment on above: Site: Deltoid (Left) 02-02-2015 *IMMUNIZATION ADMIN ([id number]) CHARLA CROOKS DIALYSIS REGISTERED NURSE-C Work Phone: [facility]; [facility] influenza virus vaccine, unspecified formulation CHARLA CROOKS DIALYSIS REGISTERED NURSE-C Work Phone: [facility]; [facility] Comment on above: Refused. 02/11/2020 influenza virus vaccine, unspecified formulation CHARLA CROOKS DIALYSIS REGISTERED NURSE-C Work Phone: [facility]; [facility] Comment on above: Refused. 02/11/2020 influenza virus vaccine, unspecified formulation GEMA GR DIALYSIS REGISTERED NURSE- Work Phone: [facility]; [facility] Comment on above: Refused. 02/11/2020 influenza virus vaccine, unspecified formulation MARICEL SANDERS DIALYSIS REGISTERED NURSE-C Work Phone: [facility]; [facility] Comment on above: Refused. 02/11/2020 Payers Date Payer Category Payer Self-pay 2023 Unknown [id number] 2023 Unknown DENOMINATIONAL 1945 Unknown [id number] 2.16.8 [id number] 1945 Unknown [id number] 2.16.8 [id number] 1945 Unknown [id number] 2.16.8 40.1.932321.3.579.2.651 1945 Unknown [id number] 2.16.8 40.1.885062.3.579.2.651 1945 Unknown [id number] 2.16.8 40.1.076448.3.579.2.651 1945 Unknown [id number] 2.16.8 40.1.726009.3.579.2.651 1945 Unknown [id number] 2.16.8 40.1.914833.3.579.2.651 1945 Unknown [id number] 2.16.8 40.1.781011.3.579.2.651 Unknown Unknown 48-1 Unknown [id number] 2.16.8 40.1.596156.3.579.2.462 Unknown [id number] 2.16.8 40.1.318923.3.579.2.462 Unknown [id number] 2.16.8 40.1.252790.3.579.2.462 Unknown [id number] 2.16.8 40.1.413086.3.579.2.462 Unknown [id number] 2.16.8 40.1.235343.3.579.2.462 Unknown [id number] 2.16.8 40.1.061213.3.579.2.462 Unknown [id number] 2.16.8 40.1.057431.3.579.2.462 Unknown [id number] 2.16.8 40.1.613681.3.579.2.462 Unknown [id number] 2.16.8 40.1.405048.3.579.2.462 Unknown [id number] 2.16.8 [id number] Social History Date Type Detail Facility [facility] if ever smoked [facility] Work Phone: Start: 1945 Sex Assigned At Male [facility] Start: 03-06-2023 End: 08-08-2023 Tobacco smoking status Never smoked tobacco (finding) [facility] Sex Assigned At Sex [facility] Alcohol Use: Alcohol Use: ; N o Alcohol Use. [facility] Highest Education [employer]da Attained: Highest Education Level Attained: ; Less than high school. [facility]; [facility] Marital status: Marital status: ; . [facility] Most Recent Primary Occupation Most Recent Primary Occupation [facility] Tobacco use: Tobacco use: ; N ever smoker. [facility]; [facility] Less than high school [facility]; [facility] Work Phone: [facility] Work Phone: Functional Status Date Assessment Result Facility 03-07-2023 Functional Status Bathroom light on, Non-Slip footwear, Room check performed [facility] 03-07-20[address] [facility] 03-07-[address] [facility] 03-07-2023 Functional Status [facility] 03-06-2023 Functional Status Sensory Defici ts Hearing deficit, left ear, Hearing deficit, right ear [facility] 03-06-2023 Functional Status 3pm-11pm [facility] Mental Status Date Assessment Result Facility 03-07-2023 Mental Status Oriented x 4 [facility] 03-07-2023 Mental Status [facility] 03-07-2023 Mental Status [facility] Clinical Notes 03-06-2023 to 01-23-2024 Note Date & Type Note Facility 01-23-2024 Note HNO ID: [id number] Author: EMILEE PATTERSON MD Service: ? Author Type: Physician Type: Progress Notes Filed: 02/21/2024 16:26 Note Text: [facility] Department of Cardiovascular Medicine SECTION OF CARDIAC PACING and ELECTROPHYSIOLOGY OUTPATIENT VISIT DATE January 23, 2024 OUTPATIENT VISIT TYPE NEW PRIMARY CARE PHYSICIAN: Gema Gr [address] [place] [address] REFERRING PHYSICIAN: Niranjan Vallecillo MD [facility] [address] [place] [address] CHIEF COMPLAINT: Consultation requested by Emilee Patterson for an opinion regarding Ricco Zarate. My final recommendations will be communicated back to the requesting physician by way of shared Medical record or letter to requesting physician via US mail. HISTORY OF PRESENT ILLNESS: Mr. Zarate is a 79 year old male referred by Dr Vallecillo with past medical history of chronic systolic CHF, fatigue, HLD, HN, insomnia, NICM, NSVT, PAC/PVCs, paroxysmal atrial fibrillation, and SOB. He is on Toprol XL therapy however is not anticoagulated due to cost of Eliquis. He is referred for atrial ablation or watchman evaluation. Ricco presents for his office visit appointment this afternoon accompanied by his and son. He understands that he has been referred for consideration of treatment options for his AF. He admits that he cannot feel his AF. He denies any episodes of chest pain. His family reports that he has chronic dizziness since starting medication. Ricco admits to feeling a little bit dizzy at this time. Reviewed a BP/HR log. They report his Losartan was discontinued. He denies any cardiac-related physical restriction. They report that he has had more fatigue. He denies any palpitations. He was diagnosed with AF in February,. He has worn three monitors in the past. He was admitted to the hospital at the time of his diagnosis. He reports his dizziness is the same all the time. He was not dizzy prior to starting medication. Reviewed the nature, anatomy and physiology of AF with diagram. PAST CARDIAC HISTORY: PAST MEDICAL HISTORY Diagnosis Date Bilateral edema of lower extremity Chronic systolic CHF (congestive heart failure) (HCC) Fatigue HLD (hyperlipidemia) HTN (untreated) Insomnia NICM (nonischemic cardiomyopathy) (HCC) NSVT (nonsustained ventricular tachycardia) (HCC) Other ventricular tachycardia (HCC) PAC (premature atrial contraction) Pain in knee Paroxysmal atrial fibrillation (HCC) PVC (premature ventricular contraction) SOB (shortness of breath) Weakness PAST SURGICAL HISTORY Procedure Laterality Date CYSTOSCOPY,URETEROSCOPY,LITHOTRIP SY 12/08/2011 HEART CATHETERIZATION 03/07/2023 no signifiacant CAD identified KNEE ARTHROSCOPY/SURGERY Right REPAIR INGUINAL HERNIA SOCIAL HISTORY FAMILY HISTORY Problem Relation Age of Onset Cancer Mother No Known Problems Father Heart Failure Brother ALLERGIES: ALLERGIES No Known Allergies MEDICATIONS: atorvastatin (LIPITOR) 40 mg tablet Take 40 mg by mouth daily at bedtime. furosemide (LASIX) 40 mg tablet Take 1 tablet by mouth every afternoon. metoprolol succinate ER (TOPROL XL) 25 mg 24 hr tablet Take 1 tablet by mouth every afternoon. mexiletine (MEXITIL) 200 mg capsule Take 1 capsule by mouth every 12 hours. spironolactone (ALDACTONE) 25 mg tablet Take 1 tablet by mouth every afternoon. tamsulosin (FLOMAX) 0.4 mg Take 1 capsule by mouth every afternoon. REVIEW OF SYSTEMS: 10 system ROS was performed and is negative except except that which is listed in the HPI PHYSICAL EXAMINATION: BP 103/71 (BP Site: Left Arm, BP Position: Sitting, BP Cuff Size: Regular Adult) Pulse 104 Ht 170.2 cm (5' 7) Wt 92.1 kg (203 lb) SpO2 94% BMI 31.79 kg/m? General: Well appearing, in no acute distress. Skin: No clubbing, no cyanosis. Eyes: Extra ocular movements intact Oropharynx: Teeth in good repair. Neck: No jugular venous distention, no carotid bruits, carotids have a normal upstroke, no palpable thyromegaly. Lungs: Clear to auscultation bilaterally, no wheezing or rhonchi. Heart: Regular rhythm, PMI not displaced, S1, S2 normal, no S3, no S4, no heaves, no rub and no murmur. Abdomen: Soft, nontender, bowel sounds normal, no palpable organomegaly, no bruits. Extremities: No peripheral edema . Grade 2/4 distal pulses bilaterally. Neuro: Oriented to person, place and time, alert, cooperative, gait coordinated. CARDIOVASCULAR MEDICINE TESTING: Echocardiogram Report [facility] DOS: 03/05/2023 Impression: 1. There is mild concentric LVH, LV is normal in size. Systolic EF is 40-45% with mild diffuse hypokinesis of the left ventricle 2. Left atrium is moderately enlarged. 3. Aortic valve is probably trilleaflet. There is focal calcification seen (more content not included)... [facility] 01-02-2024 Note HNO ID: [id number] Author: SOO MACIAS MA Service: ? Author Type: Electric Motor Assembler And Tester Type: Progress Notes Filed: 01/02/2024 10:52 Note Text: Summary: Cardiac Reports Echocardiogram Report [facility] DOS: 03/05/2023 Impression: 1. There is mild concentric LVH, LV is normal in size. Systolic EF is 40-45% with mild diffuse hypokinesis of the left ventricle 2. Left atrium is moderately enlarged. 3. Aortic valve is probably trilleaflet. There is focal calcification seen in the right coronary cusp. There is mild regurgitation and no stenosis seen. 4. Aortic root is enlarged at 3.69 cm 5. Right ventricle is mikayla in size an systolic function TR velocity is inadequate to calculate fr right ventriclar systolic pressure. Cardiac Catheterization Report [facility] DOS: 03/07/2023 Impression: No significant CAD is identified. CT Chest Report [facility] DOS: 03/05/2023 Impression: There is no evidence of pulmonary embolus. Mild ground-glass density of the RUL consistent with edema vs pneumonitis. 7 Day Event Monitor Report [facility] DOS: 06/15/2023-06/21/2023 Impression: Patient was monitored for 6d 6h 24m. 12 events were transmitted. 0 patient triggered; 12 auto triggered. AF occurred 47 times (s) with HR range of 67-140: total AF Rusk 12%. VT occurred 1 time with fastest run 128 bpm, 4 beat run. 10,948 PACs with PAC burden of 1% 72,442 PVCs with PVC burden of 9% [facility] 03-13-[address] [facility] HISTORY & PHYSICAL NAME ACCOUNT SEX AGE ADMIT DISCHARGE PT MED. RECORD# NUMBER DATE DATE TYPE RICCO ZARATE [id number] Ryanne 78 03/05/23 1 [id number] ROOM: 305MO DATE OF : 47 DICTATING PHYSICIAN: Sara Roche ADMITTING DIAGNOSIS: Congestive heart failure, acute. CHIEF COMPLAINT: Shortness of breath. HISTORY OF PRESENT ILLNESS: This is a 78-year-old healthy gentleman with no active problems. He started to notice shortness of breath about 3 months ago. It initially was with significant exercise. It had not limited him much. About 2 to 3 weeks ago, he started to notice it happen even with minimal activity where he had to sit down to catch his breath. He checked his blood pressure on the day before while he was having some shortness of breath, and it was really high. He was told then to go to the Emergency Room. In the Emergency Room, the patient was somewhat tachypneic and had slight pedal edema. Other than that, the examination was unremarkable. BNP was markedly elevated. The patient was admitted with a diagnosis of acute congestive heart failure. When I interviewed the patient, his symptoms were as stated above, and there was definitely a period about 3 months ago when the patient could tell for sure there is a difference. Also based on the interview, in discussing his salt intake, he noted that he has had increased salt intake in the last 2 to 3 weeks in such food like pizza and chips at parties. PAST MEDICAL HISTORY: None. PAST SURGICAL HISTORY: (1) Bilateral inguinal hernia repair. (2) Meniscus tear repair. MEDICATIONS: None. ALLERGIES: The patient has no known allergies. FAMILY HISTORY: Both parents are . Mother had cancer of an unknown site. Father of old age. SOCIAL HISTORY: The patient does not smoke or drink alcohol. REVIEW OF SYSTEMS: The patient has no significant weight loss or gain. No headache, blurry vision, earache or sore throat. No neck pain. No chest pain. He does have shortness of breath. He does snore at night. No constipation. No diarrhea. He had increased frequency of urination during the night. He goes to the bathroom 3 to 4 times. Urine stream is weak at the end. No pain and no burning. No skin rashes. Page 1 of 3 RICCO ZARATE History & Physical RICCO ZARATE :1945 PHYSICAL EXAMINATION GENERAL APPEARANCE: This is a 78-year-old gentleman who appears healthy. VITAL SIGNS: Blood pressure is 181/98 and heart rate 81. He is afebrile. Temperature is 98. HEENT: Normocephalic and atraumatic. Pupils are round, equal and reactive. Tongue to midline. NECK: Neck was supple. LUNGS: Lungs are fairly clear. HEART: The heart was regular and distant. ABDOMEN: Abdomen is soft. No tenderness. EXTREMITIES: No edema. DIAGNOSTIC DATA: Laboratory data revealed a white count of 7.3, hemoglobin 13.3, sodium 140, potassium 3.2, BUN 15, creatinine 0.88, and glucose 127. BNP is 1514. IMPRESSIONS: 1. Acute congestive heart failure, most likely secondary to chronic diastolic congestive heart failure of hypertensive etiology and known diagnosis so far. 2. Elevated blood pressure, likely essential hypertension, undiagnosed. 3. Mild hypokalemia. 4. Obesity with a BMI of 34.1. 5. Possible sleep apnea. The patient is hypertensive and has snoring at night, and he is overweight. 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 PLAN: 1. The patient will be admitted to the hospital. 2. IV diuretics. 3. Control blood pressure. We will initiate losartan as well as beta blockers. 4. Echocardiogram is pending. 5. We will go ahead and use DVT prophylaxis. 6. Cardiology consultation. The above was discussed with the patient. I explained it, and he was agreeable with the above plan. Dictated By: Sara Roche MD Page 2 of 3 RICCO ZARATE History & Physical RICCO ZARATE :1945 03/05/23 17:53 JOB #: [id number] Transcribed By: dawn 03/05/23 19:29 Electronically signed by: E-Sign: SARA ROCHE MD 03/13/23 10:21 Update to H&P: [ ] No changes: I have examined the patient and reviewed the H&P and there are no changes. [ ] As previously dictated with the following changes: PHYSICIAN SIGNATURE: TIME: DATE: Page 3 of 3 RICCO ZARATE History & Physical [facility] 03-13-[address] [facility] DISCHARGE SUMMARY NAME ACCOUNT SEX AGE ADMIT DISCHARGE PT MED. RECORD# NUMBER DATE DATE TYPE RICCO ZARATE [id number] M [id number] 03/05/23 03/06/23 1 [id number] ROOM: [facility] DATE OF : 1945 ATTENDING PHYSICIAN: Sara Roche ADMITTING DIAGNOSIS: Acute congestive heart failure. FINAL DIAGNOSIS: Final diagnoses on transfer is acute congestive heart failure, superimposed on systolic congestive heart failure. HOSPITAL COURSE: This is a 78-year-old gentleman who had no significant past medical history. He does not take any home medications. He rarely sees doctors, and he remembers a few years ago when he had a different surgery he was never told he had high blood pressure. The patient has progressive shortness of breath for the last 2 to 3 months, and then it got much worse in the last 2 weeks. It has gotten to the point where he gets short of breath with minimal exertion, and has to sit down. The patient then presented to the emergency room, and he was admitted from there for acute congestive heart failure. He was initiated on diuretics. Cardiology consultation was ordered. An echocardiogram was done which revealed reduced ejection fraction, and at that point, Cardiology consulted recommended transfer, which was proceeded with. Condition on transfer was stable. DISPOSITION: Discharge destination: [facility] for further evaluation. Dictated By: Sara Roche MD 03/06/23 11:32 JOB #: [id number] Transcribed By: am 03/06/23 12:00 Electronically signed by: E-Sign: SARA ROCHE MD 03/13/23 10:21 Page 1 of 1 RICCO ZARATE Discharge Summary [facility] 03-07-2023 Hospital Discharge instructions Patient Education 03/07/2023 13:07:11 3- Heart Cath/PCI radial (01/2018)(CUSTOM) HEART CATHETERIZATION/PCI (radial) Discharge Instructions DIET Drink plenty of fluids for the next 48 hours to help your kidneys flush the heart cath dye out of your system ACTIVITY For the next 48 hours: Do not deep bend the wrist Do not lift, push, or pull anything over 5 pounds Do not use the hand/arm to support your weight when rising from a chair or bed For the next 7 days: Do not submerse your procedure site in water Do not swim, wash dishes, or take tub baths You may write, eat, type, and shower WOUND CARE Keep a Band-Aid on your procedure site for the next 3-4 days Change the Band-Aid daily or if it gets wet/soiled AFTER YOU GO HOME, CALL YOUR DOCTOR FOR: Any increase in bruising or tenderness from the procedure site Any redness, pus, or other signs of infection at the site A temperature above 100.5 Severe pain at the site DIAL 911 AND RETURN TO THE HOSPITAL FOR: Any bleeding from the procedure site. The site may be bruised or tender, but it should not be bleeding at any time. If your site begins to bleed, hold firm pressure on it and dial 911 to return to the hospital Any increase in swelling at the procedure site. An increase in swelling could mean the area is bleeding under the skin. Hold firm pressure to the site and dial 911 to return to the hospital Document Released: 03/26/2006 Document Revised: 03/12/2013 Document Reviewed: 03/27/2014 ExitCare Patient Information 2015 [employer] [facility]. This information is not intended to replace advice given to you by your health care provider. Make sure you discuss any questions you have with your health care provider. 03/07/2023 13:03:39 Form - Daily Weight Record Daily Weight Record It is important to weigh yourself daily. To do this: Make sure you use a reliable scale. Use the same scale each day. Keep this daily weight chart near your scale. Weigh yourself each morning at the same time. Before weighing yourself: ?Take off your shoes. ?Make sure you are wearing the same amount of clothing each day. Write down your weight in the spaces on the form. Compare today's weight to yesterday's weight. Bring this form with you to your follow-up visits with your health care provider. Call your health care provider if you have concerns about your weight, including rapid weight gain or loss. Date: Weight: Date: Weight: Date: Weight: Date: Weight: Date: Weight: Date: Weight: Date: Weight: Date: Weight: Date: Weight: Date: Weight: Date: Weight: Date: Weight: Date: Weight: Date: Weight: Date: Weight: Date: Weight: Date: Weight: Date: Weight: Date: Weight: Date: Weight: Date: Weight: Date: Weight: Date: Weight: Date: Weight: Date: Weight: Date: Weight: Date: Weight: Date: Weight: Date: Weight: Date: Weight: Date: Weight: Date: Weight: Date: Weight: Date: Weight: Date: Weight: Date: Weight: Date: Weight: Date: Weight: Date: Weight: Date: Weight: Date: Weight: Date: Weight: Date: Weight: Date: Weight: Date: Weight: Date: Weight: Date: Weight: Date: Weight: Date: Weight: Date: Weight: This information is not intended to replace advice given to you by your health care provider. Make sure you discuss any questions you have with your health care provider. Document Released: 06/07/2007 Document Revised: 03/25/2018 Document Reviewed: 03/25/2018 Elsevier Patient Education 2020 [employer] 03/07/2023 13:02:58 Fluid Restriction Fluid Restriction With some health conditions, you must restrict your fluid intake. This means that you need to limit the amount of fluid that you drink each day (fluid restriction). When you have a fluid restriction, you must carefully measure and keep track of the amount of fluid that you drink. Your health care provider will identify the specific amount of fluid you are allowed each day (fluid allowance). This amount may depend on several things, such as: How well your kidneys function. How much fluid you are keeping (retaining) in your body tissues. Your blood pressure. Your heart function. Your blood sodium level. What is my plan? Your health care provider recommends that you limit your fluid intake to per day. What counts toward my fluid intake? Your fluid intake includes all liquids that you drink, as well as any foods that become liquid at room temperature. The following are examples of some fluids that you will have to restrict: Tea, coffee, soda, lemonade, milk, water, juice, sports drinks, and nutritional supplement beverages. Alcoholic beverages. Cream. Gravy. Ice cubes. Soup and broth. The following are examples of foods that become liquid at room temperature. These foods will also count toward your fluid intake. Ice cream and ice milk. Frozen yogurt and sherbet. Frozen ice pops. Flavored gelatin. How do I keep track of my fluid intake? Each morning, fill a jug with the amount of water that is equal to your daily fluid allowance. You can use this water as a guideline for fluid allowance. Each time you take in any form of fluid (including ice cubes and foods that become liquid at room temperature), pour an equal amount of water out of the container. This helps you to see how much fluid you are taking in. It also helps you to see how much more fluid you can take in during the rest of the day. The following conversions may also be helpful in measuring your fluid intake: 1 cup equals 8 oz (240 mL). cup equals 6 oz (180 mL). ? cup equals 5? oz (160 mL). cup equals 4 oz (120 mL). ? cup equals 2? oz (80 mL). cup equals 2 oz (60 mL). 2 Tbsp equals 1 oz (30 mL). What are tips for following this plan? General instructions Make sure that you stay within your recommended fluid allowance each day. Always measure and keep track of your fluids (including ice cubes and foods that become liquid at room temperature). Use small cups and glasses and learn to sip fluids slowly. Try frozen fruits between meals, such as grapes or strawberries. These can satisfy thirst without adding to your fluid intake. Swallow your pills along with meals or soft foods such as applesauce or mashed potatoes, instead of with liquids. Doing this helps you to save your fluid allowance for something that you enjoy. Weigh yourself each day Weigh yourself every day. Keeping track of your daily weight can help you and your health care provider to notice as soon as possible if you are retaining too much fluid in your body. Follow this sequence every mornin.Urinate. 2.Weigh yourself. 3.Eat breakfast. Wear the same amount of clothing each time you weigh yourself. Write down your daily weight. Give this weight record to your health care provider. If your weight is going up, you may be retaining too much fluid. Every 1 lb (0.45 kg) of body weight that you gain is a sign that your body is retaining 2 cups (480 mL) of fluid. Manage your thirst Add lemon juice or a slice of fresh lemon to water or ice. Doing this helps to satisfy your thirst. Freeze fruit juice or water in an ice cube tray. Use this as part of your fluid allowance. These cubes are useful for quenching your thirst. Before you freeze the juice or water, measure how much liquid you use to fill a cube section of the ice tray. Subtract this amount from your day's allowance each time you consume a frozen cube. Avoid salty (high-sodium) foods. These foods make you thirsty and make it more difficult to stay within your daily fluid allowance. Keep the temperature in your home at a cooler level. Keep the air in your home as humid as possible. Dry air increases thirst. Avoid being out in the hot sun, which can cause you to sweat and become thirsty. To help avoid dry mouth, brush your teeth often or rinse out your mouth with mouthwash. Lemon wedges, hard sour candies, chewing gum, or breath spray may also help to moisten your mouth. What are some signs that I may be taking in too much fluid? You may be taking in too much fluid if: Your weight increases. Contact your health care provider if you gain weight rapidly. Your face, hands, legs, feet, and abdomen start to swell. You have trouble breathing. Summary With some health conditions, you must limit (restrict) your fluid intake. This means that you need to limit the amount of fluid you drink each day (fluid restriction). Your health care provider will identify the specific amount of fluid that you are allowed each day. When you have a fluid restriction, you must carefully measure and keep track of the amount of fluid that you drink. Your fluid intake includes all liquids that you drink, as well as any foods that become liquid at room temperature (such as ice cream and gelatin). You may be taking in too much fluid if your weight increases, your body starts to swell, or you have trouble breathing. This information is not intended to replace advice given to you by your health care provider. Make sure you discuss any questions you have with your health care provider. Document Released: 01/21/2008 Document Revised: 07/17/2019 Document Reviewed: 11/28/2017 [employer] Patient Education 2020 [employer]. 03/07/2023 13:01:52 Heart Failure Medicines Heart Failure Medicines Heart failure is a condition in which the heart cannot pump enough blood through the body. This can cause symptoms such as shortness of breath, fatigue, and confusion. There are two types of heart failure: Heart failure with reduced ejection fraction. In this type, the heart muscle is weak. Heart failure with preserved ejection fraction. In this type, the heart muscle does not fill with blood properly and may be stiff. There is no cure for heart failure. However, being treated with medicines and following your health care provider's instructions about a healthy lifestyle can help you stay active, avoid problems, and live longer. Talk to your health care provider about all medicines that you are taking, how often you should take them, and what possible problems (side effects) they may cause. Talk with your health care provider if you have difficulty affording your medicines. What are some common medicines for heart failure? The medicines that are prescribed for you will depend on your symptoms, the type of heart failure you have, and the cause of your heart failure. In some cases, you may need to take more than one medicine. You will be prescribed the following medicines according to your type of heart failure: Heart failure with reduced ejection fraction Beta-blockers. Angiotensin-converting enzyme (MODESTA) inhibitors. Angiotensin II receptor blockers (ARBs). Angiotensin receptor neprilysin inhibitors (ARNIs). Aldosterone antagonists. Diuretics. Digoxin. Nitrates. Heart failure with preserved ejection fraction Medicines to control blood pressure, including: ?Beta-blockers. ?Angiotensin-converting enzyme (MODESTA) inhibitors. ?Angiotensin II receptor blockers (ARBs). Diuretics. Aldosterone antagonists. What should I know about beta-blockers? These medicines lower your blood pressure and slow your heart rate. This helps to lessen your heart's workload. They can help to relieve chest pain (angina). They can help to improve your heart's ability to pump. They may cause asthma attacks and shortness of breath. Because these medicines slow your heart rate, it is important not to overwork yourself while exercising. Talk to your health care provider about what your target heart rate should be while you exercise. These medicines can hide the symptoms of low blood sugar (glucose), which is also called hypoglycemia. If you have diabetes, make sure to check your blood glucose carefully. If you have hypoglycemia, talk to your health care provider about adjusting your medicines. Beta-blockers may make you feel dizzy or light-headed at first. Do not drive or use heavy machinery when you first start these medicines. Ask your health care provider when it is safe for you to drive. What should I know about MODESTA inhibitors or ARBs? These medicines help to widen arteries and veins. This action lowers your blood pressure and lessens the strain on your heart, making it easier for your heart to pump. They can help to lessen the symptoms of heart failure. ARBs are often used if a person cannot take MODESTA inhibitors. MODESTA inhibitors may cause a dry cough. In rare cases, MODESTA inhibitors and ARBs can cause swelling of the tongue or lips, other swelling, taste problems, and skin rashes. If these symptoms occur, stop taking the medicines and contact your health care provider. Do not take MODESTA inhibitors if you are or may become . These medicines can cause health problems in an unborn baby. These medicines may cause dizziness. You may need regular checkups and blood tests to monitor how they are working. What should I know about ARNIs? These medicines are a combination of an ARB and another medicine. They lower your blood pressure. Side effects may include dry cough, dizziness, low blood pressure, and kidney problems. Do not take ARNIs if you are already taking MODESTA inhibitors or ARBs. You may notice increased urination when taking these medicines. ARNIs can raise the amount of potassium in the blood. Your potassium levels will be monitored regularly by your health care provider. What should I know about aldosterone antagonists? They help the body to remove excess sodium through urination. This helps to lessen the amount of blood that the heart needs to pump. They can also help to lower blood pressure and improve the heart's ability to pump blood. They may cause dizziness, diarrhea, coughing, or flu-like symptoms. They should not be used if you have type 2 diabetes. They can raise the amount of potassium in the blood. Your potassium levels will be monitored regularly by your health care provider. These medicines can make men's breasts large and tender. What should I know about diuretics? Diuretics are medicines that help the body get rid of excess fluid through urination. They can also help lessen your heart's workload. They help to lessen fluid buildup in the lungs, ankles, and feet. They help to lower your blood pressure. They can worsen problems with controlling urination (urinary incontinence). They may cause dizziness, headaches, muscle cramps, and an upset stomach. They can cause weak muscles, dry mouth, or confusion. It is important to drink plenty of fluids while taking these medicines, especially while exercising or on hot days. What should I know about digoxin? Digoxin helps the heart pump more blood efficiently. It also lowers your heart rate. It can help ease heart failure symptoms and may be used if other medicines do not work. It can also help with irregular heartbeat (arrhythmia). It may cause stomach problems, fatigue, headache, drowsiness, or vision problems. What should I know about nitrates? Nitrates relax the blood vessels and increase oxygen and blood supply to the heart. They also lower the blood pressure. They are usually taken to lessen chest pain. They may cause headaches, flushing, or irregular heartbeat. Summary A healthy lifestyle and treatment with medicine will relieve symptoms of heart failure. In some cases, you may need to take more than one medicine. It is important to talk to your health care provider about how often you should take your medicines. Do not skip a dose or change your dosage. Talk to your health care provider about possible side effects of these medicines. This information is not intended to replace advice given to you by your health care provider. Make sure you discuss any questions you have with your health care provider. Document Released: 08/10/2017 Document Revised: 04/10/2018 Document Reviewed: 08/10/2017 [employer] Patient Education 2020 [employer]. Follow Up Care 03/06/2023 10:21:55 With:VONDA ADLER MD Address: [address] [facility] [address] [place] [address] [phone] When:Within 2 Week(s) With:ALPA BOWLES MD Address: [address] [place] [address]- When:Within 2 Week(s) With:Prescription Assistance Address: [phone] When: only if needed Comments:A voucher has been arranged for you and is available for non-narcotic medications ordered by your doctor. To access, bring your prescriptions to the [facility] located in the [place] [facility] on the main floor of the [facility] .Pharmacy hours are:Sunday - Sunday: 6 AM to 5 PMSaturday: 8 AM to 2 PMSunday: CLOSED [facility] 03-07-2023 Note Discharge Instructions Thank you for allowing [facility] to assist you with your healthcare needs. The following is important discharge information regarding your hospital visit. Your Care Team ALPA BOWLSE MD Your Diagnosis Acute CHF (congestive heart failure) Hyperlipemia Hypertension Hypokalemia Hypomagnesemia Pedal edema Shortness of breath What to do next Instructions From Your Doctor Please obtain ordered blood work at [facility] in the next 5-7 days. Do not lift heavier than a milk gallon in your right arm for the next 5 days. Follow Up Appointments Follow Up with VONDA ADLER MD When In 2 weeks Where: [address] [facility] [address] [place] [address] [phone] Follow Up with ALPA BOWLES MD When In 2 weeks Where: [address] [place] [address]- Follow Up with Prescription Assistance When Only if needed Why: A voucher has been arranged for you and is available for non-narcotic medications ordered by your doctor. To access, bring your prescriptions to the [facility] located in the [facility] on the main floor of the hospital . Pharmacy hours are: Sunday - Sunday: 6 AM to 5 PM Sunday: 8 AM to 2 PM Sunday: CLOSED Where: [phone] The Following Activity and Diet Have Been Ordered for You Discharge Activity - Ordered -- Lifting Restricted less than 5 pounds, of right arm for the next 5 days, 03/07/23 12:49:00 EST Discharge Diet - Ordered -- Type of Diet: Regular Diet, Sodium limit: Low, 03/07/23 12:49:00 EST The Following Equipment Has Been Ordered for You No qualifying data available. The Following Treatments Have Been Ordered for You Discharge Labs Discharge Outpatient Labwork - Ordered -- BMP, Monoitor renal funciton, follow-up within: 5-7 days, Your appointment is: 03/09/23 9:00:00 EST, Results Notify to: ALPA BOWLES MD, 03/07/23 12:36:00 EST Discharge Radiology No qualifying data available. Other Therapies No qualifying data available. Post Acute Orders No qualifying data available. Someone Will Contact You Regarding These Home Health Referrals No home referrals have been ordered for you. No one will call you. Allergies NKA Medications Please ask your primary doctor or pharmacist before taking any other medication not listed, including over the counter drugs, herbal medications, vitamins and or supplements as they may interact with your home medications. What How Much When Instructions Last Dose New atorvastatin (Lipitor 40 mg oral tablet) 1 tab(s) by mouth Once a day Refills: 3 Pickup at [facility] New furosemide (Lasix 40 mg oral tablet) 1 tab(s) by mouth Once a day Refills: 3 Pickup at [facility] New spironolactone (spironolactone 25 mg oral tablet) 1 tab(s) by mouth Once a day with a meal Refills: 3 Pickup at [facility] Changed losartan (losartan 25 mg oral tablet) 1 tab(s) by mouth Once a day Pickup at [facility] Changed metoprolol (Toprol-XL 25 mg oral tablet, extended release) 1 tab(s) by mouth Once a day with a meal Pickup at [facility] Unchanged tamsulosin (tamsulosin 0.4 mg oral capsule) 1 cap by mouth Once a day Pharmacy Information [facility]: [address] [place] [address] [phone] Please take this list to your next doctor s visit. Bring all medications you take, including over the counter medications, herbals and other supplements with you to your doctor s visit. Patients and families are reminded to discard old lists and to update any records with all medication providers or retail pharmacies. Education Materials HEART CATHETERIZATION/PCI (radial) Discharge Instructions DIET Drink plenty of fluids for the next 48 hours to help your kidneys flush the heart cath dye out of your system ACTIVITY For the next 48 hours: Do not deep bend the wrist Do not lift, push, or pull anything over 5 pounds Do not use the hand/arm to support your weight when rising from a chair or bed For the next 7 days: Do not submerse your procedure site in water Do not swim, wash dishes, or take tub baths You may write, eat, type, and shower WOUND CARE Keep a Band-Aid on your procedure site for the next 3-4 days Change the Band-Aid daily or if it gets wet/soiled AFTER YOU GO HOME, CALL YOUR DOCTOR FOR: Any increase in bruising or tenderness from the procedure site Any redness, pus, or other signs of infection at the site A temperature above 100.5 Severe pain at the site DIAL 911 AND RETURN TO THE HOSPITAL FOR: Any bleeding from the procedure site. The site may be bruised or tender, but it should not be bleeding at any time. If your site begins to bleed, hold firm pressure on it and dial 911 to return to the hospital Any increase in swelling at the procedure site. An increase in swelling could mean the area is bleeding under the skin. Hold firm pressure to the site and dial 911 to return to the hospital Document Released: 03/26/2006 Document Revised: 03/12/2013 Document Reviewed: 03/27/2014 ExitCare Patient Information 2015 [employer]. This information is not intended to replace advice given to you by your health care provider. Make sure you discuss any questions you have with your health care provider. Daily Weight Record It is important to weigh yourself daily. To do this: Make sure you use a reliable scale. Use the same scale each day. Keep this daily weight chart near your scale. Weigh yourself each morning at the same time. Before weighing yourself: ? Take off your shoes. ? Make sure you are wearing the same amount of clothing each day. Write down your weight in the spaces on the form. Compare today's weight to yesterday's weight. Bring this form with you to your follow-up visits with your health care provider. Call your health care provider if you have concerns about your weight, including rapid weight gain or loss. Date: Weight: Date: Weight: Date: Weight: Date: Weight: Date: Weight: Date: Weight: Date: Weight: Date: Weight: Date: Weight: Date: Weight: Date: Weight: Date: Weight: Date: Weight: Date: Weight: Date: Weight: Date: Weight: Date: Weight: Date: Weight: Date: Weight: Date: Weight: Date: Weight: Date: Weight: Date: Weight: Date: Weight: Date: Weight: Date: Weight: Date: Weight: Date: Weight: Date: Weight: Date: Weight: Date: Weight: Date: Weight: Date: Weight: Date: Weight: Date: Weight: Date: Weight: Date: Weight: Date: Weight: Date: Weight: Date: Weight: Date: Weight: Date: Weight: Date: Weight: Date: Weight: Date: Weight: Date: Weight: Date: Weight: Date: Weight: Date: Weight: Date: Weight: This information is not intended to replace advice given to you by your health care provider. Make sure you discuss any questions you have with your health care provider. Document Released: 06/07/2007 Document Revised: 03/25/2018 Document Reviewed: 03/25/2018 [employer] Patient Education 2020 [employer] Fluid Restriction With some health conditions, you must restrict your fluid intake. This means that you need to limit the amount of fluid that you drink each day (fluid restriction). When you have a fluid restriction, you must carefully measure and keep track of the amount of fluid that you drink. Your health care provider will identify the specific amount of fluid you are allowed each day (fluid allowance). This amount may depend on several things, such as: How well your kidneys function. How much fluid you are keeping (retaining) in your body tissues. Your blood pressure. Your heart function. Your blood sodium level. What is my plan? Your health care provider recommends that you limit your fluid intake to per day. What counts toward my fluid intake? Your fluid intake includes all liquids that you drink, as well as any foods that become liquid at room temperature. The following are examples of some fluids that you will have to restrict: Tea, coffee, soda, lemonade, milk, water, juice, sports drinks, and nutritional supplement beverages. Alcoholic beverages. Cream. Gravy. Ice cubes. Soup and broth. The following are examples of foods that become liquid at room temperature. These foods will also count toward your fluid intake. Ice cream and ice milk. Frozen yogurt and sherbet. Frozen ice pops. Flavored gelatin. How do I keep track of my fluid intake? Each morning, fill a jug with the amount of water that is equal to your daily fluid allowance. You can use this water as a guideline for fluid allowance. Each time you take in any form of fluid (including ice cubes and foods that become liquid at room temperature), pour an equal amount of water out of the container. This helps you to see how much fluid you are taking in. It also helps you to see how much more fluid you can take in during the rest of the day. The following conversions may also be helpful in measuring your fluid intake: 1 cup equals 8 oz (240 mL). cup equals 6 oz (180 mL). ? cup equals 5? oz (160 mL). cup equals 4 oz (120 mL). ? cup equals 2? oz (80 mL). cup equals 2 oz (60 mL). 2 Tbsp equals 1 oz (30 mL). What are tips for following this plan? General instructions Make sure that you stay within your recommended fluid allowance each day. Always measure and keep track of your fluids (including ice cubes and foods that become liquid at room temperature). Use small cups and glasses and learn to sip fluids slowly. Try frozen fruits between meals, such as grapes or strawberries. These can satisfy thirst without adding to your fluid intake. Swallow your pills along with meals or soft foods such as applesauce or mashed potatoes, instead of with liquids. Doing this helps you to save your fluid allowance for something that you enjoy. Weigh yourself each day Weigh yourself every day. Keeping track of your daily weight can help you and your health care provider to notice as soon as possible if you are retaining too much fluid in your body. Follow this sequence every mornin. Urinate. 2. Weigh yourself. 3. Eat breakfast. Wear the same amount of clothing each time you weigh yourself. Write down your daily weight. Give this weight record to your health care provider. If your weight is going up, you may be retaining too much fluid. Every 1 lb (0.45 kg) of body weight that you gain is a sign that your body is retaining 2 cups (480 mL) of fluid. Manage your thirst Add lemon juice or a slice of fresh lemon to water or ice. Doing this helps to satisfy your thirst. Freeze fruit juice or water in an ice cube tray. Use this as part of your fluid allowance. These cubes are useful for quenching your thirst. Before you freeze the juice or water, measure how much liquid you use to fill a cube section of the ice tray. Subtract this amount from your day's allowance each time you consume a frozen cube. Avoid salty (high-sodium) foods. These foods make you thirsty and make it more difficult to stay within your daily fluid allowance. Keep the temperature in your home at a cooler level. Keep the air in your home as humid as possible. Dry air increases thirst. Avoid being out in the hot sun, which can cause you to sweat and become thirsty. To help avoid dry mouth, brush your teeth often or rinse out your mouth with mouthwash. Lemon wedges, hard sour candies, chewing gum, or breath spray may also help to moisten your mouth. What are some signs that I may be taking in too much fluid? You may be taking in too much fluid if: Your weight increases. Contact your health care provider if you gain weight rapidly. Your face, hands, legs, feet, and abdomen start to swell. You have trouble breathing. Summary With some health conditions, you must limit (restrict) your fluid intake. This means that you need to limit the amount of fluid you drink each day (fluid restriction). Your health care provider will identify the specific amount of fluid that you are allowed each day. When you have a fluid restriction, you must carefully measure and keep track of the amount of fluid that you drink. Your fluid intake includes all liquids that you drink, as well as any foods that become liquid at room temperature (such as ice cream and gelatin). You may be taking in too much fluid if your weight increases, your body starts to swell, or you have trouble breathing. This information is not intended to replace advice given to you by your health care provider. Make sure you discuss any questions you have with your health care provider. Document Released: 01/21/2008 Document Revised: 07/17/2019 Document Reviewed: 11/28/2017 [employer] Patient Education 2020 [employer] Heart Failure Medicines Heart failure is a condition in which the heart cannot pump enough blood through the body. This can cause symptoms such as shortness of breath, fatigue, and confusion. There are two types of heart failure: Heart failure with reduced ejection fraction. In this type, the heart muscle is weak. Heart failure with preserved ejection fraction. In this type, the heart muscle does not fill with blood properly and may be stiff. There is no cure for heart failure. However, being treated with medicines and following your health care provider's instructions about a healthy lifestyle can help you stay active, avoid problems, and live longer. Talk to your health care provider about all medicines that you are taking, how often you should take them, and what possible problems (side effects) they may cause. Talk with your health care provider if you have difficulty affording your medicines. What are some common medicines for heart failure? The medicines that are prescribed for you will depend on your symptoms, the type of heart failure you have, and the cause of your heart failure. In some cases, you may need to take more than one medicine. You will be prescribed the following medicines according to your type of heart failure: Heart failure with reduced ejection fraction Beta-blockers. Angiotensin-converting enzyme (MODESTA) inhibitors. Angiotensin II receptor blockers (ARBs). Angiotensin receptor neprilysin inhibitors (ARNIs). Aldosterone antagonists. Diuretics. Digoxin. Nitrates. Heart failure with preserved ejection fraction Medicines to control blood pressure, including: ? Beta-blockers. ? Angiotensin-converting enzyme (MODESTA) inhibitors. ? Angiotensin II receptor blockers (ARBs). Diuretics. Aldosterone antagonists. What should I know about beta-blockers? These medicines lower your blood pressure and slow your heart rate. This helps to lessen your heart's workload. They can help to relieve chest pain (angina). They can help to improve your heart's ability to pump. They may cause asthma attacks and shortness of breath. Because these medicines slow your heart rate, it is important not to overwork yourself while exercising. Talk to your health care provider about what your target heart rate should be while you exercise. These medicines can hide the symptoms of low blood sugar (glucose), which is also called hypoglycemia. If you have diabetes, make sure to check your blood glucose carefully. If you have hypoglycemia, talk to your health care provider about adjusting your medicines. Beta-blockers may make you feel dizzy or light-headed at first. Do not drive or use heavy machinery when you first start these medicines. Ask your health care provider when it is safe for you to drive. What should I know about MODESTA inhibitors or ARBs? These medicines help to widen arteries and veins. This action lowers your blood pressure and lessens the strain on your heart, making it easier for your heart to pump. They can help to lessen the symptoms of heart failure. ARBs are often used if a person cannot take MODESTA inhibitors. MODESTA inhibitors may cause a dry cough. In rare cases, MODESTA inhibitors and ARBs can cause swelling of the tongue or lips, other swelling, taste problems, and skin rashes. If these symptoms occur, stop taking the medicines and contact your health care provider. Do not take MODESTA inhibitors if you are or may become . These medicines can cause health problems in an unborn baby. These medicines may cause dizziness. You may need regular checkups and blood tests to monitor how they are working. What should I know about ARNIs? These medicines are a combination of an ARB and another medicine. They lower your blood pressure. Side effects may include dry cough, dizziness, low blood pressure, and kidney problems. Do not take ARNIs if you are already taking MODESTA inhibitors or ARBs. You may notice increased urination when taking these medicines. ARNIs can raise the amount of potassium in the blood. Your potassium levels will be monitored regularly by your health care provider. What should I know about aldosterone antagonists? They help the body to remove excess sodium through urination. This helps to lessen the amount of blood that the heart needs to pump. They can also help to lower blood pressure and improve the heart's ability to pump blood. They may cause dizziness, diarrhea, coughing, or flu-like symptoms. They should not be used if you have type 2 diabetes. They can raise the amount of potassium in the blood. Your potassium levels will be monitored regularly by your health care provider. These medicines can make men's breasts large and tender. What should I know about diuretics? Diuretics are medicines that help the body get rid of excess fluid through urination. They can also help lessen your heart's workload. They help to lessen fluid buildup in the lungs, ankles, and feet. They help to lower your blood pressure. They can worsen problems with controlling urination (urinary incontinence). They may cause dizziness, headaches, muscle cramps, and an upset stomach. They can cause weak muscles, dry mouth, or confusion. It is important to drink plenty of fluids while taking these medicines, especially while exercising or on hot days. What should I know about digoxin? Digoxin helps the heart pump more blood efficiently. It also lowers your heart rate. It can help ease heart failure symptoms and may be used if other medicines do not work. It can also help with irregular heartbeat (arrhythmia). It may cause stomach problems, fatigue, headache, drowsiness, or vision problems. What should I know about nitrates? Nitrates relax the blood vessels and increase oxygen and blood supply to the heart. They also lower the blood pressure. They are usually taken to lessen chest pain. They may cause headaches, flushing, or irregular heartbeat. Summary A healthy lifestyle and treatment with medicine will relieve symptoms of heart failure. In some cases, you may need to take more than one medicine. It is important to talk to your health care provider about how often you should take your medicines. Do not skip a dose or change your dosage. Talk to your health care provider about possible side effects of these medicines. This information is not intended to replace advice given to you by your health care provider. Make sure you discuss any questions you have with your health care provider. Document Released: 08/10/2017 Document Revised: 04/10/2018 Document Reviewed: 08/10/2017 [employer] Patient Education 2020 [employer]. Additional Information VACCINATE! IT SAVES LIVES! Members of the community who have not yet received the COVID-19 vaccine and would like to receive it can visit one of [facility] vaccine clinics. There are many vaccine clinic locations within the [facility]. For locations and available times, please visit https://gettheshot.coronavirus.pr io.gov/. It is important to note that some COVID mobile vaccine clinics are held outdoors and may be canceled in rainy or stormy conditions. To learn more about pediatric vaccinations (ages 5-11), we invite you to visit the [facility] webpage. [email or web address] To learn more about the COVID-19 vaccine, we invite you to visit the CDC website for a list of frequently asked questions.https://www.cdc.gov/cor onavirus/2019-ncov/vaccines/faq.h tml [facility] [employer] Patient Portal Access Instructions: Stay connected with your healthcare team and access your personal medical information anytime with the [facility] Patient Portal. Please follow the directions below to create your [facility] account: 1.Access the email account you provided upon registration to the hospital/physician office.2.Look for an invitation email from [facility].3.Open the email and access the invitation link: Accept Invitation to [facility].4.Fill in the required levi to create your account. To access your account, visit [email or web address]. Click the blue button labeled Access Patient Portal and then log in with the username and password that you created in the steps above. You will be able to view your test results, lab results, a summary of your visits, upcoming appointments and more. There is also a convenient messaging option where you can send secure messages to your provider. In addition, you will have the ability to download any documents or summaries to your computer and/or send the information securely to a physician. Remember that your healthcare information is confidential, so carefully consider who you will allow to register on the [facility] Patient Portal for access to your information. You can also access the [facility] Patient Portal on the [facility] nik. Simply click on Patient Portal and then log into your account. If you would like to receive a full copy of your medical records, please contact the [facility] Medical Records Department by calling [phone], Sunday through Sunday between 8 a.m. and 4:30 p.m. HOW TO SAFELY DISPOSE OF PRESCRIPTION MEDICATIONS Please use one of the following methods to safely dispose of your unused medications. 1.Use a drug disposal kit: the drug disposal pouch allows you to safely discard your old and unused drugs. Ask your nurse to give you one when you are discharged.2.Visit a local take-back location: Many local pharmacies and police departments have programs that collect old and unwanted prescription drugs. Call your local pharmacy or go to http://bit.ly/2X1Nf4t to find one close to you.3.Make use of household items: Use cat litter or old coffee grounds to dispose medications if other options are not available. Mix your drugs with these household products, seal them in an airtight container and throw it into the garbage. Call [facility]: [phone] to be sure your drugs can be disposed of in this way. Some medicines may require a different approach.4.Never flush your medications down the toilet. IF YOU HAVE BEEN PRESCRIBED AN OPIOID FOR PAIN If you have been prescribed an opioid (such as hydrocodone, oxycodone or morphine), it is critical to understand the possible side effects and risks of opioid pain medications. Even when taken as directed, opioids can have several side effects including: Tolerance, meaning you might need to take more of a medication for the same pain relief. Nausea, vomiting and/or constipation. Sleepiness, dizziness, dry mouth, confusion, depression or itching. Physical dependence, meaning you have withdrawal symptoms when a medication is stopped, can develop within a few days. KNOW YOUR RESPONSIBILITIES It is important to know exactly how much and how often to take the opioid pain medications you are prescribed. Never take opioids in higher amounts or more often than prescribed. Do not combine opioids with alcohol or other drugs that cause drowsiness, such as benzodiazepines, also known as benzos, including diazepam and alprazolam, muscle relaxants or sleep aids. Never sell or share prescription opioids. This is illegal. Store opioids in a secure place and out of reach of others (including children, family, friends and visitors). The last page of this document has been signed and retained as a CHART COPY. Signatures Patient Education Materials 3- Heart Cath/PCI radial (01/2018)(CUSTOM) Form - Daily Weight Record Fluid Restriction Heart Failure Medicines Medication Leaflets My discharge plan and instructions have been reviewed and explained to me and IKARON JOHN A understand my current condition and have read and understand these discharge instructions. I have received a written copy of the plan/instructions. If I have questions, I am aware that I should contact my doctor. Patient/Hopper Filler Signature: Date/Time: Relationship to Patient: ____ Witness Name/Signature: Date/Time: [facility] 03-07-2023 Note Discharge Instructions Thank you for allowing [facility] to assist you with your healthcare needs. The following is important discharge information regarding your hospital visit. Your Care Team ALPA BOWLES MD Your Diagnosis Acute CHF (congestive heart failure) Hyperlipemia Hypertension Hypokalemia Hypomagnesemia Pedal edema Shortness of breath What to do next Instructions From Your Doctor Please obtain ordered blood work at [facility] in the next 5-7 days. Do not lift heavier than a milk gallon in your right arm for the next 5 days. Follow Up Appointments Follow Up with VONDA ADLER MD When In 2 weeks Where: [address] [facility] [place] [address]- [phone] Follow Up with ALPA BOWLES MD When In 2 weeks Where: [address] [place] [address]- Follow Up with Prescription Assistance When Only if needed Why: A voucher has been arranged for you and is available for non-narcotic medications ordered by your doctor. To access, bring your prescriptions to the [facility] located in the [facility] on the main floor of the [facility] . Pharmacy hours are: Sunday - Sunday: 6 AM to 5 PM Sunday: 8 AM to 2 PM Sunday: CLOSED Where: [phone] The Following Activity and Diet Have Been Ordered for You Discharge Activity - Ordered -- Lifting Restricted less than 5 pounds, of right arm for the next 5 days, 03/07/23 12:49:00 EST Discharge Diet - Ordered -- Type of Diet: Regular Diet, Sodium limit: Low, 03/07/23 12:49:00 EST The Following Equipment Has Been Ordered for You No qualifying data available. The Following Treatments Have Been Ordered for You Discharge Labs Discharge Outpatient Labwork - Ordered -- BMP, Monoitor renal funciton, follow-up within: 5-7 days, Your appointment is: 03/09/23 9:00:00 EST, Results Notify to: ALPA BOWLES MD, 03/07/23 12:36:00 EST Discharge Radiology No qualifying data available. Other Therapies No qualifying data available. Post Acute Orders No qualifying data available. Someone Will Contact You Regarding These Home Health Referrals No home referrals have been ordered for you. No one will call you. Allergies NKA Medications Please ask your primary doctor or pharmacist before taking any other medication not listed, including over the counter drugs, herbal medications, vitamins and or supplements as they may interact with your home medications. What How Much When Instructions Last Dose New atorvastatin (Lipitor 40 mg oral tablet) 1 tab(s) by mouth Once a day Refills: 3 Pickup at [facility] New furosemide (Lasix 40 mg oral tablet) 1 tab(s) by mouth Once a day Refills: 3 Pickup at [facility] New spironolactone (spironolactone 25 mg oral tablet) 1 tab(s) by mouth Once a day with a meal Refills: 3 Pickup at [facility] Changed losartan (losartan 25 mg oral tablet) 1 tab(s) by mouth Once a day Pickup at [facility] Changed metoprolol (Toprol-XL 25 mg oral tablet, extended release) 1 tab(s) by mouth Once a day with a meal Pickup at [facility] Unchanged tamsulosin (tamsulosin 0.4 mg oral capsule) 1 cap by mouth Once a day Pharmacy Information [facility]: [address], [place] [id number] [phone] Please take this list to your next doctor s visit. Bring all medications you take, including over the counter medications, herbals and other supplements with you to your doctor s visit. Patients and families are reminded to discard old lists and to update any records with all medication providers or retail pharmacies. Education Materials HEART CATHETERIZATION/PCI (radial) Discharge Instructions DIET Drink plenty of fluids for the next 48 hours to help your kidneys flush the heart cath dye out of your system ACTIVITY For the next 48 hours: Do not deep bend the wrist Do not lift, push, or pull anything over 5 pounds Do not use the hand/arm to support your weight when rising from a chair or bed For the next 7 days: Do not submerse your procedure site in water Do not swim, wash dishes, or take tub baths You may write, eat, type, and shower WOUND CARE Keep a Band-Aid on your procedure site for the next 3-4 days Change the Band-Aid daily or if it gets wet/soiled AFTER YOU GO HOME, CALL YOUR DOCTOR FOR: Any increase in bruising or tenderness from the procedure site Any redness, pus, or other signs of infection at the site A temperature above 100.5 Severe pain at the site DIAL 911 AND RETURN TO THE HOSPITAL FOR: Any bleeding from the procedure site. The site may be bruised or tender, but it should not be bleeding at any time. If your site begins to bleed, hold firm pressure on it and dial 911 to return to the hospital Any increase in swelling at the procedure site. An increase in swelling could mean the area is bleeding under the skin. Hold firm pressure to the site and dial 911 to return to the hospital Document Released: 03/26/2006 Document Revised: 03/12/2013 Document Reviewed: 03/27/2014 [facility] Patient Information 2015 [employer]. This information is not intended to replace advice given to you by your health care provider. Make sure you discuss any questions you have with your health care provider. Daily Weight Record It is important to weigh yourself daily. To do this: Make sure you use a reliable scale. Use the same scale each day. Keep this daily weight chart near your scale. Weigh yourself each morning at the same time. Before weighing yourself: ? Take off your shoes. ? Make sure you are wearing the same amount of clothing each day. Write down your weight in the spaces on the form. Compare today's weight to yesterday's weight. Bring this form with you to your follow-up visits with your health care provider. Call your health care provider if you have concerns about your weight, including rapid weight gain or loss. Date: Weight: Date: Weight: Date: Weight: Date: Weight: Date: Weight: Date: Weight: Date: Weight: Date: Weight: Date: Weight: Date: Weight: Date: Weight: Date: Weight: Date: Weight: Date: Weight: Date: Weight: Date: Weight: Date: Weight: Date: Weight: Date: Weight: Date: Weight: Date: Weight: Date: Weight: Date: Weight: Date: Weight: Date: Weight: Date: Weight: Date: Weight: Date: Weight: Date: Weight: Date: Weight: Date: Weight: Date: Weight: Date: Weight: Date: Weight: Date: Weight: Date: Weight: Date: Weight: Date: Weight: Date: Weight: Date: Weight: Date: Weight: Date: Weight: Date: Weight: Date: Weight: Date: Weight: Date: Weight: Date: Weight: Date: Weight: Date: Weight: Date: Weight: This information is not intended to replace advice given to you by your health care provider. Make sure you discuss any questions you have with your health care provider. Document Released: 06/07/2007 Document Revised: 03/25/2018 Document Reviewed: 03/25/2018 [employer] Patient Education 2020 [employer] Fluid Restriction With some health conditions, you must restrict your fluid intake. This means that you need to limit the amount of fluid that you drink each day (fluid restriction). When you have a fluid restriction, you must carefully measure and keep track of the amount of fluid that you drink. Your health care provider will identify the specific amount of fluid you are allowed each day (fluid allowance). This amount may depend on several things, such as: How well your kidneys function. How much fluid you are keeping (retaining) in your body tissues. Your blood pressure. Your heart function. Your blood sodium level. What is my plan? Your health care provider recommends that you limit your fluid intake to per day. What counts toward my fluid intake? Your fluid intake includes all liquids that you drink, as well as any foods that become liquid at room temperature. The following are examples of some fluids that you will have to restrict: Tea, coffee, soda, lemonade, milk, water, juice, sports drinks, and nutritional supplement beverages. Alcoholic beverages. Cream. Gravy. Ice cubes. Soup and broth. The following are examples of foods that become liquid at room temperature. These foods will also count toward your fluid intake. Ice cream and ice milk. Frozen yogurt and sherbet. Frozen ice pops. Flavored gelatin. How do I keep track of my fluid intake? Each morning, fill a jug with the amount of water that is equal to your daily fluid allowance. You can use this water as a guideline for fluid allowance. Each time you take in any form of fluid (including ice cubes and foods that become liquid at room temperature), pour an equal amount of water out of the container. This helps you to see how much fluid you are taking in. It also helps you to see how much more fluid you can take in during the rest of the day. The following conversions may also be helpful in measuring your fluid intake: 1 cup equals 8 oz (240 mL). cup equals 6 oz (180 mL). ? cup equals 5? oz (160 mL). cup equals 4 oz (120 mL). ? cup equals 2? oz (80 mL). cup equals 2 oz (60 mL). 2 Tbsp equals 1 oz (30 mL). What are tips for following this plan? General instructions Make sure that you stay within your recommended fluid allowance each day. Always measure and keep track of your fluids (including ice cubes and foods that become liquid at room temperature). Use small cups and glasses and learn to sip fluids slowly. Try frozen fruits between meals, such as grapes or strawberries. These can satisfy thirst without adding to your fluid intake. Swallow your pills along with meals or soft foods such as applesauce or mashed potatoes, instead of with liquids. Doing this helps you to save your fluid allowance for something that you enjoy. Weigh yourself each day Weigh yourself every day. Keeping track of your daily weight can help you and your health care provider to notice as soon as possible if you are retaining too much fluid in your body. Follow this sequence every mornin. Urinate. 2. Weigh yourself. 3. Eat breakfast. Wear the same amount of clothing each time you weigh yourself. Write down your daily weight. Give this weight record to your health care provider. If your weight is going up, you may be retaining too much fluid. Every 1 lb (0.45 kg) of body weight that you gain is a sign that your body is retaining 2 cups (480 mL) of fluid. Manage your thirst Add lemon juice or a slice of fresh lemon to water or ice. Doing this helps to satisfy your thirst. Freeze fruit juice or water in an ice cube tray. Use this as part of your fluid allowance. These cubes are useful for quenching your thirst. Before you freeze the juice or water, measure how much liquid you use to fill a cube section of the ice tray. Subtract this amount from your day's allowance each time you consume a frozen cube. Avoid salty (high-sodium) foods. These foods make you thirsty and make it more difficult to stay within your daily fluid allowance. Keep the temperature in your home at a cooler level. Keep the air in your home as humid as possible. Dry air increases thirst. Avoid being out in the hot sun, which can cause you to sweat and become thirsty. To help avoid dry mouth, brush your teeth often or rinse out your mouth with mouthwash. Lemon wedges, hard sour candies, chewing gum, or breath spray may also help to moisten your mouth. What are some signs that I may be taking in too much fluid? You may be taking in too much fluid if: Your weight increases. Contact your health care provider if you gain weight rapidly. Your face, hands, legs, feet, and abdomen start to swell. You have trouble breathing. Summary With some health conditions, you must limit (restrict) your fluid intake. This means that you need to limit the amount of fluid you drink each day (fluid restriction). Your health care provider will identify the specific amount of fluid that you are allowed each day. When you have a fluid restriction, you must carefully measure and keep track of the amount of fluid that you drink. Your fluid intake includes all liquids that you drink, as well as any foods that become liquid at room temperature (such as ice cream and gelatin). You may be taking in too much fluid if your weight increases, your body starts to swell, or you have trouble breathing. This information is not intended to replace advice given to you by your health care provider. Make sure you discuss any questions you have with your health care provider. Document Released: 01/21/2008 Document Revised: 07/17/2019 Document Reviewed: 11/28/2017 [employer] Patient Education 2020 [employer] Heart Failure Action Plan A heart failure action plan helps you understand what to do when you have symptoms of heart failure. Follow the plan that was created by you and your health care provider. Review your plan each time you visit your health care provider. Red zone These signs and symptoms mean you should get medical help right away: You have trouble breathing when resting. You have a dry cough that is getting worse. You have swelling or pain in your legs or abdomen that is getting worse. You suddenly gain more than 2 3 lb (0.9 1.4 kg) in a day, or more than 5 lb (2.3 kg) in one week. This amount may be more or less depending on your condition. You have trouble staying awake or you feel confused. You have chest pain. You do not have an appetite. You pass out. If you experience any of these symptoms: Call your local emergency services (911 in the [place] right away or seek help at the emergency department of the nearest hospital. Yellow zone These signs and symptoms mean your condition may be getting worse and you should make some changes: You have trouble breathing when you are active or you need to sleep with extra pillows. You have swelling in your legs or abdomen. You gain 2 3 lb (0.9 1.4 kg) in one day, or 5 lb (2.3 kg) in one week. This amount may be more or less depending on your condition. You get tired easily. You have trouble sleeping. You have a dry cough. If you experience any of these symptoms: Contact your health care provider within the next day. Your health care provider may adjust your medicines. Green zone These signs mean you are doing well and can continue what you are doing: You do not have shortness of breath. You have very little swelling or no new swelling. Your weight is stable (no gain or loss). You have a normal activity level. You do not have chest pain or any other new symptoms. Follow these instructions at home: Take [id number] and prescription medicines only as told by your health care provider. Weigh yourself daily. Your target weight is lb ( kg). ? Call your health care provider if you gain more than lb ( kg) in a day, or more than lb ( kg) in one week. Eat a heart-healthy diet. Work with a diet and dairy nutrition specialist (dietitian) to create an eating plan that is best for you. Keep all follow-up visits as told by your health care provider. This is important. Where to find more information [employer] [employer]: www.heart.org Summary Follow the action plan that was created by you and your health care provider. Get help right away if you have any symptoms in the Red zone. This information is not intended to replace advice given to you by your health care provider. Make sure you discuss any questions you have with your health care provider. Document Released: 05/05/2017 Document Revised: 03/08/2018 Document Reviewed: 05/05/2017 [employer] Patient Education 2020 [employer] Heart Failure Medicines Heart failure is a condition in which the heart cannot pump enough blood through the body. This can cause symptoms such as shortness of breath, fatigue, and confusion. There are two types of heart failure: Heart failure with reduced ejection fraction. In this type, the heart muscle is weak. Heart failure with preserved ejection fraction. In this type, the heart muscle does not fill with blood properly and may be stiff. There is no cure for heart failure. However, being treated with medicines and following your health care provider's instructions about a healthy lifestyle can help you stay active, avoid problems, and live longer. Talk to your health care provider about all medicines that you are taking, how often you should take them, and what possible problems (side effects) they may cause. Talk with your health care provider if you have difficulty affording your medicines. What are some common medicines for heart failure? The medicines that are prescribed for you will depend on your symptoms, the type of heart failure you have, and the cause of your heart failure. In some cases, you may need to take more than one medicine. You will be prescribed the following medicines according to your type of heart failure: Heart failure with reduced ejection fraction Beta-blockers. Angiotensin-converting enzyme (MODESTA) inhibitors. Angiotensin II receptor blockers (ARBs). Angiotensin receptor neprilysin inhibitors (ARNIs). Aldosterone antagonists. Diuretics. Digoxin. Nitrates. Heart failure with preserved ejection fraction Medicines to control blood pressure, including: ? Beta-blockers. ? Angiotensin-converting enzyme (MODESTA) inhibitors. ? Angiotensin II receptor blockers (ARBs). Diuretics. Aldosterone antagonists. What should I know about beta-blockers? These medicines lower your blood pressure and slow your heart rate. This helps to lessen your heart's workload. They can help to relieve chest pain (angina). They can help to improve your heart's ability to pump. They may cause asthma attacks and shortness of breath. Because these medicines slow your heart rate, it is important not to overwork yourself while exercising. Talk to your health care provider about what your target heart rate should be while you exercise. These medicines can hide the symptoms of low blood sugar (glucose), which is also called hypoglycemia. If you have diabetes, make sure to check your blood glucose carefully. If you have hypoglycemia, talk to your health care provider about adjusting your medicines. Beta-blockers may make you feel dizzy or light-headed at first. Do not drive or use heavy machinery when you first start these medicines. Ask your health care provider when it is safe for you to drive. What should I know about MODESTA inhibitors or ARBs? These medicines help to widen arteries and veins. This action lowers your blood pressure and lessens the strain on your heart, making it easier for your heart to pump. They can help to lessen the symptoms of heart failure. ARBs are often used if a person cannot take MODESTA inhibitors. MODESTA inhibitors may cause a dry cough. In rare cases, MODESTA inhibitors and ARBs can cause swelling of the tongue or lips, other swelling, taste problems, and skin rashes. If these symptoms occur, stop taking the medicines and contact your health care provider. Do not take MODESTA inhibitors if you are or may become . These medicines can cause health problems in an unborn baby. These medicines may cause dizziness. You may need regular checkups and blood tests to monitor how they are working. What should I know about ARNIs? These medicines are a combination of an ARB and another medicine. They lower your blood pressure. Side effects may include dry cough, dizziness, low blood pressure, and kidney problems. Do not take ARNIs if you are already taking MODESTA inhibitors or ARBs. You may notice increased urination when taking these medicines. ARNIs can raise the amount of potassium in the blood. Your potassium levels will be monitored regularly by your health care provider. What should I know about aldosterone antagonists? They help the body to remove excess sodium through urination. This helps to lessen the amount of blood that the heart needs to pump. They can also help to lower blood pressure and improve the heart's ability to pump blood. They may cause dizziness, diarrhea, coughing, or flu-like symptoms. They should not be used if you have type 2 diabetes. They can raise the amount of potassium in the blood. Your potassium levels will be monitored regularly by your health care provider. These medicines can make men's breasts large and tender. What should I know about diuretics? Diuretics are medicines that help the body get rid of excess fluid through urination. They can also help lessen your heart's workload. They help to lessen fluid buildup in the lungs, ankles, and feet. They help to lower your blood pressure. They can worsen problems with controlling urination (urinary incontinence). They may cause dizziness, headaches, muscle cramps, and an upset stomach. They can cause weak muscles, dry mouth, or confusion. It is important to drink plenty of fluids while taking these medicines, especially while exercising or on hot days. What should I know about digoxin? Digoxin helps the heart pump more blood efficiently. It also lowers your heart rate. It can help ease heart failure symptoms and may be used if other medicines do not work. It can also help with irregular heartbeat (arrhythmia). It may cause stomach problems, fatigue, headache, drowsiness, or vision problems. What should I know about nitrates? Nitrates relax the blood vessels and increase oxygen and blood supply to the heart. They also lower the blood pressure. They are usually taken to lessen chest pain. They may cause headaches, flushing, or irregular heartbeat. Summary A healthy lifestyle and treatment with medicine will relieve symptoms of heart failure. In some cases, you may need to take more than one medicine. It is important to talk to your health care provider about how often you should take your medicines. Do not skip a dose or change your dosage. Talk to your health care provider about possible side effects of these medicines. This information is not intended to replace advice given to you by your health care provider. Make sure you discuss any questions you have with your health care provider. Document Released: 08/10/2017 Document Revised: 04/10/2018 Document Reviewed: 08/10/2017 [employer] Patient Education 2020 [employer] Additional Information VACCINATE! IT SAVES LIVES! Members of the community who have not yet received the COVID-19 vaccine and would like to receive it can visit one of [facility] vaccine clinics. There are many vaccine clinic locations within the [facility]. For locations and available times, please visit [email or web address] It is important to note that some COVID mobile vaccine clinics are held outdoors and may be canceled in rainy or stormy conditions. To learn more about pediatric vaccinations (ages 5-11), we invite you to visit the [facility] webpage. [email or web address] To learn more about the COVID-19 vaccine, we invite you to visit the CDC website for a list of frequently asked questions.https://www.cdc.gov/cor on-ncov/vaccines/faq.h tml [facility] Patient Portal Access Instructions: Stay connected with your healthcare team and access your personal medical information anytime with the [facility] Patient Portal. Please follow the directions below to create your [facility] account: 1.Access the email account you provided upon registration to the hospital/physician office.2.Look for an invitation email from [facility].3.Open the email and access the invitation link: Accept Invitation to [facility].4.Fill in the required levi to create your account. To access your account, visit [email or web address]. Click the blue button labeled Access Patient Portal and then log in with the username and password that you created in the steps above. You will be able to view your test results, lab results, a summary of your visits, upcoming appointments and more. There is also a convenient messaging option where you can send secure messages to your provider. In addition, you will have the ability to download any documents or summaries to your computer and/or send the information securely to a physician. Remember that your healthcare information is confidential, so carefully consider who you will allow to register on the [facility] Patient Portal for access to your information. You can also access the [facility] Patient Portal on the [employer] nik. Simply click on Patient Portal and then log into your account. If you would like to receive a full copy of your medical records, please contact the [facility] Medical Records Department by calling [phone], Sunday through Sunday between 8 a.m. and 4:30 p.m. HOW TO SAFELY DISPOSE OF PRESCRIPTION MEDICATIONS Please use one of the following methods to safely dispose of your unused medications. 1.Use a drug disposal kit: the drug disposal pouch allows you to safely discard your old and unused drugs. Ask your nurse to give you one when you are discharged.2.Visit a local take-back location: Many local pharmacies and police departments have programs that collect old and unwanted prescription drugs. Call your local pharmacy or go to http://Obsorb.AppFirst/6N8Uy5w to find one close to you.3.Make use of household items: Use cat litter or old coffee grounds to dispose medications if other options are not available. Mix your drugs with these household products, seal them in an airtight container and throw it into the garbage. Call [facility]: [phone] to be sure your drugs can be disposed of in this way. Some medicines may require a different approach.4.Never flush your medications down the toilet. IF YOU HAVE BEEN PRESCRIBED AN OPIOID FOR PAIN If you have been prescribed an opioid (such as hydrocodone, oxycodone or morphine), it is critical to understand the possible side effects and risks of opioid pain medications. Even when taken as directed, opioids can have several side effects including: Tolerance, meaning you might need to take more of a medication for the same pain relief. Nausea, vomiting and/or constipation. Sleepiness, dizziness, dry mouth, confusion, depression or itching. Physical dependence, meaning you have withdrawal symptoms when a medication is stopped, can develop within a few days. KNOW YOUR RESPONSIBILITIES It is important to know exactly how much and how often to take the opioid pain medications you are prescribed. Never take opioids in higher amounts or more often than prescribed. Do not combine opioids with alcohol or other drugs that cause drowsiness, such as benzodiazepines, also known as benzos, including diazepam and alprazolam, muscle relaxants or sleep aids. Never sell or share prescription opioids. This is illegal. Store opioids in a secure place and out of reach of others (including children, family, friends and visitors). The last page of this document has been signed and retained as a CHART COPY. Signatures Patient Education Materials 3- Heart Cath/PCI radial (01/2018)(CUSTOM) Form - Daily Weight Record Fluid Restriction Heart Failure Action Plan Heart Failure Medicines Medication Leaflets My discharge plan and instructions have been reviewed and explained to me and IKARON JOHN A understand my current condition and have read and understand these discharge instructions. I have received a written copy of the plan/instructions. If I have questions, I am aware that I should contact my doctor. Patient/Hopper Filler Signature: Date/Time: Relationship to Patient: ____ Witness Name/Signature: Date/Time: [facility] 03-07-2023 Discharge summary Date of Service 03/07/23 Discharge Diagnosis Acute congestive heart failure , likely 2/2 diastolic CHF [03/07/23] Cardiac cath completed -Discontinued IV Lasix 40 mg BID. START Lasix 40 mg PO daily -START Spironolactone 25 mg once daily. Will obtain BMP in 5-7 days outpatient -Low salt diet [03/05/23] TTE at [facility]: EF 40-45% Elevated blood pressure, likely undiagnosed hypertension [03/07/23] BP 115/63 -Continue to monitor blood pressure -STOP hydralazine 25 mg. -START Toprol-XL 25 mg once daily -START Losartan 25 mg daily Hyperlipidemia, newly diagnosed -Continue Atorvastatin 40 mg PO daily [03/06/23] LDL 111 Frequent PACs -Resolved Mild hypokalemia & hypomagnesia -Resolved Hospital Course [03/07/23] Patient seen and assessed at bedside. No acute events overnight. Has no complaints and feels markedly better. Denies chest pain, palpitations, shortness of breath, lightheadedness. Obtained cardiac catheterization this morning. [03/06/23] Patient is a 78-year-old male, no documented PMH, presents as a transfer from [facility] for shortness of breath x3 weeks. Shortness of breath initially started with significant exercise and lifting; however, in the last week, shortness of breath persisted when at rest. Was having difficulty laying flat at night due to to nonproductive coughing and has been propping himself on pillows. Noticed lower extremity swelling in the last 3 weeks as well. Shortness of breath was at its worst 2 days ago, prompting him to check his blood pressure, systolic in low-200s. His son told him to go to the emergency department. Denies lightheadedness, headache, blurry vision, double vision, slurred speech, chest pain or pressure, palpitations, nausea, vomiting, changes to bowel or bladder, recent bleeding, numbness/tingling. Does admit to heavy dietary salt intake. Does not take any prescription medications. Denies tobacco smoke or alcohol use history. No history or family history of cardiac disease or heart attacks. Presentation to emergency department, patient was tachypneic, hypertensive, and had mild pedal edema. Otherwise, examination was unremarkable. CBC revealed no leukocytosis. Hypokalemia 3.2 and hypomagnesia 1.6, otherwise no electrolyte abnormalities. Creatinine 0.88. Troponin negative x1. D-dimer elevated, 1850. CTPE negative. COVID PCR negative. Echocardiogram was obtained and revealed an ejection fraction of 40-45% with mild diffuse hypokinesis of the left ventricle. Left atrium was moderately enlarged, mild AI. Mild concentric LVH. Patient was ultimately admitted with a diagnosis of acute congestive heart failure and elevated blood pressure and treated with IV diuresis. Allergies NKA Procedures [03/07/23] Left Heart Catheterization Consults No qualifying data available. Imaging Results and Diagnostics XR Chest 1 View Result Date: March 06, 2023 Verified By: CHAZ LEYVA MD CLINICAL STATEMENT: IMPRESSION: Findings suggestive of CHF with mild congestion and edema. Left basilaropacity could represent more focal edema, layering pleural effusion versus asuperimposed infectious or inflammatory process. I have personally reviewed the images of this examination and agree with theresident's findings and interpretation. Physical Exam Vitals and Measurements T: 36.8 C (Oral) TMIN: 36.5 C (Oral) TMAX: 37.1 C (Oral) HR: 90(Monitored) RR: 17 BP: 115/63 SpO2: 91% HT: 170.2 cm WT: 97.5 kg BMI: 33.66 Weight Dosing Weight: 97.5 kg (03/06/23) General: Alert, in no acute discomfort. Skin: warm and dry. no rashes or lesions to exposed skin. Head: normocephalic, atraumatic. Neck: trachea midline. Eyes: Extraocular movements are intact. Normal conjunctiva. ENT: Oral mucous membranes moist. Cardiovascular: regular rate and irregular rhythm. no murmurs, rubs, gallops. No JVP or JVD. Improved pedal edema. Respiratory: Lungs are clear without any wheezes, rhonchi, rales, crackles Abdomen: Abdomen soft. No guarding. No rebound. Musculoskeletal: Moves all extremities equally. Neurologic: Awake alert and oriented x3. No gross focal neurologic deficits. normal speech. Psychiatric: Cooperative. Appropriate mood and affect. Pending Labs and Studies None Code Status Code Status - Ordered -- 03/06/23 15:01:00 EST, Full Code, Constant Order Admission Date 03/06/23 Discharge Date 03/07/23 Patient Instructions Please obtain ordered blood work at [facility] in the next 5-7 days. Do not lift heavier than a milk gallon in your right arm for the next 5 days. Medications New Prescription atorvastatin (Lipitor 40 mg oral tablet)1 tab(s) by mouth once a day. Refills: 3. furosemide (Lasix 40 mg oral tablet)1 tab(s) by mouth once a day. Refills: 3. spironolactone (spironolactone 25 mg oral tablet)1 tab(s) by mouth once a day with a meal. Refills: 3. Changed losartan (losartan 25 mg oral tablet)1 tab(s) by mouth once a day. Refills: 3. metoprolol (Toprol-XL 25 mg oral tablet, extended release)1 tab(s) by mouth once a day with a meal. Refills: 3. Unchanged tamsulosin (tamsulosin 0.4 mg oral capsule)1 cap by mouth once a day. Follow Up Follow Up with VONDA ADLER MD When In 2 weeks Where: [address] [facility] [address] [facility] [place] [address]- [phone] Follow Up with ALPA BOWLES MD When In 2 weeks Where: [facility] [address] [place] [id number]- Follow Up with Prescription Assistance When Only if needed Why: A voucher has been arranged for you and is available for non-narcotic medications ordered by your doctor. To access, bring your prescriptions to the [place] [facility] located in the [place] on the main floor of the [facility] . Pharmacy hours are: Sunday - Sunday: 6 AM to 5 PM Sunday: 8 AM to 2 PM Sunday: CLOSED Where: [phone] Follow Up Appointments No qualifying data available. Follow Up Labs/Studies Discharge Labs Discharge Outpatient Labwork - Ordered -- BMP, Monoitor renal funciton, follow-up within: 5-7 days, Your appointment is: 03/09/23 9:00:00 EST, Results Notify to: ALPA BOWLES MD, 03/07/23 12:36:00 EST Discharge Studies No Follow-up Studies Discharge Diet Discharge Diet - Ordered -- Type of Diet: Regular Diet, Sodium limit: Low, 03/07/23 12:49:00 EST Discharge Activity Discharge Activity - Ordered -- Lifting Restricted less than 5 pounds, of right arm for the next 5 days, 03/07/23 12:49:00 EST Condition on Discharge Stable Discharge Disposition Home Digitally Signed by AGUS VILLALOBOS DO on 03/07/2023 01:07 PM Digitally Signed by TY WEEMS MD [facility] 03-06-2023 History and physical note Date of Service 03/06/23 History of Present Illness Patient is a 78-year-old male, no documented PMH, presents as a transfer from [facility] for shortness of breath x3 weeks. Shortness of breath initially started with significant exercise and lifting; however, in the last week, shortness of breath persisted when at rest. Was having difficulty laying flat at night due to to nonproductive coughing and has been propping himself on pillows. Noticed lower extremity swelling in the last 3 weeks as well. Shortness of breath was at its worst 2 days ago, prompting him to check his blood pressure, systolic in low-200s. His son told him to go to the emergency department. Denies lightheadedness, headache, blurry vision, double vision, slurred speech, chest pain or pressure, palpitations, nausea, vomiting, changes to bowel or bladder, recent bleeding, numbness/tingling. Does admit to heavy dietary salt intake. Does not take any prescription medications. Denies tobacco smoke or alcohol use history. No history or family history of cardiac disease or heart attacks. Presentation to emergency department, patient was tachypneic, hypertensive, and had mild pedal edema. Otherwise, examination was unremarkable. CBC revealed no leukocytosis. Hypokalemia 3.2 and hypomagnesia 1.6, otherwise no electrolyte abnormalities. Creatinine 0.88. Troponin negative x1. D-dimer elevated, 1850. CTPE negative. COVID PCR negative. Echocardiogram was obtained and revealed an ejection fraction of 40-45% with mild diffuse hypokinesis of the left ventricle. Left atrium was moderately enlarged, mild AI. Mild concentric LVH. Patient was ultimately admitted with a diagnosis of acute congestive heart failure and elevated blood pressure and treated with IV diuresis. Review of Systems General: Denies weakness, fatigue, fevers, chills, significant weight loss or gain Skin: Denies rashes or lesions Head: Denies headache, head injury Eyes: Denies blurry vision or double vision ENT: Denies rhinorrhea, congestion, odynophagia Cardiac: Lower extremity swelling. Denies chest pain, palpitations Respiratory: Shortness of breath at rest and with exertion, cough. Denies wheeze, sputum GI: Denies abdominal pain, nausea, vomiting, diarrhea : Denies dysuria or hematuria Musculoskeletal: Denies pain or bony injury Neuro: Denies any focal numbness or weakness Physical Exam Vitals and Measurements T: 36.8 C (Oral) HR: 79(Monitored) RR: 17 BP: 118/78 SpO2: 92% HT: 170.2 cm WT: 97.5 kg BMI: 33.66 Weight Dosing Weight: 97.5 kg (03/06/23) General: Alert, in no acute discomfort. Skin: warm and dry. no rashes or lesions to exposed skin. Head: normocephalic, atraumatic. Neck: trachea midline. Eyes: Extraocular movements are intact. Normal conjunctiva. ENT: Oral mucous membranes moist. Cardiovascular: regular rate and irregular rhythm. no murmurs, rubs, gallops. JVP present, no JVD. Mild peripheral pedal edema, non-pitting Respiratory: Lungs are clear without any wheezes, rhonchi, rales, crackles Abdomen: Abdomen soft. No guarding. No rebound. Musculoskeletal: Moves all extremities equally. Neurologic: Awake alert and oriented x3. No gross focal neurologic deficits. normal speech. Psychiatric: Cooperative. Appropriate mood and affect. Lab Results No 36 Hour Lab Data Assessment/Plan Acute congestive heart failure , likely 2/2 diastolic CHF -Obtain left cardiac catheterization, plan for 03/07 -Obtain CXR -Start IV Lasix 40 mg twice daily -Strict I&Os -Fluid restriction of 1500 mL daily -Obtain basic labs and TSH, A1c, lipid profile prior to starting cardioprotective medications [03/05/23] TTE at [facility]: EF 40-45% Elevated blood pressure, likely undiagnosed hypertension -Continue to monitor blood pressure -Start hydralazine 25 mg p.o. 3 times daily. Hold for SBP less than 90 or HR greater than 100. 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 Mild hypokalemia & hypomagnesia -Replace as needed -Daily BMP and mag level DVT ppx with SQ Lovenox Problem List/Past Medical History Ongoing No qualifying data Historical No qualifying data Procedure/Surgical History Repair of bilateral inguinal hernias: 2002 Tear meniscus REPAIR: 1992 Medications Home Medications (3) Active losartan 50 mg oral tablet 50 mg = 1 tab(s), Oral, Daily metoprolol tartrate 25 mg oral tablet 25 mg = 1 tab(s), Oral, BID tamsulosin 0.4 mg oral capsule 0.4 mg = 1 cap(s), Oral, qDay Allergies NKA Social History Smoking Status - 11/16/2011 Patient is non-smoker Alcohol Use: Never., 03/06/2023 Home/Environment Living situation: Home/Independent. Financial concerns: No. Domestic Concerns: THERE WAS A [employer] WARNING AND HE WAS A LITTLE AFRAID. Lives In: Single level home. Current Home Treatments Blood Pressure monitoring. Spouse Name: SHILPI. Marital Status: ., 03/06/2023 Nutrition/Health Type of diet: Regular. Caffeine intake amount: 1 CUP/DAY. Appetite Good. Eating Difficulties None., 03/06/2023 Substance Abuse Use: Never., 03/06/2023 Tobacco Nicotine Use: Never (less than 100 in lifetime)., 03/06/2023 Family History Cancer: Mother. Immunizations No qualifying data available. Code Status No qualifying data available. Digitally Signed by AGUS VILLALOBOS DO on 03/06/2023 03:29 PM Digitally Signed by AGUS VILLALOBOS DO on 03/06/2023 03:35 PM Digitally Signed by TY WEEMS MD [facility] 03-06-2023 Note ORIGINAL EXAMINATION: ONE XRAY VIEW OF THE CHEST 03/06/2023 3:12 pm COMPARISON: None. HISTORY: ORDERING SYSTEM PROVIDED HISTORY: Reason for Exam: SOB FINDINGS: The cardiomediastinal silhouette is enlarged. There is central vascular and interstitial prominence. Subtle left basilar airspace opacity. No pneumothorax. No acute osseous abnormality. IMPRESSION: Findings suggestive of CHF with mild congestion and edema. Left basilar opacity could represent more focal edema, layering pleural effusion versus a superimposed infectious or inflammatory process. I have personally reviewed the images of this examination and agree with the resident's findings and interpretation. Interpreted by: Chaz Leyva Preliminary Report By: Vanessa Whalen Electronically signed By Chaz Leyva Dictated Date: 03/06/2023 4:23:13 PM Prelim Date: 03/06/2023 4:24:48 PM Sign Date: 03/06/2023 4:31:38 PM Ordering Provider: AGUS VILLALOBOS [facility] 03-06-2023 Note SINUS RHYTHM ATRIAL PREMATURE COMPLEXES LVH WITH SECONDARY REPOLARIZATION ABNORMALITY Electronic Signature: MARCI DUQUE MD 03/07/2023 16:48:55 [facility] 03-06-2023 Evaluation + Plan note Extrac rubin from: Title:History and Physical Author:MERLIN VILLALOBOS DO Date:03/06/23 Acute congestive heart failu re , likely 2/2 diastolic CHF -Obtain left cardiac catheterization, plan for 03/07 -Obtain CXR -Start IV Lasix 40 mg twice daily -Strict I&Os -Fluid restriction of 1500 mL daily -Obtain basic labs and TSH, A1c, lipid profile prior to starting cardioprotective medications [03/05/23] TTE at [facility]: EF 40-45% Elevated blood pressure, likely undiagnosed hypertension -Continue to monitor blood pressure -Start hydralazine 25 mg p.o. 3 times daily. Hold for SBP less than 90 or HR greater than 100. 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 Mild hypokalemia & hypomagnesia -Replace as needed -Daily BMP and mag level DVT ppx with SQ Lovenox Future Appointments Appointment Date:04/13/2023 09:00:00 AM Scheduled Provider: Location:[facility] Appointment Type:[facility] Follow Up [facility] Evaluation noteNo assessment information available [facility] Work Phone: Evaluation note* Diagnosis Onset Date Resolution Status Admit Date Dizziness acute Janice 16th, 202 5 8:53am Chronic systolic (congestive ) heart failure chronic September 22, 2024 8:53am Coronary artery disease chronic J une 2024 8:53am Dyslipidemia chronic September 22 8:53am Hypertension chronic September 22 8:53am Nonischemic cardiomyopathy chronic September 22, 2024 8:53am NSVT (nonsustained ventricul ar tachycardia) chronic September 22, 2024 8:53am Paroxysmal atrial fibrillation chron ic September 22, 2024 8:53am [facility] Work Phone: Hospital course Narrative No data available for this section [facility] Reason for referral (narrative)No [facility] for [facility]: Chief Complaint and Reason for Visit Chief Complaint ROTATOR CUFF TEARS Chief Complaint Admit Date 6 M FU September 22, 2024 8:53 am Reason for Visit Admit Date Dizziness September 22, 2024 8:53 am Chronic systolic (congestive) heart fail ure September 22, 2024 8:53am Coronary artery disease September 22, 2024 8:53am Dyslipidemia September 22, 2024 8:53 am Hypertension September 22, 2024 8:53 am Nonischemic cardiomyopathy September 22 8:53am NSVT (nonsustained ventricular tachycard ia) September 22, 2024 8:53am Paroxysmal atrial fibrillation September 8:53am Summary Purpose Family History Relationship Condition Age at Onset Recorded Date/T [place] mother Malignant neoplasm Unknown brother Congestive heart failure Unknown Brother (s) Status:Active Comments:5. In [place]. Father Status:Active Comments: d. old age at 82. Mother Status:Active Comments: d. Cancer. Sister (s) Status:Active Comments:1. In [place]. No Family History Records Found Advance Directives No Advanced Directives Records FoundNo Advanced Directives Records FoundNo Advanced Directives Records FoundNo Advanced Directives Records Found Additional Source Comments Goals (unrecognized section and content) Goals may be documented in a n alternate section No data available for this sectionGoals may be documented in an alternate section Patient Care team informatio n (unrecognized section and content) Team Status: Active Member Role Status Brennen Bolivar MD Primary Care Provider Active Team Status: Inactive Member Role Status Dates LAYTON Whipple Referring Provider Active Sta rt: September 22, 2024 End: September 22, 2024 Marcia Taylor NP, NUCLEAR MEDICINE SUPERVISOR-C Attending Provider Active Start: September 22, 2024 End: September 22, 2024 Brennen Bolivar MD Primary Care Provider Active Start: September 22, 2024 End: September 22, 2024 (unrecognized sect ion and content) No Status Records FoundNo Status Records FoundNo Status Records FoundNo Status Records Found INFORMATION SOURCE (unrecogn ized section and content) DATE CREATED AUTHOR 03/21/2023 [facility] ([place] DATE CREATED AUTHOR AUTHOR'S ORGANIZ ATION 06/16/2023 [facility] DATE CREATED AUTHOR AUTHOR'S ORGANIZ ATION 05/05/2024 [facility] DATE CREATED AUTHOR AUTHOR'S ORGANIZ ATION 05/17/2024 [facility] FOR RECORDS PERTAINING TO PATIENTS WHO ARE OR HAVE BEEN ENROLLED IN A CHEMICAL DEPENDENCY/SUBSTANCEABUSE PROGRAM, SOME INFORMATION MAY BE OMITTED. This clinical summary was aggregated from multiple sources. Caution should be exercised in using it in the provision of clinical care. This summary normalizes information from multiple sources, and as a consequence, information in this document may materially change the coding, format and clinical context of patient data. In addition, data may be omitted in some cases. CLINICAL DECISIONS SHOULD BE BASED ON THE PRIMARY CLINICAL RECORDS. [facility]. provides no warranty or guarantee of the accuracy or completeness of information in this document.
== END | disposition home or self-care (01) ==
PROVIDERS: Nurse Practitioner Gerontology; PCP Student in an Organized Health Care Education/Training Program; Referring Provider Nurse Practitioner Family; Visit Provider Nurse Practitioner Family
DX: R42 Dizziness and giddiness (principal)
CPT/HCPCS: 36415; 80048; 85025